=== PATIENT | male | born 1940 | race Caucasian/White ===

== ENCOUNTER 2022-11-06 09:10 | Outpatient (RCR) | payer MEDICARE, SELFPAY | END 2022-12-11 12:19 | disposition home or self-care (01) | LOC: PT 09:10 | PROVIDERS: PCP Family Medicine; Visit Provider Anesthesiology Pain Medicine | DX: M62.838 Other muscle spasm (principal); G57.81 Other specified mononeuropathies of right lower limb | CPT/HCPCS: 97113; 97530 ==

== ENCOUNTER 2022-11-14 10:21 | Outpatient (OUT) | payer MEDICARE, SELFPAY ==
--- NOTE | 2022-11-14 11:01 | PM.CN ---
Consult Note: HPI Data of Consult Patient: known to practice within the last 3 years Consult date: 11/14/22 Requesting Physician: SYLVIA ZUNIGA NP Primary Care Provider: Non-Staff Physician, Family Provider: BASSEM Consult Narrative Reason for consult: back pain Narrative: He had LICH done 10/14/22 . He has had 80% relief for several hours after procedure. He would like to proceed with RFA of same area. He is doing aquatic therapy now. No new sensorimotor sx or new bowel or bladder issues. Medication regimen is controlling his pain and assisting him to be able to comlete ADLs. Pain is right low back and buttock, SI pain. No radiculopathy. cc:: CC: SYLVIA ZUNIGA NP Review of Systems ROS Status of ROS 10 or more systems reviewed and unremarkable except as noted in history and below Musculoskeletal Reports: back pain Exam Constitutional Documenting provider has reviewed patient's vital signs: yes Common normals: no apparent distress, average body habitus, oriented x3, healthy appearing, alert and well nourished Orientation/consciousness: Yes awake, Yes oriented to person, Yes oriented to place and Yes oriented to time HENCT Common normals: normocephalic, external ears normal, nasal mucous membranes and turbinates normal and moist oral mucous membranes Respiratory Common normals: normal respiratory effort, no retractions and no use of accessory muscles Effort & inspection: able to speak in complete sentences and symmetric chest movement Back & Pelvis Lumbar spine/lower back: normal to inspection, ROM limited, pain with ROM, paraspinal muscle tenderness and straight leg raise negative bilaterally (positive luis right, positive gaenslens and thigh thrust right, ) Extremity Common normals: normal to inspection, normal capillary refill and no pedal edema Other: muscle strength 4/5 bilat with intact sensation. walks with walker Assessment and Plan Assessment and Plan (1) Lumbar spondylosis: (2) Sacroiliac joint pain: Plan schedule for thermal RFA right LCIH with sedation
== END 2022-11-14 10:22 ==
PROVIDERS: Visit Provider Nurse Practitioner
DX: M47.816 Spondylosis without myelopathy or radiculopathy, lumbar region (principal); M53.3 Sacrococcygeal disorders, not elsewhere classified
CPT/HCPCS: G0463

== ENCOUNTER 2022-11-21 11:55 | Outpatient (OUT) | payer MEDICARE, SELFPAY ==
--- NOTE | 2022-11-21 | ECG_ITS ---
[facility] Test Date: 2022-11-21 Pat Name: Jair Staley Department: Room: - Gender: Male Disease Control Inspector: : 1940 Requested By: [id number] Order Number: [id number] Reading MD: EMORY HOLDER Measurements Intervals [place] Rate: 75 P: 91 NM: 184 QRS: 111 QRSD: 141 T: 37 QT: 404 QTc: 453 Interpretive Statements SINUS RHYTHM INTRAVENTRICULAR CONDUCTION DELAY [130+ ms QRS DURATION] LATERAL MYOCARDIAL INFARCTION [40+ ms Q WAVE AND/OR ST/T ABNORMALITY IN I/aVL/V5/V6], PROBABLY RECENT ACUTE NC No previous ECG available for comparison Electronically Signed On 11-24-2022 7:45:42 EDT by EMORY HOLDER
== END 2022-11-21 11:56 ==
LOC: CARD 11:57
PROVIDERS: Visit Provider Anesthesiology Pain Medicine
DX: Z01.810 Encounter for preprocedural cardiovascular examination (principal)
CPT/HCPCS: 93005

== ENCOUNTER 2023-01-26 08:33 | Outpatient (OUT) | payer MEDICARE, SELFPAY ==
--- NOTE | 2023-01-26 | NM_ITS ---
Patient: EMIR BARNES Exam Date: 01/26/2023 : 1940 Gender:M Ordering : DR ANIL JUDGE Admission #: [id number] Family : Non-Staff Physician Order #: [id number] CLICK HERE TO VIEW EXAM RADIOLOGY REPORT PROCEDURE: NM JAIME PERF SPECT REST STR COMPARISON: None. INDICATIONS: ABNORMAL EKG, HIGH CAD RISK TECHNIQUE: Exam Description: Stress/Rest one day protocol gated SPECT Rest Imagin.5 mCi Tc-99m Cardiolite IV on 01/26/2023 Stress Imaging 30.6 mCi Tc-99m Cardiolite IV on 01/26/2023 Exercise Protocol: 0.4 mg Lexiscan given IV Heart Rate (bpm): Rest: 60 Max: 98 PMHR: 70 Blood Pressure: Rest: 128/68 Max: 128/68 Symptoms: Rest and peak stress ECG findings were abnormal and the exercise portion of the study was abnormal per attending physician Dr. Silvestre due to downsloping inferolateral leads. For more details please see separate cardiac stress test report. FINDINGS: QUALITY OF STUDY: Excellent. PERFUSION DEFECT: LOCATION: Basal inferoseptal. Basal inferior. Mid-inferoseptal. Mid-inferior. SIZE: Medium (3-4 segments). SEVERITY: Severe. TYPE: Mixed. WALL MOTION: Mild hypokinesis: Basal inferoseptal. Basal inferior. Mid-inferoseptal. Mid-inferior. LV SIZE: Normal. 76 mL. TID / TCD: None; 0.8 LVEF: Normal. Calculated EF 68%. SUMMARY: Myocardial perfusion imaging study has ABNORMAL findings. CONCLUSION: 1. Significantly decreased perfusion of the inferior wall and inferior septal wall during stress imaging with slight reperfusion during rest imaging consistent with acute ischemia. 2. Mild hypokinesis of the inferior and inferior septal bender. 3. Normal left ventricle volume and ejection fraction. Dr. Judge is being notified of these findings. Dictated by: Mega Whyte M.D. on 01/27/2023 at 11:15 Approved by: Mega Whyte M.D. on 01/27/2023 at 11:23
[2023-01-26] MEDS: REGADENOSON 0.4 MG/5 ML SYRINGE IV (10:15)
--- NOTE | 2023-01-27 07:08 | PM.STRESS ---
Stress Test Stress Test Allergies Allergy/AdvReac Type Severity Reaction Status Date / Time No Known Drug Allergies Allergy Verified 11/14/22 13:46 Requesting physician: ANIL CONTRERAS Procedure: Lexiscan stress test General Information: Reason for Stress Test: Abnormal EKG Cardiac History and Risk Factors: Former smoker Resting 12 - Lead Electrocardiogram: Rate & rhythm: Normal sinus at a rate of 60. [place]: Right T-waves: Normal ST-segments: Subtle ST segment downsloping in III and V6 Non-specific intraventricular block is present Comparison from prior EKG 11/21/2022: More prominent downsloping in II, III, aVF and V6 Stress Test: Protocol: Lexiscan protocol was initiated with injection of 0.4mg Lexiscan IV push followed by Cardiolite. Blood pressure: Initial & maximum: 128/68 Rate & rhythm: Patient remained in sinus rhythm during the exercise and recovery portions of the study.? The maximum heart rate was 98, which was 70% of the maximum predicted heart rate 139. Occasional PVCs noted. ST-segments & T-waves: After injection of Lexiscan, ST downsloping became prominent in III and V6 with 1mm J-point depression, along with ST segment downsloping in II, aVF, and V5. Patient response/symptoms: There were no symptoms. Interpretation: This is an abnormal Lexiscan stress test based on ST segment downsloping in the inferolateral leads.? No symptoms were reported.? Cardiolite imaging interpretation will be reported separately.? Clinical correlation required.?
== END 2023-01-26 08:34 | disposition home or self-care (01) ==
LOC: NM 08:33
PROVIDERS: Visit Provider Family Medicine
DX: R94.31 Abnormal electrocardiogram [ECG] [EKG] (principal)
CPT/HCPCS: 78452; 93017; A9500; J2785

== ENCOUNTER 2023-02-05 15:08 | Outpatient (OUT) | payer MEDICARE, SELFPAY ==
--- NOTE | 2023-02-05 15:26 | PM.CN ---
Consult Note: HPI Data of Consult Patient: known to practice within the last 3 years Requesting Physician: Eva Onofre NP Primary Care Provider: Non-Staff Physician, Family Provider: BASSEM Consult Narrative Reason for consult: chronic back and hip pain Narrative: Jair Staley a pleasant 82 year old male presents for follow up on chronic low back and hip pain. Today pain 5/10. Patient is awaiting cardiac surgery (unknown what) end of April, so we are not proceeding with Right LCIH RFA at this time. Patient has benefitted from aqua therapy and current medication regimen. Patient would like to continue current treatment plan. cc:: CC: Eva Onofre NP Review of Systems ROS Status of ROS 10 or more systems reviewed and unremarkable except as noted in history and below Musculoskeletal Reports: back pain and other (right LCIH pain/muscle spasms) [facility] Medical History (Updated 02/05/23 @ 15:56 by Eva Onofre NP) Surgical History Meds Home Medications and Allergies Home Medications Medication Instructions Recorded Confirmed Type aspirin 81 mg capsule 81 mg PO DAILY 11/14/22 11/14/22 History diclofenac sodium 50 mg 50 mg PO BID 11/14/22 11/14/22 History tablet,delayed release hydrocodone 5 mg-acetaminophen 325 tab 11/14/22 History mg tablet lisinopril 20 1 tab PO DAILY 11/14/22 11/14/22 History mg-hydrochlorothiazide 12.5 mg tablet melatonin 3 mg tablet 3 mg PO .HS 11/14/22 11/14/22 History methocarbamol 500 mg tablet 500 mg PO BID 11/14/22 11/14/22 History nvtkgovg-vox-tythj acid 0.4 1 tab PO DAILY 11/14/22 11/14/22 History mg-lycopene 300 mcg-lutein 250 mcg tablet (Centrum Silver) omeprazole 40 mg capsule,delayed 40 mg PO DAILY 11/14/22 11/14/22 History release polyethylene glycol 3350 17 17 g PO DAILY 11/14/22 11/14/22 History gram/dose oral powder pregabalin 50 mg capsule (Lyrica) 50 mg PO TID 11/14/22 11/14/22 History simvastatin 20 mg tablet 20 mg PO .HS 11/14/22 11/14/22 History hydrocodone 5 mg-acetaminophen 325 1 tab PO BID PRN pain #60 tabs 02/05/23 Rx mg tablet Allergies Allergy/AdvReac Type Severity Reaction Status Date / Time No Known Drug Allergies Allergy Verified 11/14/22 13:46 Exam Constitutional Documenting provider has reviewed patient's vital signs: yes Common normals: no apparent distress, oriented x3, healthy appearing, alert and well nourished General appearance: cooperative HENMT Common normals: normocephalic, hearing grossly normal bilaterally and moist oral mucous membranes Head and scalp: normocephalic Eye Common normals: PERRL Pupil: PERRL Neck & C-Spine Common normals: full ROM General: normal visual inspection Chest Common normals: inspection of chest normal Respiratory Common normals: normal respiratory effort, no retractions and no use of accessory muscles Back & Pelvis Lumbar spine/lower back: pain with ROM and straight leg raise negative bilaterally Sacroiliac joints: SI joint(s) abnormal (right positive thigh thrust, jose smith. ) Extremity Common normals: normal to inspection and full ROM Neuro Common normals: oriented x3, CN's II-XII intact bilaterally, moves all extremities, no focal motor deficits, no sensory deficits noted and deep tendon reflexes 2+ bilaterally Sensorium/orientation: alert Motor exam: strength 5/5 throughout and no movement abnormalities noted Other: short term memory loss Psych Common normals: mental status grossly normal, thought process normal, cooperative, affect normal, speech normal and activity/motor behavior normal Speech: normal speech Thought process: normal thought process Results Additional Findings Additional findings: I have checked an OARRS report on this patient today and there are no aberrancies noted in the prescribing history.?? A drug screen was completed and reviewed within the last year, and if there has not been a drug screen completed we ordered one today to monitor higher risk, state monitored pain medication use. As part of providing excellent, safe, comprehensive care, the following was completed at our patient's visit: 1. A medication reconciliation and review to ensure accurate knowledge of current/active medications, including asking our patients to inform us about any mill-lsv-ocykcht medications or herbal remedies/nutritional supplements/alternative remedies. 2. A review to specifically ensure our patients have had annual screening for: elevated body mass index (BMI), tobacco use, screening for depression, and screening for unhealthy alcohol use. When screening is concerning, patients are provided with education and the specific recommendation to discuss the concerning health issue and treatment options with their primary care provider. Assessment and Plan Assessment and Plan (1) Neuritis: (2) Muscle spasm: (3) Sacroiliac joint pain: (4) Lumbar spondylosis: (5) Chronic prescription opiate use: Assessment and Plan: tolerating well with functional improvement. no negative side effects Plan refill norco 5-325mg BID PRN, will write for fpc of offer dose in afternoon as patient routinely forgets to ask and lets pain get too bad before taking HS dose refill lyrica 50mg TID continue robaxin 500mg TID continue tylenol 500mg PRN not to exceed max combined dose 3000mg plan for RFA of right LCIH nerve after cardiac procedure will obtain note from cardiology office to find out more about their plan f/u 3 months
== END 2023-02-05 15:09 ==
PROVIDERS: Visit Provider Nurse Practitioner
DX: M47.26 Other spondylosis with radiculopathy, lumbar region (principal); M62.838 Other muscle spasm; M53.3 Sacrococcygeal disorders, not elsewhere classified; Z79.891 Long term (current) use of opiate analgesic
CPT/HCPCS: G0463

== ENCOUNTER 2023-04-23 14:59 | Outpatient (OUT) | payer MEDICARE, SELFPAY ==
--- NOTE | 2023-04-23 15:14 | P.CN_ITS ---
Consult Note: HPI Data of Consult Patient: known to practice within the last 3 years Requesting Physician: Eva Onofre NP Primary Care Provider: Non-Staff Physician, Family Provider: DMISC Consult Narrative Reason for consult: chronic back and hip pain Narrative: Jair Staley a pleasant 82 year old male presents for follow up on chronic low back and hip pain. Today pain 08/15. Patient is awaiting cardiac surgery, so we are not proceeding with Right LCIH RFA at this time. Patient has benefitted from aqua therapy and current medication regimen. Patient would like to continue current treatment plan. cc:: CC: Eva Onofre NP Review of Systems ROS Status of ROS 10 or more systems reviewed and unremarkable except as noted in history and below Musculoskeletal Reports: back pain and other (right LCIH pain/muscle spasms) PFSH PFSH Medical History Acid reflux ?K21.9 - Gastro-esophageal reflux disease without esophagitis (ICD-10) Heart murmur ?R01.1 - Cardiac murmur, unspecified (ICD-10) High cholesterol ?E78.00 - Pure hypercholesterolemia, unspecified (ICD-10) Hypertension ?I10 - Essential (primary) hypertension (ICD-10) Low back pain ?M54.50 - Low back pain, unspecified (ICD-10) Prostate cancer ?C61 - Malignant neoplasm of prostate (ICD-10) Surgical History H/O hemorrhoidectomy ?Z98.890 - Other specified postprocedural states (ICD-10) H/O umbilical hernia repair ?Z98.890 - Other specified postprocedural states (ICD-10) ?Z87.19 - Personal history of other diseases of the digestive system (ICD-10) History of tonsillectomy and adenoidectomy ?Z90.89 - Acquired absence of other organs (ICD-10) Hx of cystoscopy ?Z98.890 - Other specified postprocedural states (ICD-10) Meds Home Medications and Allergies Home Medications Medication Instructions Recorded Confirmed Type aspirin 81 mg capsule 81 mg PO DAILY 11/14/22 11/14/22 History diclofenac sodium 50 mg 50 mg PO BID 11/14/22 11/14/22 History tablet,delayed release hydrocodone 5 mg-acetaminophen 325 tab 11/14/22 History mg tablet lisinopril 20 1 tab PO DAILY 11/14/22 11/14/22 History mg-hydrochlorothiazide 12.5 mg tablet melatonin 3 mg tablet 3 mg PO .HS 11/14/22 11/14/22 History methocarbamol 500 mg tablet 500 mg PO BID 11/14/22 11/14/22 History nazktywe-kry-giahr acid 0.4 1 tab PO DAILY 11/14/22 11/14/22 History mg-lycopene 300 mcg-lutein 250 mcg tablet (Centrum Silver) omeprazole 40 mg capsule,delayed 40 mg PO DAILY 11/14/22 11/14/22 History release polyethylene glycol 3350 17 17 g PO DAILY 11/14/22 11/14/22 History gram/dose oral powder pregabalin 50 mg capsule (Lyrica) 50 mg PO TID 11/14/22 11/14/22 History simvastatin 20 mg tablet 20 mg PO .HS 11/14/22 11/14/22 History hydrocodone 5 mg-acetaminophen 325 1 tab PO BID PRN pain #60 tabs 02/05/23 Rx mg tablet Allergies Allergy/AdvReac Type Severity Reaction Status Date / Time No Known Drug Allergies Allergy Verified 11/14/22 13:46 Exam Constitutional Documenting provider has reviewed patient's vital signs: yes Common normals: no apparent distress, oriented x3, healthy appearing, alert and well nourished General appearance: cooperative [facility] Common normals: normocephalic, hearing grossly normal bilaterally and moist oral mucous membranes Head and scalp: normocephalic Eye Common normals: PERRL Pupil: PERRL Neck & C-Spine Common normals: full ROM General: normal visual inspection Chest Common normals: inspection of chest normal Respiratory Common normals: normal respiratory effort, no retractions and no use of accessory muscles Back & Pelvis Lumbar spine/lower back: pain with ROM and straight leg raise negative bilaterally Sacroiliac joints: SI joint(s) abnormal (right positive thigh thrust, jose smith. ) Extremity Common normals: normal to inspection and full ROM Neuro Common normals: oriented x3, CN's II-XII intact bilaterally, moves all extremities, no focal motor deficits, no sensory deficits noted and deep tendon reflexes 2+ bilaterally Sensorium/orientation: alert Motor exam: strength 5/5 throughout and no movement abnormalities noted Other: short term memory loss Psych Common normals: mental status grossly normal, thought process normal, cooperative, affect normal, speech normal and activity/motor behavior normal Speech: normal speech Thought process: normal thought process Assessment and Plan Assessment and Plan (1) Neuritis: (2) Muscle spasm: (3) Sacroiliac joint pain: (4) Lumbar spondylosis: (5) Chronic prescription opiate use: Assessment and Plan: tolerating well with functional improvement. no negative side effects Plan refill norco 5-325mg BID PRN refill lyrica 50mg TID continue robaxin 500mg TID continue tylenol 500mg PRN not to exceed max combined dose 3000mg plan for RFA of right LCIH nerve after cardiac procedure (05/06/23 then f/u appointments) f/u 3 months
== END 2023-04-23 15:00 | disposition home or self-care (01) ==
LOC: PM 15:00
PROVIDERS: Visit Provider Nurse Practitioner
DX: M79.2 Neuralgia and neuritis, unspecified (principal); M62.838 Other muscle spasm; M53.3 Sacrococcygeal disorders, not elsewhere classified; M47.816 Spondylosis without myelopathy or radiculopathy, lumbar region; Z79.891 Long term (current) use of opiate analgesic
CPT/HCPCS: G0463

== ENCOUNTER 2023-07-22 15:00 | Outpatient (OUT) | payer MEDICARE, SELFPAY ==
--- NOTE | 2023-07-22 15:22 | PM.CN ---
Consult Note: HPI Data of Consult Patient: known to practice within the last 3 years Requesting Physician: Eva Onofre NP Primary Care Provider: Non-Staff Physician, Family Provider: BASSEM Consult Narrative Reason for consult: chronic back and hip pain Narrative: Jair Staley a pleasant 82 year old male presents for follow up on chronic low back and hip pain. Today pain 9/10 in low back and bilateral hips. Patient reports pain increased with bending, ADLS, walking, decreased with sitting. Patient reports at the facility he resides in he is not able to take medications after 10pm because there is no nurse to administer his medications, he is finding that he cannot sleep due to pain as his medication wears off within 4 hours and he stays awake until 2am. Patient would like to discuss increasing his pain medication. Patient has been very compliant with medication regimen and has failed conservative measures, has found benefit to hydrocodone-acetaminophen 5-325 in the past without side effects. cc:: CC: Eva Onofre NP Review of Systems ROS Status of ROS 10 or more systems reviewed and unremarkable except as noted in history and below Musculoskeletal Reports: back pain and other (right [facility] pain/muscle spasms) PFSH PFS Medical History Acid reflux ?K21.9 - Gastro-esophageal reflux disease without esophagitis (ICD-10) Heart murmur ?R01.1 - Cardiac murmur, unspecified (ICD-10) High cholesterol ?E78.00 - Pure hypercholesterolemia, unspecified (ICD-10) Hypertension ?I10 - Essential (primary) hypertension (ICD-10) Low back pain ?M54.50 - Low back pain, unspecified (ICD-10) Prostate cancer ?C61 - Malignant neoplasm of prostate (ICD-10) Surgical History Hx of cystoscopy ?Z98.890 - Other specified postprocedural states (ICD-10) H/O umbilical hernia repair ?Z98.890 - Other specified postprocedural states (ICD-10) ?Z87.19 - Personal history of other diseases of the digestive system (ICD-10) History of tonsillectomy and adenoidectomy ?Z90.89 - Acquired absence of other organs (ICD-10) H/O hemorrhoidectomy ?Z98.890 - Other specified postprocedural states (ICD-10) Meds Home Medications and Allergies Home Medications Medication Instructions Recorded Confirmed Type aspirin 81 mg capsule 81 mg PO DAILY 11/14/22 11/14/22 History diclofenac sodium 50 mg 50 mg PO BID 11/14/22 11/14/22 History tablet,delayed release hydrocodone 5 mg-acetaminophen 325 tab 11/14/22 History mg tablet lisinopril 20 1 tab PO DAILY 11/14/22 11/14/22 History mg-hydrochlorothiazide 12.5 mg tablet melatonin 3 mg tablet 3 mg PO .HS 11/14/22 11/14/22 History methocarbamol 500 mg tablet 500 mg PO TID 11/14/22 04/23/23 History fflrplek-klk-vugwo acid 0.4 1 tab PO DAILY 11/14/22 11/14/22 History mg-lycopene 300 mcg-lutein 250 mcg tablet (Centrum Silver) omeprazole 40 mg capsule,delayed 40 mg PO DAILY 11/14/22 11/14/22 History release polyethylene glycol 3350 17 17 g PO DAILY 11/14/22 11/14/22 History gram/dose oral powder pregabalin 50 mg capsule (Lyrica) 50 mg PO TID 11/14/22 11/14/22 History simvastatin 20 mg tablet 20 mg PO .HS 11/14/22 11/14/22 History hydrocodone 5 mg-acetaminophen 325 1 tab PO BID PRN pain #60 tabs 02/05/23 Rx mg tablet hydrocodone 5 mg-acetaminophen 325 1 tab PO BID PRN pain #60 tabs 05/28/23 Rx mg tablet Allergies Allergy/AdvReac Type Severity Reaction Status Date / Time No Known Drug Allergies Allergy Verified 11/14/22 13:46 Exam Constitutional Documenting provider has reviewed patient's vital signs: yes Common normals: no apparent distress, oriented x3, healthy appearing, alert and well nourished General appearance: cooperative HENMT Common normals: normocephalic, hearing grossly normal bilaterally and moist oral mucous membranes Head and scalp: normocephalic Eye Common normals: PERRL Pupil: PERRL Neck & C-Spine Common normals: full ROM General: normal visual inspection Chest Common normals: inspection of chest normal Respiratory Common normals: normal respiratory effort, no retractions and no use of accessory muscles Back & Pelvis Lumbar spine/lower back: pain with ROM and straight leg raise negative bilaterally Sacroiliac joints: SI joint(s) abnormal (right positive thigh thrust, jose smith. ) Extremity Common normals: normal to inspection and full ROM Neuro Common normals: oriented x3, CN's II-XII intact bilaterally, moves all extremities, no focal motor deficits, no sensory deficits noted and deep tendon reflexes 2+ bilaterally Sensorium/orientation: alert Motor exam: strength 5/5 throughout and no movement abnormalities noted Other: short term memory loss Psych Common normals: mental status grossly normal, thought process normal, cooperative, affect normal, speech normal and activity/motor behavior normal Speech: normal speech Thought process: normal thought process Results Additional Findings Additional findings: I have checked an [place]AR[place] report on this patient today and there are no aberrancies noted in the prescribing history.?? A drug screen was completed and reviewed within the last year, and if there has not been a drug screen completed we ordered one today to monitor higher risk, state monitored pain medication use. As part of providing excellent, safe, comprehensive care, the following was completed at our patient's visit: 1. A medication reconciliation and review to ensure accurate knowledge of current/active medications, including asking our patients to inform us about any xadz-mtj-jcomtue medications or herbal remedies/nutritional supplements/alternative remedies. 2. A review to specifically ensure our patients have had annual screening for: elevated body mass index (BMI), tobacco use, screening for depression, and screening for unhealthy alcohol use. When screening is concerning, patients are provided with education and the specific recommendation to discuss the concerning health issue and treatment options with their primary care provider. Assessment and Plan Assessment and Plan (1) Chronic prescription opiate use: Assessment and Plan: I have refilled the patient's opioid prescriptions at the above noted dose and schedule.? I feel these medications are improving the patient's quality of life and allow them to tolerate activities of daily living as well as participate in recreational activity.? The patient does not report intolerable side effects. The patient is NOT opioid naive and non-pharmacologic and non-opioid treatment has failed to significantly relieve the patient's pain and improve functionality. The patient has a diagnosis that is related to a somatic or visceral pain etiology. ? ?? I reviewed with the patient the potential risks and side effects with the use of? opioid medications including but not limited to respiratory depression,? sedation, and even . I verified the patient has access to naloxone should? these effects occur. I advised the patient to avoid the use of any other? sedation substances including alcohol, THC, and benzodiazepines while? taking opioid medications due to the risk of compounding side effects and? detrimental outcomes. I reviewed the ORTHOPEDICS PEDIATRIC PHYSICIAN, pain treatment agreement, urine? drug screen, and opioid start talking forms. The patient was advised to let? their family know they had Naloxone in case they would need to administer? the medication.? ?? A drug screen was completed within the last year, and no aberrancies were noted regarding their use of controlled substances. The patient understands they are subject to the terms and conditions of the pain contract that they have signed. ? ?? I have checked an OARRS report on this patient today and there are no aberrancies noted in the prescribing history.? (2) Neuritis: (3) Muscle spasm: (4) Sacroiliac joint pain: (5) Lumbar spondylosis: Plan increase norco to 7.5-325mg BID PRN continue HEP as tolerated f/u 1 month
== END 2023-07-22 15:01 | disposition home or self-care (01) ==
PROVIDERS: Visit Provider Nurse Practitioner
DX: Z79.891 Long term (current) use of opiate analgesic (principal); M79.2 Neuralgia and neuritis, unspecified; M62.838 Other muscle spasm; M53.3 Sacrococcygeal disorders, not elsewhere classified; M47.816 Spondylosis without myelopathy or radiculopathy, lumbar region
CPT/HCPCS: G0463

== ENCOUNTER 2023-08-19 15:11 | Outpatient (OUT) | payer MEDICARE, SELFPAY ==
--- NOTE | 2023-08-19 15:19 | PM.CN ---
Consult Note: HPI Data of Consult Patient: known to practice within the last 3 years Requesting Physician: Eva Onofre NP Primary Care Provider: Non-Staff Physician, Family Provider: DMISC Consult Narrative Reason for consult: chronic back and hip pain Narrative: Jair Staley a pleasant 82 year old male presents for follow up on chronic low back and hip pain. Patient reporting increase in numbness tingling and pain radiating into groin and legs with ambulation and standing. Pt has a hx of lumbar facet arthropathy, DDD, and lumbar stenosis on prior MRI. Patient noticing improvement in pain and sleep with increase of norco to 7.5mg BID PRN moderate to severe pain. Patient continues to have moderate to severe pain impacting functional ability, today GLORIA 56%% previously 28%. cc:: CC: Eva Onofre NP Review of Systems ROS Status of ROS 10 or more systems reviewed and unremarkable except as noted in history and below Musculoskeletal Reports: back pain and other (right [facility] pain/muscle spasms) PFSH PFSH Medical History Low back pain ?M54.50 - Low back pain, unspecified (ICD-10) Acid reflux ?K21.9 - Gastro-esophageal reflux disease without esophagitis (ICD-10) Prostate cancer ?C61 - Malignant neoplasm of prostate (ICD-10) Heart murmur ?R01.1 - Cardiac murmur, unspecified (ICD-10) High cholesterol ?E78.00 - Pure hypercholesterolemia, unspecified (ICD-10) Hypertension ?I10 - Essential (primary) hypertension (ICD-10) Surgical History Hx of cystoscopy ?Z98.890 - Other specified postprocedural states (ICD-10) H/O umbilical hernia repair ?Z98.890 - Other specified postprocedural states (ICD-10) ?Z87.19 - Personal history of other diseases of the digestive system (ICD-10) History of tonsillectomy and adenoidectomy ?Z90.89 - Acquired absence of other organs (ICD-10) H/O hemorrhoidectomy ?Z98.890 - Other specified postprocedural states (ICD-10) Meds Home Medications and Allergies Home Medications Medication Instructions Recorded Confirmed Type aspirin 81 mg capsule 81 mg PO DAILY 11/14/22 11/14/22 History diclofenac sodium 50 mg 50 mg PO BID 11/14/22 11/14/22 History tablet,delayed release hydrocodone 5 mg-acetaminophen 325 tab 11/14/22 History mg tablet lisinopril 20 1 tab PO DAILY 11/14/22 11/14/22 History mg-hydrochlorothiazide 12.5 mg tablet melatonin 3 mg tablet 3 mg PO .HS 11/14/22 11/14/22 History methocarbamol 500 mg tablet 500 mg PO TID 11/14/22 04/23/23 History obxxbfjr-hqp-soudi acid 0.4 1 tab PO DAILY 11/14/22 11/14/22 History mg-lycopene 300 mcg-lutein 250 mcg tablet (Centrum Silver) omeprazole 40 mg capsule,delayed 40 mg PO DAILY 11/14/22 11/14/22 History release polyethylene glycol 3350 17 17 g PO DAILY 11/14/22 11/14/22 History gram/dose oral powder pregabalin 50 mg capsule (Lyrica) 50 mg PO TID 11/14/22 11/14/22 History simvastatin 20 mg tablet 20 mg PO .HS 11/14/22 11/14/22 History hydrocodone 5 mg-acetaminophen 325 1 tab PO BID PRN pain #60 tabs 02/05/23 Rx mg tablet hydrocodone 5 mg-acetaminophen 325 1 tab PO BID PRN pain #60 tabs 05/28/23 Rx mg tablet hydrocodone 7.5 mg-acetaminophen 1 tab PO BID PRN pain #60 tabs 07/22/23 Rx 325 mg tablet Allergies Allergy/AdvReac Type Severity Reaction Status Date / Time No Known Drug Allergies Allergy Verified 11/14/22 13:46 Exam Constitutional Documenting provider has reviewed patient's vital signs: yes Common normals: no apparent distress, oriented x3, healthy appearing, alert and well nourished General appearance: cooperative HENMT Common normals: normocephalic, hearing grossly normal bilaterally and moist oral mucous membranes Head and scalp: normocephalic Eye Common normals: PERRL Pupil: PERRL Neck & C-Spine Common normals: full ROM General: normal visual inspection Chest Common normals: inspection of chest normal Respiratory Common normals: normal respiratory effort, no retractions and no use of accessory muscles Back & Pelvis Lumbar spine/lower back: pain with ROM and straight leg raise negative bilaterally Sacroiliac joints: SI joint(s) abnormal (right positive thigh thrust, jose smith. ) Other: strength 4/5 in BLE Extremity Common normals: normal to inspection and full ROM Neuro Common normals: oriented x3, CN's II-XII intact bilaterally, moves all extremities, no focal motor deficits, no sensory deficits noted and deep tendon reflexes 2+ bilaterally Sensorium/orientation: alert Gait (neuro): assistive device used walker Motor exam: no movement abnormalities noted and strength abnormal Other: short term memory loss Psych Common normals: mental status grossly normal, thought process normal, cooperative, affect normal, speech normal and activity/motor behavior normal Speech: normal speech Thought process: normal thought process Results Additional Findings Additional findings: If on a controlled substance or opioids, I have checked an OARRS report on this patient and there are no aberrancies noted in the prescribing history.??If on a controlled substance or opioid a drug screen was completed and reviewed within the last year, and if there has not been a drug screen completed we ordered one today to monitor higher risk, state monitored pain medication use. As part of providing excellent, safe, comprehensive care, the following was completed at our patient's visit: 1. A medication reconciliation and review to ensure accurate knowledge of current/active medications, including asking our patients to inform us about any xsna-spy-bzyeypd medications or herbal remedies/nutritional supplements/alternative remedies. 2. A review to specifically ensure our patients have had annual screening for screening for depression, screening for tobacco use, and screening for unhealthy alcohol use. For concerning screenings had a discussion with the patient, provided patient education, and recommended follow-up with primary care provider when appropriate. If patient noted with a risk of falling, they received education on strength, gait, and balance training to prevent future risk of falling. Assessment and Plan Assessment and Plan (1) Lumbar stenosis with neurogenic claudication: (2) Chronic prescription opiate use: Assessment and Plan: I have refilled the patient's opioid prescriptions at the above noted dose and schedule.? I feel these medications are improving the patient's quality of life and allow them to tolerate activities of daily living as well as participate in recreational activity.? The patient does not report intolerable side effects. The patient is NOT opioid naive and non-pharmacologic and non-opioid treatment has failed to significantly relieve the patient's pain and improve functionality. The patient has a diagnosis that is related to a somatic or visceral pain etiology. ? ?? I reviewed with the patient the potential risks and side effects with the use of? opioid medications including but not limited to respiratory depression,? sedation, and even . I verified the patient has access to naloxone should? these effects occur. I advised the patient to avoid the use of any other? sedation substances including alcohol, THC, and benzodiazepines while? taking opioid medications due to the risk of compounding side effects and? detrimental outcomes. I reviewed the MICROMATIC HONE OPERATOR, pain treatment agreement, urine? drug screen, and opioid start talking forms. The patient was advised to let? their family know they had Naloxone in case they would need to administer? the medication.? ?? A drug screen was completed within the last year, and no aberrancies were noted regarding their use of controlled substances. The patient understands they are subject to the terms and conditions of the pain contract that they have signed. ? ?? I have checked an OARRS report on this patient today and there are no aberrancies noted in the prescribing history.? (3) Neuritis: Assessment and Plan: plan for right [facility] RFA with Dr Boo in the future (4) Muscle spasm: (5) Sacroiliac joint pain: (6) Lumbar spondylosis: Plan bilateral L3-4 TFESI then bilateral L4-5 TFESI 2 weeks following increase lyrica to 75mg TID, side effects and risks vs benefits discussed continue norco to 7.5-325mg BID PRN continue HEP as tolerated f/u 2 weeks after injections
== END 2023-08-19 15:12 | disposition home or self-care (01) ==
LOC: PM 15:11
PROVIDERS: Visit Provider Nurse Practitioner
DX: M48.062 Spinal stenosis, lumbar region with neurogenic claudication (principal); Z79.891 Long term (current) use of opiate analgesic; M79.2 Neuralgia and neuritis, unspecified; M62.838 Other muscle spasm; M53.3 Sacrococcygeal disorders, not elsewhere classified; M47.816 Spondylosis without myelopathy or radiculopathy, lumbar region
CPT/HCPCS: G0463

== ENCOUNTER → 2023-09-07 10:17 | Day surgery (SDC) | payer MEDICARE, SELFPAY ==
[2023-09-07 10:57] VITALS: BP 113/73; PULSE 85; TEMP 36.2; O2SAT 96
[2023-09-07 11:23] VITALS: BP 112/62; BP 116/62; PULSE 70; PULSE 74; O2SAT 93; O2SAT 98
[2023-09-07] MEDS: 0.9 % SODIUM CHLORIDE 10 ML INJ (11:23)
[2023-09-07] MEDS: BUPIVACAINE HCL 0.25% PF 25 MG/10 ML VIAL INJ (11:24)
[2023-09-07] MEDS: DEXAMETHASONE SOD PHOS 10 MG/ML VIAL INJ (11:24)
[2023-09-07] MEDS: IOHEXOL 240 MG/ML - 10 ML VIAL INJ (11:24)
[2023-09-07] MEDS: LIDOCAINE HCL 2% PF 100 MG/5 ML VIAL 3 ML INJ (11:25)
--- NOTE | 2023-09-07 11:27 | W.PM.PROCNOT ---
Date of procedure: 09/07/23 Pre-op diagnosis: Lumbar stenosis with neurogenic claudication Post-op diagnosis: same as pre-op Procedure: Procedure: Bilateral L3-4 transforaminal epidural steroid injection Medications: Bupivacaine 0.25% 2cc, lidocaine 2% 1cc, dexamethasone 10mg The patient was seen and examined in the preoperative holding area.? Informed consent was obtained and placed on the chart.? Patient was brought to the medical procedure unit and placed in the prone position where a timeout was completed verifying the correct patient, procedure site, position, and planned special equipment using sterile aseptic technique.? Under direct fluoroscopic visualization a 25-gauge Quincke tipped spinal needle was advanced at level left L3-4 to the designated neural foramen where contrast dye was injected to show adequate spread.? There was no evidence of vascular or adverse uptake.? Epidural spread was appreciated.? The above-mentioned injectate was then placed in a 1.5 mL aliquot preceded by negative aspiration.? The needle was removed. The same procedure, at the same level, was completed on the opposite side. ? Patient was taken to the postprocedural recovery area and monitored for an appropriate length of time before found suitable for discharge in the accompaniment of a responsible adult. Anesthesia: Local Surgeon: Cesar Brownlee Pathology: none sent Condition: stable Disposition: no change
--- OUTSIDE RECORDS SUMMARY | 2023-09-07 12:23 | XMS_ITS | CCD ---
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 Name Role Phone LIZET COLEMAN Primary Care Physician [phone] GARCIA ., EDMUNDO Consulting Unavailable FURLONG, DR SHMUEL Teresa Primary Care Unavailable DILLON ., DR ESTEPHANIE Dash Admitting Unavailable DILLON ., DR ESTEPHANIE Dash Attending Unavailable MISC, DR NOLASCO Primary Care Unavailable LAKSHMIPATHY ., HERACLIO Attending Sharon vailable LAKSHMIPATHY ., HERACLIO Admitting Sharon vailable DILLON ., DR ESTEPHANIE Dash Admitting Unavailable FURLONG, DR SHMUEL Teresa Primary Care Unavailable GARCIA ., EDMUNDO Consulting Unavailable DILLON ., DR ESTEPHANIE Dash Attending Unavailable DILLON ., DR ESTEPHANIE Dash Admitting Unavailable FURLONG, DR SHMUEL Teresa Primary Care Unavailable FURLONG, DR SHMUEL Teresa Consulting Unavailable DILLON ., DR ESTEPHANIE Dash Attending Unavailable GARCIA ., EDMUNDO Consulting Unavailable DILLON ., DR ESTEPHANIE Dash Admitting Unavailable FURLONG, DR SHMUEL Teresa Primary Care Unavailable DILLON ., DR ESTEPHANIE Dash Attending Unavailable DILLON ., DR ESTEPHANIE Dash Consulting Unavailable SWETHA HERNANDEZ Consulting Unavailable FURLONG, DR SHMUEL Teresa Primary Care Unavailable FURLONG, DR SHMUEL Teresa Consulting Unavailable DILLON ., DR ESTEPHANIE Dash Attending Unavailable DILLON ., DR ESTEPHANIE Dash Admitting Unavailable GARCIA ., EDMUNDO Consulting Unavailable MISC, DR NOLASCO Primary Care Unavailable MISC, DR NOLASCO Consulting Unavailable LAKSHMIPATHY ., HERACLIO Attending Sharon vailable LAKSHMIPATHY ., HERACLIO Admitting Sharon vailable FURLONG, DR SHMUEL Teresa Primary Care Unavailable GARCIA ., EDMUNDO Consulting Unavailable DILLON ., DR ESTEPHANIE Dash Attending Unavailable DILLON ., DR ESTEPHANIE Dash Admitting Unavailable MISC, DR NOLASCO Primary Care Unavailable LAKSHMIPATHY ., NARENDRANATH Attending Sharon vailable LAKSHMIPATHY ., NARENDRANATH Consulting Sharon vailable RANDYSHMIPATHY ., NARENDRANATH Admitting Sharon vailable DR SHMUEL JUDGE Primary Care Unavailable LAKSHMIPATHY ., NARENDRANATH Consulting Sharon vailable LAKSHMIPATHY ., NARENDRANATH Admitting Sharon vailable LAKSHMIPATHY ., NARENDRANATH Attending Sharon vailable Erika CAREY Admitting Unavailable Erika CAREY Attending Unavailable SHMUEL JUDGE Primary Care Unavailable Shmuel Judge DO Primary Care Provider EDILSON LLANES Attending Unavailable SHMUEL JUDGE Referring Unavailable SHMUEL JUDGE Primary Care Unavailable Medications Current Medications Medication Drug Class(es) Dates Sig (Normalized) Sig (Original) acetaminophen 500 mg oral tablet (3 sources) take 1 tablet by mouth every six hours as needed for pain acetaminophen (TYLENOL EXTRA STRENGTH) 500 mg tablet Take 1 tablet (500 mg total) by mouth every 6 (six) hours as needed for pain. 0 Active Acetaminophen / Caffeine / Magnesium Salicylate (1 source) Central Nervous System Stimulant, Methylxanthine Start: 02-21-2019 Arthriten Start Date: 02/21/19 Status: Ordered acetaminophen 325 mg / HYDROcodone bitartrate 5 mg oral tablet (3 sources) Opioid Agonist take 1 tablet by mouth every six hours as needed for pain HYDROcodone-acetam inophen (NORCO) 5-325 mg per tablet Take 1 tablet by mouth every 6 (six) hours as needed for pain. 0 Active Allergy Relief (1 source) Start: 02-21-2019 Allergy Relief Start Date: 02/21/19 Status: Ordered aspirin 81 mg chewable tablet (4 sources) Platelet Aggregation Inhibitor, Nonsteroidal Anti-inflammatory Drug Start: 02-21-2019 aspirin 81 mg Chew Tab 81 mg = 1 tab(s), Chewed, Daily Start Date: 02/21/19 Status: Ordered take 1 tablet by mouth in the mo rning aspirin 81 mg Take 1 tablet (81 mg total) by mouth in the morning. 0 Active bisacodyl 5 mg delayed release oral tablet (1 source) Stimulant Laxative Start: 09-18-2021 take 2 tablets by mouth once daily as needed for constipation bisacodyl 5 mg Oral EC Tab 10 mg = 2 tab(s), Oral, Daily, PRN for constipation, # 20 tab(s), Refills(s) 0 Start Date: 09/18/21 Status: Ordered cariprazine (1 source) Atypical Antipsychotic Start: 10-12-2020 Vraylar Oral, Daily, Refills(s) 0 Start Date: 10/12/20 Status: Ordered diclofenac potassium 50 mg oral tablet (4 sources) Nonsteroidal Anti-inflammatory Drug Start: 09-18-2021 take 1 mg by mouth three times daily diclofenac sodium 50 mg Oral EC Tab mg tab(s), Oral, TID, Refills(s) 0 Start Date: 09/18/21 Status: Ordered take 1 tablet by pallavi th twice daily as needed for pain diclofenac (VOLTAREN) 50 mg EC tablet Ta ke 1 tablet (50 mg total) by mouth 2 (two) times a day as needed (pain). 0 Active docusate sodium 100 mg oral capsule (3 sources) take 1 capsule by mouth in the morning, then take 1 capsule by mouth at bedtime docusate sodium (COLACE) 100 mg capsule Take 1 capsule (100 mg total) by mouth in the morning and 1 capsule (100 mg total) before bedtime. 0 Active hydroCHLOROthiazide 12.5 mg / lisinopril 20 mg oral tablet (4 sources) Thiazide Diuretic, Angiotensin Converting Enzyme Inhibitor Start: 02-22-20 take 1 tablet by mouth once daily hydrochlorothia zide-lisinopril 12.5 mg-20 mg Tab 1 tab(s), Oral, Daily Start Date: 02/21/19 Status: Ordered take 1 tablet by pallavi th in the morning, then take 0.5 tablet by mouth once daily lisinopril-hydroCHLOROthiazide (PRINZIDE ,ZESTORETIC) 20-12.5 mg per tablet Take 1 tablet by mouth in the morning. 1/2 tablet daily. 0 Active loratadine 10 mg oral tablet (3 sources) take 1 tablet by mouth in the morning loratadine (CLARITIN) 10 mg tablet Take 1 tablet (10 mg total) by mouth in the morning. 0 Active melatonin 10 mg oral tablet (3 sources) melatonin 10 mg tablet Take by mouth. 0 Active methocarbamol 500 mg oral tablet (4 sources) Muscle Relaxant Start: 3 take 1 tablet by mouth every eight hours methocarbamoL (ROBAXIN) 500 mg tablet Take 1 tablet (500 mg total) by mouth every 8 (eight) hours. 0 10/02/2022 Active Start: 09-18-2021 take 1 mg by mouth f our times daily Robaxin 500 mg Tab mg tab(s), Oral, QID, Refills(s) 0 Start Date: 09/18/21 Status: Ordered 24 hr metoprolol succinate 25 mg extended release oral tablet (1 source) beta-Adrenergic Dane Start: 06-10-2023 take 1 tablet by mouth every twenty-four hours in the morning metoprolol succinate XL (TOPROL XL) 25 mg 24 hr tablet Take 1 tablet (25 mg total) by mouth in the morning. 90 tablet 3 06/10/2023 Active Start: 06-10-2023 take 1 tablet by pallavi th every twenty-four hours in the morning metoprolol succinate XL (TOPROL XL) 25 mg 24 hr tablet Take 1 tablet (25 mg total) by mouth in the morning. 90 tablet 3 06/10/2023 Active Multi Vitamin+ (1 source) Start: 02-21-2019 Multi Vitamin+ Start Date: 02/21/19 Status: Ordered multivitamin capsule (3 sources) take 1 capsule by mouth in the morning multivitamin capsule Take 1 capsule by mouth in the morning. 0 Active gztqprhczbwl-wdeu-ds lic acid (CERTAVITE-ANTIOXIDA NT) 18-400 mg-mcg tablet (3 sources) multivitamin-iro n-f olic acid (CERTAVITE-ANTIOXID ANT) 18-400 mg-mcg tablet Take 1 capsule by mouth. 0 Active nitroglycerin 0.4 mg sublingual tablet (3 sources) Nitrate Vasodilator Start: 06-02-2023 nitroglycerin (NITROSTAT) 0.[address] 1 tablet (0.4 mg total) under the tongue every 5 (five) minutes as needed for chest pain. 25 tablet 1 06/02/2023 Active Omeprazole (4 sources) Proton Pump Inhibitor Start: 02-21-2019 omeprazole Start Date: 02/21/19 Status: Ordered take 1 capsule by mouth in the m orning omeprazole (PriLOSEC) 20 mg capsule Take 1 capsule (20 mg total) by mouth in the morning. 0 Active Phl-Sennosides (1 source) Start: 09-18-2021 Phl-Sennosides Refills(s) 0 Start Date: 09/18/21 Status: Ordered polyethylene glycol 3350 03616 mg powder for oral solution (3 sources) Osmotic Laxative polyethylene glycol (GLYCOLAX) 17 gram/dose powder Take 17 g by mouth daily as needed. 0 Active pregabalin 50 mg oral capsule (3 sources) Start: 10-02-2022 take 1 capsule by mouth every eight hours pregabalin (LYRICA) 50 mg capsule Take 1 capsule (50 mg total) by mouth every 8 (eight) hours. 0 10/02/2022 Active simvastatin 80 mg oral tablet (4 sources) HMG-CoA Reductase Inhibitor Start: 02-21-2019 take 80 mg by mouth once daily at bedtime simvastatin 80 mg, Oral, Once a day (at bedtime) Start Date: 02/21/19 Status: Ordered take 1 tablet by mouth once nahid y simvastatin (ZOCOR) 40 mg tablet Take 1 tablet (40 mg total) by mouth nightly. 0 Active traMADol (1 source) Opioid Agonist Start: 09-18-2021 tramadol Oral, Refills(s) 0 Start Date: 09/18/21 Status: Ordered Problems Active Problems Problem Classification Problem Date Documented Date Episodic/Chronic Cancer of prostate (2 sources) Personal history of malignant neoplasm of prostate; Translations: [History of malignant neoplasm of prostate] Onset: 09-18-2021 Episodic Conduction disorders (3 sources) Intraventricular conduction defect; Translations: [Nonspecific intraventricular block] Onset: 05-06-2023 05-06-2023 Chronic Coronary atherosclerosis and other heart disease (5 sources) Atherosclerotic heart disease of [place] coronary artery without angina pectoris; Translations: [Coronary arteriosclerosis] Onset: 05-13-2023 06-02-2023 Chronic Disorders of lipid metabolism (4 sources) Hyperlipidemia; Translations: [Other hyperlipidemia] Onset: 05-06-2023 02-21-2019 Chronic Esophageal disorders (1 source) Gastroesophageal reflux disease 02-21-2019 Chronic Essential hypertension (5 sources) Hypertensive disorder; Translations: [Essential (primary) hypertension] Onset: 05-06-2023 02-21-2019 Chronic Genitourinary symptoms and ill-defined conditions (2 sources) Microscopic hematuria; Translations: [Nocturia] 02-21-2019 Episodic Heart valve disorders (6 sources) Nonrheumatic aortic (valve) stenosis; Translations: [Aortic stenosis, non-rheumatic ] Onset: 12-23-2022 12-23-2022 Chronic Hyperplasia of prostate (2 sources) Benign prostatic hypertrophy with outflow obstruction; Translations: [Benign prostatic hyperplasia with lower urinary tract symptoms] Onset: 09-18-2021 Chronic Other connective tissue disease (5 sources) Other muscle spasm; Translations: [OTHER MUSCLE SPASM] Onset: 10-06-2022 Episodic Other connective tissue disease (1 source) Neuralgia and neuritis, unspecified; Translations: [NEURALGIA AND NEURITIS UNSPECIFIED] Onset: 10-06-2022 Episodic Other diseases of kidney and ureters (1 source) Cyst of kidney 02-21-2019 Episodic Other infections; including parasitic (1 source) History of herpes zoster 02-21-2019 Episodic Other nervous system disorders (5 sources) Other specified mononeuropathies of right lower limb; Translations: [OTH SPEC MONONEUROPATH RT LOW LIMB] Onset: 10-14-2022 Chronic Other nervous system disorders (2 sources) Other chronic pain; Translations: [OTHER CHRONIC PAIN] Onset: 07-15-2022 Chronic Other non-traumatic joint disorders (3 sources) Pain in right hip; Translations: [PAIN IN RIGHT HIP] Onset: 10-02-2022 Episodic Other screening for suspected conditions (not mental disorders or infectious disease) (11 sources) Raised prostate specific antigen; Translations: [Elevated prostate specific antigen [PSA]] Onset: 09-18-2021 Episodic Screening and history of mental health and substance abuse codes (1 source) Ex-smoker 02-21-2019 Episodic Spondylosis; intervertebral disc disorders; other back problems (9 sources) Other spondylosis with radiculopathy, lumbar region; Translations: [Lumbar spondylosis] Onset: 10-30-2021 Chronic Unclassified (1 source) Drug therapy finding 02-21-2019 Unclassified (1 source) LOW BACK PAIN, UNSPECIFIED; Translations: [LOW BACK PAIN, UNSPECIFIED] Onset: 07-15-2022 Viral infection (1 source) Herpes zoster 08-22-2019 Episodic Past or Other Problems Problem Classification Problem Date Documented Date Episodic/Chronic Mood disorders (3 sources) Mood disorders Onset: 06-02-2023 06-02-2023 Residual codes; unclassified (3 sources) Edema of foot; Translations: [Localized edema] Onset: 12-23-2022 12-23-2022 Episodic Spondylosis; intervertebral disc disorders; other back problems (10 sources) Intervertebral disc disorders with radiculopathy, lumbar region; Translations: [Spinal stenosis, lumbar region without neurogenic claudication] Onset: 11-19-2021 Episodic Results Test Name Value Interpretation Reference Range Facil ity Patient Educationon 09-19-19 Patient Education Oncology Prostate Cancer The prostate is a walnut-sized gland that is involved in the production of semen. It is located below a man's bladder, in front of the rectum. Prostate cancer is the abnormal growth of cells in the prostate gland. What are the causes? The exact cause of this condition is not known. What increases the risk? This condition is more likely to develop in men who: ? Are older than age 65. ? Are -[place]. ? Are obese. ? Have a family history of prostate cancer. ? Have a family history of breast cancer. What are the signs or symptoms? Symptoms of this condition include: ? A need to urinate often. ? Weak or interrupted flow of urine. ? Trouble starting or stopping urination. ? Inability to urinate. ? Pain or burning during urination. ? Painful ejaculation. ? Blood in urine or semen. ? Persistent pain or discomfort in the lower back, lower abdomen, hips, or upper thighs. ? Trouble getting an erection. ? Trouble emptying the bladder all the way. How is this diagnosed? This condition can be diagnosed with: ? A digital rectal exam. For this exam, a health care provider inserts a gloved finger into the rectum to feel the prostate gland. ? A blood test called a prostate-specific antigen (PSA) test. ? An imaging test called transrectal ultrasonography. ? A procedure in which a sample of tissue is taken from the prostate and examined under a microscope (prostate biopsy). Once the condition is diagnosed, tests will be done to determine how far the cancer has spread. This is called staging the cancer. Staging may involve imaging tests, such as: ? A bone scan. ? A CT scan. ? A PET scan. ? An MRI. The stages of prostate cancer are as follows: ? Stage I. At this stage, the cancer is found in the prostate only. The cancer is not visible on imaging tests and it is usually found by accident, such as during a prostate surgery. ? Stage II. At this stage, the cancer is more advanced than it is in stage I, but the cancer has not spread outside the prostate. ? Stage III. At this stage, the cancer has spread beyond the outer layer of the prostate to nearby tissues. The cancer may be found in the seminal vesicles, which are near the bladder and the prostate. ? Stage IV. At this stage, the cancer has spread other parts of the body, such as the lymph nodes, bones, bladder, rectum, liver, or lungs. How is this treated? Treatment for this condition depends on several factors, including the stage of the cancer, your age, personal preferences, and your overall health. Talk with your health care provider about treatment options that are recommended for you. Common treatments include: ? Observation for early stage prostate cancer (active surveillance). This involves having exams, blood tests, and in some cases, more biopsies. For some men, this is the only treatment needed. ? Surgery. Types of surgeries include: ? Open surgery. In this surgery, a larger incision is made to remove the prostate. ? A laparoscopic prostatectomy. This is a surgery to remove the prostate and lymph nodes through several, small incisions. It is often referred to as a minimally invasive surgery. ? A robotic prostatectomy. This is a surgery to remove the prostate and lymph nodes with the help of a robotic arm that is controlled by a computer. ? Orchiectomy. This is a surgery to remove the testicles. ? Cryosurgery. This is a surgery to freeze and destroy cancer cells. ? Radiation treatment. Types of radiation treatment include: ? External beam radiation. This type aims beams of radiation from outside the body at the prostate to destroy cancerous cells. ? Brachytherapy. This type uses radioactive needles, seeds, wires, or tubes that are implanted into the prostate gland. Like external beam radiation, brachytherapy destroys cancerous cells. An advantage is that this type of radiation limits the damage to surrounding tissue and has fewer side effects. ? High-intensity, focused ultrasonography. This treatment destroys cancer cells by delivering high-energy ultrasound waves to the cancerous cells. ? Chemotherapy medicines. This treatment kills cancer cells or stops them from multiplying. ? Hormone treatment. This treatment involves taking medicines that act on one of the male hormones (testosterone): ? By stopping your body from producing testosterone. ? By blocking testosterone from reaching cancer cells. Follow these instructions at home: ? Take enig-qqm-uegkqvn and prescription medicines only as told by your health care provider. ? Maintain a healthy diet. ? Get plenty of sleep. ? Consider joining a support group for men who have prostate cancer. Meeting with a support group may help you learn to cope with the stress of having cancer. ? Keep all follow-up visits as told by your health care provider. This is important. ? If you have to go to the hospital, notify your cancer specialis (more content not included)... [facility] Urology Office/Clinic Noteon 09-18-2021 Urology Office/Clinic Note Chief Complaint pt here for 10mo f/u with psa HPI Staff pt is here for 10mo f/u with PSA. Recent PSA done on 09/11/21 is at <0.05, previous PSA done 08/15/20 was at 0.2. previous dx: elevated psa, history of prostate cancer (S/P brachytherapy 2006), & enlarged prostate (pt is not on any BPH meds at this time.) pt was unable to give urine sample. Dysuria: _denies Incomplete bladder emptying: _denies Hematuria: _denies visibly Frequency: _denies Urgency: _denies Nocturia: _3x Stream: _steady Leaking: _denies Post void dripping: _yes a little Wearing pads/ Depends: _denies Urge incontinence: _denies Stress incontinence: _denies Incontinence without Sensory Awareness: _denies Abdominal pain: _denies Flank pain: _denies Sexual complaints: _ History of Present Illness I have reviewed and verified the staff HPI to be accurate for this encounter. Review of Systems ROS - Provider Constitutional: denies weight loss, denies hot flashes. Eyes: denies eye problems. Gastrointestinal: denies nausea, denies vomiting. Cardiovascular: denies chest pain or angina. Integumentary: no dryness Musculoskeletal: denies musculoskeletal symptoms. ENMT: denies otolaryngeal symptoms. Respiratory: no shortness of breath. Heme/Lymph: denies easy bleeding tendency, denies easy bruising tendency. Psychiatric: no confusion, no anxiety. Genitourinary: denies dysuria, denies hematuria, denies discharge, denies urinary frequency, denies urinary hesitancy, denies nocturia, denies incontinence, denies genital sores, denies decreased libido, and denies erectile dysfunction. Physical Exam Vitals & Measurements HR: 93(Peripheral) BP: 142/91 HT: 183.0 cm HT: 183 cm WT: 75.0 kg WT: 75 kg BMI: 22.4 General Appearance: alert, no distress, well nourished, well developed male. Genitourinary: normal scrotum, normal testes, normal urethra, normal epididymis, normal vas deferens/spermatic cord. Flank Pain: none. Bladder: nonpalpable. Assessment/Plan 1. History of prostate cancer (Z85.46: Personal history of malignant neoplasm of prostate) S/p Brachytherapy 2006. good cancer control >15 years out from seeds.Recent PSA done on 09/11/21 is at <0.05, previous PSA done 08/15/20 was at 0.2. Discussed with pt if he has any concerns he can contact our office but his PCP can check his PSA now. All questions/concerns were discussed. Pt. acknowledges understanding. 2. Enlarged prostate with urinary obstruction (N40.1: Benign prostatic hyperplasia with lower urinary tract symptoms) Pt. is not on any BPH meds. at this time. Overall pt states he is doing well, has a steady stream and drinks plenty of fluids. Pt denies any burning or seeing any blood in his urine. Pt states he goes to the bathroom on a regular basis. Pt understands and acknowledges. Follow-up With When Contact Information BRINA MENENDEZ, Rojas Frank, URL Only if needed [facility] [address], [place] [address]- [phone] Additional Instructions: Patient Education Prostate Cancer IKathy_, personally scribed for Dr. Kelly on 09/18/2021 09:22:59. . Documentation recorded by the cheriseibKathy barbosa, accurately reflects the services(s) I performed and decisions made by me. Problem List/Past Medical History Ongoing Anticoagulated Chronic GERD Elevated PSA Enlarged prostate with urinary obstruction Former smoker History of prostate cancer History of shingles Hyperlipidemia Hypertension Microscopic hematuria Nocturia Renal cyst Shingles outbreak Historical No qualifying data Procedure/Surgical History Cystoscopy (07/06/2012), [place] [address] brachytherapy (05/21/2006), Transrectal biopsy of prostate using ultrasound (US) guidance (03/03/2006), Cystoscopic removal of foreign body from bladder (09/12/2003), Brachytherapy of prostate using fluoroscopic guidance, Hernia repair, Tonsillectomy. Medications Allergy Relief, Not taking Arthriten aspirin 81 mg Chew Tab, 81 mg= 1 tab(s), Chewed, Daily bisacodyl 5 mg Oral EC Tab, 10 mg= 2 tab(s), Oral, Daily, PRN diclofenac sodium 50 mg Oral EC Tab, Oral, TID hydrochlorothiazide-li sinopril 12.5 mg-20 mg Tab, 1 tab(s), Oral, Daily Multi Vitamin+ omeprazole Phl-Sennosides Robaxin 500 mg Tab, Oral, QID simvastatin, 80 mg, Oral, Once a day (at bedtime), Not taking tramadol, Oral Vraylar, Oral, Daily, Unable to obtain Allergies No Known Medication Allergies Social History Tobacco Former smoker, quit more than 30 days ago Tobacco Use:., 09/18/2021 Family History Primary malignant neoplasm of prostate: Brother. Immunizations Vaccine Date Status influenza virus vaccine, inactivated 03/21/2021 Recorded SARS-CoV-2 (COVID-19) Ad26 vaccine 11/05/2020 Recorded SARS-CoV-2 (COVID-19) mRNA-1273 vaccine 10/05/2020 Recorded Lab Results Test Name Test Result Date/Time PSA, External 0.05 ng/mL 09/11/2021 13:45 EDT P (more content not included)... [facility] Comment on above: Result Comment: Elec tronically Signed By: Rojas KELLY MD\.br\Date and Time Signed: 09/18/21 09:27 EDT\.br\Electronically Co-Signed By: Kathy Hilario MA\.br\Date and Time Co-Signed: 09/18/21 09:24 EDT Lab Report[facility] 09-12-2021 Lab Reports [id number] 0CD:127 Normal [facility] Lab Reportson 02-14-2021 Lab Reports [id number] 0CD:127 Normal [facility] Lab Reports [id number] 0CD:127 Normal [facility] Comment on above: Other Comment: DARCY NGUYỄN Ambulatory Clinical Summaryo n 10-12-2020 Ambulatory Clinical Summary {[id number] [facility] Patient Educationon 10-13-19 Patient Education Benign Prostatic Hyperplasia You have an enlarged prostate. This is common in elderly males. It is called BPH. This stands for benign prostate hyperplasia. The prostate gland is located in base of the bladder. When it grows, the prostate blocks the urethra. This is the tube which drains urine from the bladder. SYMPTOMS ? Weak urine stream. ? Dribbling. ? Feeling like the bladder has not emptied completely. ? Difficulty starting urination. ? Getting up frequently at night to urinate. ? Urinating more frequently during the day. Complete urinary blockage or severe pain with urination requires immediate attention. DIAGNOSIS ? Your caregiver often has a good idea what is wrong by taking a history and doing a physical exam. ? Special x-rays may be done. TREATMENT ? For mild problems, no treatment may be necessary. ? If the problems are moderate, medications may provide relief. Some of these work by making the prostate gland smaller. The herb saw palmetto is commonly used. ? If complete blockage occurs, a Espinal catheter is usually left in place for a few days. ? Surgery is often needed for more severe problems. TURP is the prostate surgery for BPH which is done through the urethra. TURP stands for transurethral resection of the prostate. It involves cutting away chips from the prostate. It is done by removing chips so that they can come out through the penis. ? Techniques using heat, microwave and laser to remove the prostate blockage are also being used. HOME CARE INSTRUCTIONS ? Give yourself time when you urinate. ? Stay away from alcohol. ? Beverages containing caffeine such as coffee, tea and jojo can make the problems worse. ? Decongestants, antihistamines, and some prescription medicines can also make the problem worse. ? Follow up with your caregiver for further treatment as recommended. SEEK IMMEDIATE MEDICAL CARE IF: ? You develop increased pain with urination or are unable to pass your water. ? You develop severe abdominal pain, vomiting, a high fever, or fainting. ? You develop back pain or blood in your urine. MAKE SURE YOU: ? Understand these instructions. ? Will watch your condition. ? Will get help right away if you are not doing well or get worse. Document Released: 05/25/2006 Document Revised: 08/16/2012 Document Reviewed: 01/28/2008 ExitCare? Patient Information ?[address] [employer] [facility] Urology Office/Clinic Noteon 10-12-2020 Urology Office/Clinic Note Chief Complaint 1 year with PSA HPI Staff Pt is here for 1 year f/u with PSA. Previous dx of enlarged prostate with) urinary obstruction and hx of prostate cancer (Brachytherapy 2005). Current PSA done 08/15/2020 is 0.2 and previous PSA done 08/22/2019 was 0.05. Dysuria: no Incomplete bladder emptying: no Hematuria: no Frequency: no Urgency: no Nocturia: pt states that he only has to get up once in a great while Stream: moderate with no hesitancy or straining Leaking: no Post void dripping: yes Wearing pads/ Depends: no Urge incontinence: no Stress incontinence: no Incontinence without Sensory Awareness: no Abdominal pain: no Flank pain: no Sexual complaints: no History of Present Illness Reviewed UA and PSA. There have been no associated fever, chills, flank pain or blood in the urine. Pt. denies any pain/burning with urination at this time. Review of Systems PHQ Score Initial Depression Screen Score: 0 ROS - Provider Constitutional: denies weight loss, denies hot flashes. Eyes: denies eye problems. Gastrointestinal: denies nausea, denies vomiting. Cardiovascular: denies chest pain or angina. Integumentary: no dryness Musculoskeletal: denies musculoskeletal symptoms. ENMT: denies otolaryngeal symptoms. Respiratory: no shortness of breath. Heme/Lymph: denies easy bleeding tendency, denies easy bruising tendency. Psychiatric: no confusion, no anxiety. Genitourinary: denies dysuria, denies hematuria, denies discharge, denies urinary frequency, denies urinary hesitancy, denies nocturia, denies incontinence, denies genital sores, denies decreased libido, and denies erectile dysfunction. Physical Exam Vitals & Measurements HR: 88(Peripheral) RR: 16 BP: 105/74 HT: 183.0 cm HT: 183 cm WT: 75.0 kg WT: 75 kg BMI: 22.4 General Appearance: alert, no distress, well nourished, well developed male. Genitourinary: normal scrotum, normal testes, normal urethra, normal epididymis, normal vas deferens/spermatic cord. Flank Pain: none. Bladder: nonpalpable. Assessment/Plan 1. Elevated PSA (R97.20: Elevated prostate specific antigen [PSA]) Current PSA drawn on 08/15/2020 w/ a level of 0.2 vs. 0.05 in 08/2019. Will monitor levels closely. Pt. is to obtain a level in 4mos. and another in 10 months. All questions/concerns were discussed. Pt. to call the office if heencounters any issues prior. Pt. acknowledges understanding. 2. History of prostate cancer (Z85.46: Personal history of malignant neoplasm of prostate) S/p Brachytherapy 2006. 3. Enlarged prostate with urinary obstruction (N40.1: Benign prostatic hyperplasia with lower urinary tract symptoms) Pt. is not on any BPH meds. at this time and is doing well overall w/ his urination w/ no bothersome symptoms. I have reviewed the previous health record information and history for this pt. from Dr. Kelly. Follow-up With When Contact Information BRINA MENENDEZ, Rojas Frank, [address] [place] [address]- [phone] Additional Instructions: 10mos. psa Patient Education Benign Prostatic Hyperplasia IXi , personally scribed for Dr. Kelly on 10/12/2020 11:06:15. . Documentation recorded by the scribe, Xi Holden, accurately reflects the services(s) I performed and decisions made by me. Authenticated by Dr. Kelly on 10/12/2020 11:11:18. Problem List/Past Medical History Ongoing Anticoagulated Chronic GERD Enlarged prostate with urinary obstruction Former smoker History of prostate cancer History of shingles Hyperlipidemia Hypertension Microscopic hematuria Nocturia Renal cyst Shingles outbreak Historical No qualifying data Procedure/Surgical History Cystoscopy (07/06/2012), [place] brachytherapy (05/21/2006), Transrectal biopsy of prostate using ultrasound (US) guidance (03/03/2006), Cystoscopic removal of foreign body from bladder (09/12/2003), Brachytherapy of prostate using fluoroscopic guidance, Hernia repair, Tonsillectomy. Medications Allergy Relief Arthriten aspirin 81 mg Chew Tab, 81 mg= 1 tab(s), Chewed, Daily hydrochlorothiazide-li sinopril 12.5 mg-20 mg Tab, 1 tab(s), Oral, Daily Multi Vitamin+ omeprazole simvastatin, 80 mg, Oral, Once a day (at bedtime) Vraylar, Oral, Daily Allergies No Known Medication Allergies Social History Tobacco Former smoker, quit more than 30 days ago Tobacco Use:., 08/22/2019 Family History Primary malignant neoplasm of prostate: Brother. Immunizations Vaccine Date Status SARS-CoV-2 (COVID-19) mRNA-1273 vaccine 10/05/2020 Recorded Lab Results Test Name Test Result Date/Time PSA, External 0.2 ng/mL 08/15/2020 10:20 EST PSA, External 0.05 ng/mL 08/22/2019 15:12 EDT PSA, External 0.14 ng/mL 02/22/2018 09:07 EDT Ambulatory Point of Care Results Bilirubin Urine Dipstick: Negative (10/12/20 10:22:00) Blood Urine Dipstick: Negative (10/12/20 10:22: (more content not included)... Normal [facility] Comment on above: Result Comment: Elec tronically Signed By: Rojas KELLY MD\.br\Date and Time Signed: 10/12/20 11:11 EDT\.br\Electronically Co-Signed By: Xi Holden MA\.br\Date and Time Co-Signed: 10/12/20 11:07 EDT\.br\Electronically Co-Signed By: Xi Holden MA\.br\Date and Time Co-Signed: 10/12/20 11:09 EDT Vital Signs Date Time Vital Sign Value Performing Clinician Trinh coelho 06-10-2023 09:58-0500 Body height 182.9 cm Edilson Llanes MD Work Phone: [facility] 06-10-2023 09:58-0500 Body mass index (BMI) [Ratio] 24.95 kg/m2 Edilson Llanes MD Work Phone: [facility] 06-10-2023 09:58-0500 Body weight 83.46 kg Edilson Llanes MD Work Phone: [facility] 06-10-2023 09:58-0500 Diastolic blood pressure 64 mm[Hg] Edilson Llanse MD Work Phone: [facility] 06-10-2023 09:58-0500 Heart rate 94 /min Edilson Llanes MD [facility] 06-10-2023 09:58-0500 SaO2% (BldA) [Mass fraction] 94 % Edilson Llanes MD Work [facility] 06-10-2023 09:58-0500 Systolic blood pressure 122 mm[Hg] Edilson Llanes MD Work [facility] 06-02-2023 16:24-0500 Body height 182.9 cm Shmuel Furlong DO Work [facility]: [facility] 06-02-2023 16:24-0500 Body mass index (BMI) [Ratio] 25.36 kg/m2 Shmuel Furlong DO [facility] 06-02-2023 16:24-0500 Body temperature 98.1 [degF] Shmuel Furlong DO Work Phone: [facility] 06-02-2023 16:24-0500 Body weight 84.82 kg Shmuel Furlong DO Work [facility] 06-02-2023 16:24-0500 Diastolic blood pressure 60 mm[Hg] Shmuel Furlong DO [facility] 06-02-2023 16:24-0500 Heart rate 115 /min Shmuel Judge DO Work Phone: [facility] 06-02-2023 16:24-0500 SaO2% (BldA) [Mass fraction] 93 % Shmuel Samaniegong DO Work Phone: [facility] 06-02-2023 16:24-0500 Systolic blood pressure 118 mm[Hg] Shmuel Judge DO Work [facility] 09-18-2021 08:38-0400 Blood Pressure Location Rojas KELLY [facility] [place] 09-18-2021 08:38-0400 Diastolic blood pressure 91 mm[Hg] Rojas KELLY [facility] [place] 09-18-2021 08:38-0400 Heart rate 93 /min Rojas KELLY [facility] 09-18-2021 08:38-0400 Systolic blood pressure 142 mm[Hg] Rojas KELLY 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[place] coronary artery of cap[place] grande heart without angina pectoris Start: 06-09-2023 Telephone encounter Jesika ASHBY [facility] Start: 06-02-2023 End: 06-02-2023 Office outpatient visit 15 minutes Shmuel Judge DO Work [facility]: [facility] Comment on above: Coronary artery dise ase involving cap[place] coronary artery of [place] heart without angina pectoris (Primary Dx); Hypertension, unspecified type; Lumbar spondylosis Start: 05-13-2023 End: 05-13-2023 ambulatory Erika QUAN AURELIO [facility] Start: 11-14-[address] DOCTOR NUNO Facility :[facility] Start: 10-14-2022 End: 10-14-[address] DOCTOR NUNO Facility:[facility] Start: 10-10-[address] DOCTOR NUNO Facility :[facility] Start: 10-02-2022 End: 10-03-[address] SHMUEL JUDGE Facility:[facility] Start: 07-10-2022 End: 07-11-2022 ambulatory EDMUNDO GARCIA . Facility:[facility] Start: 06-05-2022 End: 06-06-[address] ESTEPHANIE DILLON . Facility:[facility] Start: 03-06-2022 End: 03-07-[address] ESTEPHANIE DILLON . Facility:[facility] Start: 12-05-2021 End: 12-06-[address] SHMUEL JUDGE Facility:[facility] Start: 11-19-2021 End: 11-19-[address] ESTEPHANIE DILLON . Facility:[facility] Start: 10-24-2021 End: 10-25-[address] SHMUEL JUDGE Facility:[facility] Start: 09-18-2021 End: 09-18-2021 Patient encounter procedure Rojas KELLY [facility] Procedures Date Procedure Procedure Detail Performing Clinician Start: 06-10-2023 Follow-up visit Follow-up EDILSON LLANES Start: 06-02-2023 Adult depression scr eening assessment Shmuel Judge DO Work Phone: Start: 07-06-2012 Cystoscopy Rojas WARNER Comment on above: 09/01/2003, 05/08/20 08, 07/06/2012 Start: 05-21-2006 Intracavitary radium application Rojas Plympton Start: 03-03-2006 Transrectal biopsy o f prostate using ultrasound guidance Rojas Plympton Start: 09-12-2003 Cystoscopic removal of foreign body from bladder Rojas Ply[place]on Comment on above: cysto, joseph rg, urete roscopy, evacuation of stone particles from bladder [place] using fluoroscopic guidance Rojas [place]on Hernia repair Rojas [place]on Tonsillectomy Rojas Plympton Plan of Treatment Date Care Activity Detail Author Start: 06-02-2024 Adult BMI Screening Adult BMI Screening [facility] Start: 06-02-2024 Depression Screening Depression Screening [facility] Start: 06-02-2024 Fall Risk Screening Fall Risk Screening [facility] Start: 06-02-2024 Tobacco Screening Tobacco Screening [facility] Start: 05-06-2024 Adult BMI Screening Adult BMI Screening [facility] Start: 05-06-2024 Tobacco Screening Tobacco Screening [facility] Start: 12-16-2023 Fall Risk Screening Fall Risk Screening [facility] Start: 06-10-2023 End: 06-10-2023 Patient encounter procedure 06/10/2023 9:45 AM EST Office Visit [facility] [address] [place] [address] Edilson Llanes MD [address] [place] [address] [facility] Start: 02-06-2023 COVID-19 Vaccine ( season) COVID-19 Vaccine ( season) [facility] Start: 02-06-2023 Influenza vaccination Influenza Vaccine [facility] Start: 1991 Administration of varicella zoster vaccine Zoster (Shingles) Vaccine (1 of 2) [facility] Start: 1960 DTaP,Tdap and Td Vaccines (1 - Tdap) DTaP,Tdap and Td Vaccines (1 - Tdap) [facility] Start: 1959 Adult BMI Follow Up Plan Adult BMI Follow Up Plan [facility] Start: 1941 Medicare Annual Wellness Visit Medicare Annual Wellness [facility] Immunizations Immunization Date Immunization Notes Care Provider Britany strauss 03-19-2022 influenza virus vaccine, unspecified formulation Shmuelina Judge DO Work Phone: [facility] 03-21-2021 influenza virus vaccine, unspecified formulation Rojas KELLY [facility] 11-05-2020 SARS-CoV-2 (COVID-19 ) Ad26 vaccine, recombinant Rojas KELLY [facility] 10-05-2020 SARS-CoV-2 (COVID-19 ) mRNA-1273 vaccine Rojas KELLY [facility] Payers Date Payer Category Payer Medicare [id number] 2020 Medicare [id number] 1959 Medicare [id number] 1940 Unknown [id number] 2.16.84 [id number] 1941 Unknown [id number] 2.16.84 [id number] 1941 Unknown [id number] 2.16.84 [id number] 1941 Unknown [id number] 2.16.84 [id number] 1941 Unknown [id number] 2.16.84 [id number] 1941 Unknown [id number] 2.16.84 [id number] 1941 Unknown [id number] 2.16.84 [id number] 1941 Unknown [id number] 2.16.84 [id number] 1941 Unknown [id number] 2.16.84 [id number] 1941 Unknown [id number] 2.16.84 [id number] 1941 Unknown [id number] 2.16.8 [id number] 1941 Unknown [id number] 2.16.84 [id number] Social History Date Type Detail Facility Start: 09-18-2021 End: 12-15-2022 Tobacco smoking status [facility] Start: 06-02-2023 End: 06-10-2023 Sex Assigned At Male [facility] End: 12-09-1971 History of tobacco use Current smoker [facility] End: 12-09-1971 History of tobacco use Cigarette Smoker [facility] Start: 12-15-2022 End: 06-10-2023 Cigarettes smoked current (pack per day) - Reported [facility] History of tobacco use Passive smoker [facility] Start: 12-15-2022 Tobacco use and exposure Smokeless tobacco [facility]-user [facility] Start: 06-02-2023 End: 06-10-2023 Alcohol intake Lifetime non-drinker (finding) [facility] Adolescent depressio n screening assessment 2 [facility] Start: 1940 Sex Assigned At Not on file P [facility] Clinical Notes 09-18-2021 to 06-10-2023 Edilson Llanes MD - 06/10/2023 9:45 AM ESTTelephone Encounter - Jesika Alanizga, [facility] - 06/09/2023 11:16 AM ESTTelephone Encounter - Jesika Contreras, [facility] - 06/09/2023 11:16 AM EST Note Date & Type Note Facility 06-10-2023 History of Presen t illness Narrative Jair Barnes Date of visit: 06/10/2023 Date of : 1940 Age: 83 y.o. 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 aspirin 81 mg Take 1 tablet (81 mg total) by mouth in the morning. diclofenac (VOLTAREN) 50 mg EC tablet Take 1 tablet (50 mg total) by mouth 2 (two) times a day as needed (pain). docusate sodium (COLACE) 100 mg capsule Take 1 capsule (100 mg total) by mouth in the morning and 1 capsule (100 mg total) before bedtime. HYDROcodone-acetaminophen (NORCO) 5-325 mg per tablet Take 1 tablet by mouth every 6 (six) hours as needed for pain. lisinopril-hydroCHLOROthiazide (PRINZIDE,ZESTORETIC) 20-12.5 mg per tablet Take 1 tablet by mouth in the morning. 1/2 tablet daily. loratadine (CLARITIN) 10 mg tablet Take 1 tablet (10 mg total) by mouth in the morning. melatonin 10 mg tablet Take by mouth. methocarbamoL (ROBAXIN) 500 mg tablet Take 1 tablet (500 mg total) by mouth every 8 (eight) hours. multivitamin capsule Take 1 capsule by mouth in the morning. nitroglycerin (NITROSTAT) 0.[address] 1 tablet (0.4 mg total) under the tongue every 5 (five) minutes as needed for chest pain. 25 tablet 1 omeprazole (PriLOSEC) 20 mg capsule Take 1 capsule (20 mg total) by mouth in the morning. polyethylene glycol (GLYCOLAX) 17 gram/dose powder Take 17 g by mouth daily as needed. pregabalin (LYRICA) 50 mg capsule Take 1 capsule (50 mg total) by mouth every 8 (eight) hours. simvastatin (ZOCOR) 40 mg tablet Take 1 tablet (40 mg total) by mouth nightly. metoprolol succinate XL (TOPROL XL) 25 mg 24 hr tablet Take 1 tablet (25 mg total) by mouth in the morning. 90 tablet 3 tzkoqgjohlcd-mpoq-wymnr acid (CERTAVITE-ANTIOXIDANT) 18-400 mg-mcg tablet Take 1 capsule by mouth. No current facility-administered medications for this visit. Chief Complaint Patient presents with Follow-up EST PT F/U CATH DONE SCHED W/PT L/S VG History of Present Illness Jair is here for follow-up. He went through catheterization. He had absolutely no angina. He is limited by his back quite a bit and uses a walker. Wants to go through a back procedure. He has no chest pain or pressure. No shortness of breath. No dizziness. He underwent catheterization was found have two-vessel CAD. Limited PCI options. The patient does not want to go through bypass surgery at this point I think he would probably rehab poorly given his back situation. His LV function was preserved and he had mild valve disease. Past Medical History: Diagnosis Date Hypertension No data recorded No data recorded No data recorded Past Surgical History: Procedure Laterality Date BACK SURGERY CARDIAC CATHETERIZATION 05/06/2023 Family History Problem Relation Age of Onset Hyperlipidemia Mother Heart disease Mother Diabetes Mother Hyperlipidemia Father Heart disease Father Diabetes Father Social History Socioeconomic History Marital status: Unknown Spouse name: Not on file Number of children: Not on file Years of education: Not on file Highest education level: Not on file Occupational History Not on file Tobacco Use Smoking status: Former Packs/day: 2.00 Years: 10.00 Additional pack years: 0.00 Total pack years: 20.00 Types: Cigarettes Quit date: 12/09/1971 Years since quittin.5 Passive exposure: Past Smokeless tobacco: Never Vaping Use Vaping Use: Never used Substance and Sexual Activity Alcohol use: Never Drug use: Never Sexual activity: Not on file Other Topics Concern Caffeine Use Yes Social History Narrative Not on file Social Determinants of Health Financial Resource Strain: Not on file Food Insecurity: No Food Insecurity (06/10/2023) Hunger Screening Food Insecurity - Worry: Never True Food Insecurity - Inability: Never True Transportation Needs: Not on file Physical Activity: Not on file Stress: Not on file Social Connections: Not on file Interpersonal Safety: Not on file Review of Systems Review of Systems Constitutional: Negative for chills, fever and malaise/fatigue. HENT: Negative for hearing loss, hoarse voice and nosebleeds. Eyes: Negative for blurred vision and double vision. Respiratory: Positive for cough. Negative for shortness of breath and wheezing. Hematologic/Lymphatic: Negative for bleeding problem. Does not bruise/bleed easily. Skin: Negative for color change, rash and suspicious lesions. Musculoskeletal: Positive for back pain. Negative for joint swelling and muscle weakness. Gastrointestinal: Negative for change in bowel habit, constipation, diarrhea and hematochezia. Genitourinary: Negative for hematuria. Neurological: Positive for dizziness and light-headedness. Negative for headaches, loss of balance and numbness. Psychiatric/Behavioral: Negative for depression. The patient is not nervous/anxious. Allergic/Immunologic: Positive for environmental allergies. CARDIOVASCULAR: Please review HPI. Physical Examination General appearance: Alert, oriented and cooperative. In no acute distress. Skin: Warm and dry to touch. Head: Normocephalic, without obvious abnormality, atraumatic. Ears, Nose, Mouth, Throat: Throat clear without erythema or exudate. Dentition intact. Eyes: Conjunctivae unremarkable, EOM intact. Neck: Neck supple, trachea midline. Respiratory: Clear to auscultation bilaterally, no use of accessory muscles. Cardiovascular: RRR with normal S1 and S2 with 2/6 RUTHIE Gastrointestinal: Soft, non-tender. Bowel sounds normal. Musculoskeletal: No peripheral edema. Neurologic: Oriented to time, person and place, affect appropriate. No focal/major motor defects noted. Psychiatric: Appropriate mood, memory and judgement. VITAL SIGNS: BP 122/64 (BP Site: Left Arm, BP Postition: Sitting) Pulse 94 Ht 182.9 cm (6') Wt 83.5 kg (184 lb) SpO2 94% BMI 24.95 kg/m Orders Placed or Reconciled This Encounter Medications metoprolol succinate XL (TOPROL XL) 25 mg 24 hr tablet Sig: Take 1 tablet (25 mg total) by mouth in the morning. Dispense: 90 tablet Refill: 3 There are no discontinued medications. IMPRESSIONS/PLAN 1. Abnormal stress test 2. Nonrheumatic aortic valve stenosis 3. Coronary artery disease involving cap[place] coronary artery of [place] heart without angina pectoris Abnormal stress test/no angina with 2V significant oLAD, occluded RCA 05/2023 cath. Normal LVEF, mild 05/13/23 Plan: The patient has absolutely no symptoms and normal LV function. He is certainly could be protected by his back. That being said, there has really no data that revascularization will make any sort of perioperative risk any lower in this situation. There is a randomized trial (CARP) that has looked at this. In light of this and patient's desire to proceed with back surgery, I would consider him intermediate risk for back procedure with stable CAD at this point and no significant valve abnormalities and I think it is reasonable to proceed. If he develops symptoms down the road, we can consider him for revascularization which would likely require CABG evaluation. He may be better suited for rehab if his back is in better shape at a later point. I would start him on a beta-dane which provide some perioperative protection and just keep him on this long-term. I did tell him that if his functional capacity improves, it certainly could unmask anginal symptoms down the road. I would simply keep him on the beta-dane moving forward. Patient is in agreement and with family today who also favor patient proceeding with back intervention and reassessing for revascularization at a later point If need to stop aspirin for 5-7 days procedure, this is reasonable to do it resume afterwards. Continue beta-dane without interruption. Follow-up in a couple months or with any symptom suggestive of angina Dr. Raad Boo TODAYS ORDERS No orders of the defined types were placed in this encounter. FOLLOW UP Return in about 3 months (around 09/09/2023). PCP: Shmuel Judge DO Referring Physician: Shmuel Judge DO [address] [place] [address] documented in this encounter [facility] 06-09-2023 Miscellaneous Notes Left message for patient to remind them to bring their most current medication list with them to their appointment. documented in this encounter [facility] 06-09-2023 Telephone encounter Note Left message for patient to remind them to bring their most current medication list with them to their appointment. [facility] 06-02-2023 History of Presen t illness Narrative Subjective Patient ID: Jair Barnes is a 83 y.o. male. Jair presents for recheck of his heart. He has had several obstacles and getting his heart checked out due to his insurance. He has [employer] and [facility] does not take [employer]. He had his heart catheterization done at [facility] in [place] through the [facility] system. He has a follow-up appointment June 10 with a [employer] leather production worker since he will be on [place] and they take [place]. He has no new problems to report. He and his daughter do not really know what is going on with his heart except that they will be talking with a leather production worker next week about it. They have not seen a Cardiothoracic surgeon as of yet. Looks like his heart catheterization showed significant disease in the LAD and no stent was placed. They did recommend medical management and consult with Cardiothoracic surgery. He is looking to get his heart problem corrected so he can have back surgery so he can become more independent. Right now he needs to ambulate with a walker and would like to get rid of that and ambulate without 1 if possible. He does not have any symptoms of angina such as a shortness a breath with exertion, pressure or tightness. He does get occasional sharp pains that he attributes to gas. The following portions of the patient's history were reviewed and updated as appropriate: allergies, current medications, past family history, past medical history, past social history, past surgical history, problem list, and medication reconciliation was completed including current medication and post discharge medication. Review of Systems Constitutional: Negative. Respiratory: Negative. Cardiovascular: Positive for leg swelling. Gastrointestinal: Negative. Genitourinary: Negative. Musculoskeletal: Positive for back pain and gait problem. Skin: Negative. Psychiatric/Behavioral: Negative. Objective Physical Exam Vitals reviewed. Exam conducted with a electrical and instrument engineer present (Daughter). HENT: Head: Normocephalic. Eyes: General: No scleral icterus. Extraocular Movements: Extraocular movements intact. Conjunctiva/sclera: Conjunctivae normal. Cardiovascular: Rate and Rhythm: Normal rate and regular rhythm. Pulses: Normal pulses. Heart sounds: Murmur heard. Pulmonary: Effort: Pulmonary effort is normal. No respiratory distress. Breath sounds: Normal breath sounds. No wheezing, rhonchi or rales. Musculoskeletal: Cervical back: Neck supple. Right lower le+ Pitting Edema present. Left lower le+ Pitting Edema present. Skin: General: Skin is warm. Neurological: General: No focal deficit present. Mental Status: He is oriented to person, place, and time. Psychiatric: Attention and Perception: Attention normal. Mood and Affect: Mood and affect normal. Speech: Speech normal. Behavior: Behavior normal. Behavior is cooperative. Thought Content: Thought content normal. Judgment: Judgment normal. Assessment/Plan Jair was seen today for follow-up. Diagnoses and all orders for this visit: Coronary artery disease involving [place] coronary artery of cap[place] grande heart without angina pectoris Reviewed cardiac catheterization report. Severe LAD disease in ostial and mid coronary artery. They recommended medical therapy and a Cardiothoracic surgery consultation. He would like to evaluate further and pursue bypass surgery if that is what is needed for him to get back surgery. I did give him nitroglycerin to have on hand in case he gets angina. Symptoms of angina discussed. The sharp pain that he gets does not sound like angina. Hypertension, unspecified type Blood pressure at goal. Continue current regimen. Lumbar spondylosis Need to evaluate his cardiac problem further before addressing his back problems Other orders - nitroglycerin (NITROSTAT) 0.4 MG SL tablet; Place 1 tablet (0.4 mg total) under the tongue every 5 (five) minutes as needed for chest pain. documented in this encounter [facility] 10-02-2022 Note CONSULTATION CONSULTATION DATE: 10/02/2022 TO: Lizet Coleman D.O. - [facility] CHIEF COMPLAINT: Includes right sided hip pain. HISTORY: He reports the pain as being 5-7/10 pain, sharp in character with a burning component over her right hip and buttock area, increased with activities such as standing, walking and performing transitioning maneuvers. He feels most comfortable in the semi-recumbent position. Patient also reports sensitivity to even light touch over the right hip and gluteal area. Denies any change in bowel and bladder habits or new sensorimotor changes in the lower extremities. EXAM: Notable for patient having no clinical radiculopathy or myelopathy involving the lower extremities. On today's visit, patient did have dysesthesia and hyperesthesia overlying the distribution of the lateral cutaneous branch of the iliohypogastric nerve on the right side with associated myofascial dysfunction of the right gluteus medius, as well as the lumbar paravertebral muscles on the right side. 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 RECOMMENDATIONS: I have recommended he increase Robaxin to 500 mg t.i.d., start aquatic therapy, and to proceed with diagnostic injection of the lateral cutaneous branch of the iliohypogastric nerve on the right side. As part of providing excellent, safe, comprehensive care, the following was completed at our patient's visit: 1. A medication reconciliation and review to ensure accurate knowledge of current/active medications, including asking our patients to inform us about any [id number] medications or herbal remedies/nutritional supplements/alternative remedies. 2. A review to specifically ensure our patients have had annual screening for: elevated body mass index (BMI, see intake chart for exact total), tobacco use, screening for depression, and screening for unhealthy alcohol use. When screening is concerning, patients are provided with education and the specific recommendation to discuss the concerning health issue and treatment options with their primary care provider. [facility] 07-10-2022 Note CONSULTATION CONSULTATION DATE: HISTORY OF PRESENT ILLNESS: This is a pleasant, 82-year-old gentleman, accompanied by his daughter, who asked for this appointment today, due to increased pain. The gentleman lives in a skilled facility and is usually very social, eating in the cafeteria and participating in group exercises. According to the daughter and the patient, the patient has been spending more time in bed and having increased pain. He has been eating more meals in his room. He does have significant spinal canal stenosis, as well as lumbar spondylosis. The last procedure he had was in November of 2021, which was lumbar epidural steroid injection. Approximately a year ago, he had radiofrequency ablations of his lower lumbar spine. Medications include tramadol 50 mg t.i.d., diclofenac 50 mg b.i.d., Lyrica 100 mg b.i.d. and Robaxin. The patient states prolonged walking, sitting, transitioning positions increase his pain. He has episodic sharp pain that does radiate to bilateral lower extremities. Patient's REVIEW OF SYSTEMS / PAST MEDICAL HISTORY / ALLERGIES and IMAGES have been reviewed and noted on the chart. PHYSICAL EXAM: VITAL SIGNS: Blood pressure 127/74, heart rate is 59. Temperature is 97.5. He is 5'9 , weighs 77 kg. GENERAL IMPRESSION: Pleasant, appropriate, in no acute distress. FOCUSED EXAM - BACK: Range of motion is guarded in lateral rotation and flexion/extension. Paravertebral muscles are taut bilaterally. Minimal spinal axial pain upon direct compression, but fullness palpated at the facets indicative of facet arthropathy, lumbar spondylosis. Krish's point mildly tender bilaterally with slight radiation to the hips. FABERs and compression tests are positive. MUSCULOSKELETAL: Motor is 3-4/5 bilaterally. Patient does walk assisted with a walker. Diffuse muscle atrophy noted to bilateral lower extremities. Anterior tibialis weak bilaterally. Extensors are intact. NEUROLOGICAL: Diffuse polyneuropathy bilateral lower extremities. Blunted patellar and Achilles reflexes bilaterally. Patient is cognitively intact. DIAGNOSIS: Lumbar spinal canal stenosis, lumbar degenerative disc disease, lumbar radiculopathy and chronic lower back pain. PLAN: We will discontinue the tramadol and start him on [place] 5/325 b.i.d. He is able to take two Extra Strength Tylenol as needed q. 6-8 hours p.r.n. The patient and daughter did inquire about repeating radiofrequency ablations, but it is too early at this time to do that. I feel his pain is inflammatory in nature, and therefore will be placed on a course of oral prednisone. Patient and daughter are in agreement with this plan, and he will be brought back to the clinic in three months' time for re-evaluation, or sooner if needed. [facility] 06-05-2022 Note CONSULTATION CONSULTATION DATE: 06/05/2022 HISTORY OF PRESENT ILLNESS: This is an 82-year-old gentleman who is accompanied by his daughter to the clinic for a three month follow up for his chronic lower back pain. The patient has known pathology of lumbar spinal canal stenosis, radiculitis and degenerative disc disease. He does live in assisted living and is cognitively intact. His last procedure was lumbar epidural steroid injection in November of 2021. He did not have significant relief with that. Medications include Lyrica 50 mg t.i.d, tramadol 50 mg t.i.d., Robaxin 500 mg b.i.d. and diclofenac 50 mg b.i.d. The patient feels his medications are working well and overall is comfortable. He does participate in exercise class four days a week and does daily walking in the halls with a walker. At his last appointment, I recommended two Boost supplements a day, which he has been doing. He has had a nice 16 pound weight gain. He presents today with good color, good spirits and more comfortable. Patient's REVIEW OF SYSTEMS / PAST MEDICAL HISTORY / ALLERGIES and IMAGES have been reviewed and noted in the chart. PHYSICAL EXAM: VITAL SIGNS: Blood pressure is 126/69. Heart rate is 94. Temperature is 98. He is 5'9 , weighs 77 kg. GENERAL APPEARANCE: Pleasant, appropriate, in no acute distress. FOCUSED EXAM - BACK: Range of motion is guarded in lateral rotation and flexion/extension. Paravertebral muscles are non-spasmodic. Mild spinal axial pain upon compression along the L4-L5 facets bilaterally. Pain does radiate below the knee to the right ankle. MUSCULOSKELETAL: Motor is 3/5 to the left and 4/5 to the right. Patient has improved muscle tone to bilateral hamstrings and quadriceps. Right lower extremity with weakness to anterior tibialis and extensor digitorum longus. NEUROLOGICAL: Patient is cognitively intact with diffuse polyneuropathy to bilateral arms and hands. DIAGNOSIS: Lumbar spinal canal stenosis, lumbar radiculitis, lumbar degenerative disc disease. PLAN: Overall, the patient is doing well. He is participating in social functions and activity functions at the skilled facility. I do recommend he increase his walking to t.i.d., between 50 and 75 feet, in addition to his exercise classes. No medication changes today. We will see him in four months' time, unless otherwise indicated. [facility] 03-06-2022 Note CONSULTATION CONSULTATION DATE: 03/08/2022 HISTORY OF PRESENT ILLNESS: This is a pleasant, 81-year-old gentleman who is a resident at a skilled facility. He presents today accompanied by his daughter for a three month follow up for his chronic lower back pain. He was last seen on 12/05/2021 which, at that appointment, he was status post lumbar epidural steroid injection in which he was afforded 40% relief only. Since patient has begun a resident of a skilled facility, he has become more social, participates in daily group exercises, stretching and therapy. He is eating properly and today presents with a healthy weight gain, good color and a good demeanor. The daughter states she feels her father is doing quite well. Current medications include diclofenac 50 mg b.i.d., Lyrica 50 mg b.i.d., tramadol 50 mg t.i.d. and Robaxin 500 mg b.i.d. He does take a multivitamin regimen at the facility. With the increased activity, he rates his pain as an 8/10. The patient describes, while sitting in a chair, he opens his legs laterally and bends forward in a flexion stretch. He states this does give him back release and he practices that daily. Activities such as twisting, prolonged standing, walking, transitioning positions and ADLs aggravate his pain. He does occasionally use a TENS unit as well as a lidocaine patch, in addition to heat, which all those measures are beneficial. He has been taking Boost and Ensure supplements at the facility. The Lyrica was added at his last appointment, and the patient feels his radicular pain has improved with that medication. Patient's REVIEW OF SYSTEMS / PAST MEDICAL HISTORY / ALLERGIES and IMAGES have been reviewed and they are noted on the chart. PHYSICAL EXAM: VITAL SIGNS: Blood pressure is 123/82. Heart rate is 107. Temperature is 97.7. He is 6' tall and weighs 73 kg. GENERAL IMPRESSION: Pleasant, appropriate, well appearing today, no acute distress. Daughter is at chair side. FOCUSED EXAM - BACK: Range of motion is functional but slightly guarded in lateral rotation and flexion/extension. Paravertebral muscles are taut with loss of lordosis to his back. Mild reproduction of spinal axial pain upon compression of the L5-S1 facets bilaterally, right greater than left. Krish's point is non-tender with negative FABERs and compression test. MUSCULOSKELETAL: Diffuse muscle atrophy noted to bilateral lower extremities. Motor is 3-4/5. Patient does use a wheeled walker to ambulate. Weakness noted to bilateral anterior tibialis and extensor digitorum longus. NEUROLOGICAL: Diffuse polyneuropathy bilateral lower extremities to the feet. Blunted patellar and Achilles reflexes. DIAGNOSIS: Lumbar spinal canal stenosis, lumbar spondylosis, lumbar degenerative disc disease, lumbar radiculitis. PLAN: The patient appears to be tolerating the Lyrica quite well. We will make a small increase to 50 mg t.i.d. and to cap it at that dose and frequency to help gain improvement of his radiculitis. I highly encouraged him to participate in his daily exercises sessions as well as therapy. Boost supplements are to continue and the patient will receive a urine tox in the clinic today. We will see him in three months' time unless otherwise indicated. Patient and daughter agree with this plan of care. [facility] 12-05-2021 Note CONSULTATION CONSULTATION DATE: 12/05/2021 This is a pleasant male who is accompanied by his daughter who returns to the clinic for a follow-up of a lumbar epidural steroid injection on 11/24/2021. The patient stated it afforded him 40% relief but it has decreased his footdrop on the right. The patient has severe degenerative disk disease as well as spinal canal stenosis and has been evaluated by Dr. Voss in [place] at his [facility]. He was found to not be a surgical candidate at this time bernabe to the severity of his disease. Today he reports his pain is 8 out of 10 but is controlled with different exercises, rest and his medication regimen. He does live in a nursing facility which give him physical therapy and occupational therapy four to five times a week. The patient feels that he has gained increased muscle strength in doing that and is tolerating it well. Medication include Tramadol 50 mg t.i.d., diclofenac 50 mg b.i.d., Robaxin 500 mg b.i.d. and a multivitamin. His PCP has taken the p.r.n. off of all of his medications and they are given to him scheduled [id number]. He has consistent radicular pain down his bilateral lower extremities, right greater than left. In the past it was noted that he had decreased muscle strength and movement to that right leg. Since he has been doing through physical therapy, he has gained muscle strength bilaterally, particularly to that right lower extremity. He does use heat in the evening this does give him a fair amount of relief. REVIEW OF SYSTEMS, PAST MEDICAL HISTORY, ALLERGIES AND IMAGES: Have been reviewed and noted in the chart. PHYSICAL EXAM: VITAL SIGNS: Blood pressure 118/74, heart rate is 105, temperature is 97.7. Height is 5'9 , weighs 146.4 pounds. GENERAL APPEARANCE: Pleasant, cooperative, uncomfortable sitting in the chair. Daughter is present. FOCUSED EXAM: BACK: Range of motion is guarded in lateral rotation and flexion extension. Paravertebral muscles are taut but non-spasmodic with no trigger points identified. Krish's point mildly tender to the right with slight referral to the right hip. MUSCULOSKELETAL: Diffuse muscle atrophy noted throughout bilateral lower extremities, however, muscle tone has increased since last visit. NEUROLOGICAL: Bilateral blunted patellar reflexes, stocking glove distribution hypesthesia noted along the right lower extremity to L4-L5 and S1 dermatomes. DIAGNOSIS: Lumbar radiculopathy, lumbar spinal canal stenosis, lumbar degenerative disk disease. PLAN: We will trial Lyrica 50 mg q. day to help give him more neuropathic pain relief I did ask the daughter to either herself of the nursing facility call the clinic in four weeks' time to update on the efficacy of the Lyrica. He is to have a Boost supplement at least once a day at the nursing facility as well as continue with Voltaren gel to his bilateral shoulders. He will be brought back to the clinic in three months' time unless otherwise indicated. The patient and daughter reviewed the plan of care and all questions were answered. [facility] Signed and Approved by: EDMUNDO GARCIA . 12/12/2021 16:27:00 [facility] 10-24-2021 Note CONSULTATION CONSULTATION DATE: 10/24/2021 This is a pleasant 81-year-old male who is accompanied by his daughter for a 3-month follow-up for his chronic lower back pain. The gentleman has mild memory loss and has recently moved into an assistive living at [facility]. He does have a spinal canal stenosis with radicular pain and today he rates his pain as 8 out of 10. He does use a Rollator for assistance. In his assisted living he does physical therapy which he seems to enjoy and is helpful. He does have bilateral numbness and tingling to his legs that include all five digits. Activities aggravate his pain are standing, walking, showering, ADLs and activity. Sleeping, the use of heat, icy hot and lying flat decrease his pain. Current medications include [id number] mg b.i.d. Robaxin 500 mg b.i.d., and Tramadol 50 mg t.i.d., p.r.n. The daughter states that the Tramadol is constipating him and is asking for something different than the stool softeners that this is delivering is giving him. He denies any new motor weakness. REVIEW OF SYSTEMS, PAST MEDICAL HISTORY, ALLERGIES AND IMAGES: Have been reviewed and noted in the chart. PHYSICAL EXAM: VITAL SIGNS: Blood pressure 141/79, heart rate is 104, temperature is 98. He is 5'9 and weighs 65 kg. GENERAL APPEARANCE: Pleasant, appropriate, no acute distress, sitting in a chair. FOCUSED EXAM: BACK: Paravertebral muscles are taut but non-spasmodic. Lateral rotation and range of motion is decreased and guarded. Diffuse muscle atrophy noted throughout the body. Krish's point is tender bilaterally as is facet compression along the L4-L5 bilaterally. MUSCULOSKELETAL: Motor is intact, 3 out of 5 bilaterally. The patient uses the Rollator and walks with a slow but steady gait. NEUROLOGICAL: Second distribution hypesthesia noted along L4, L5 to the left. Blunted bilateral patellar and Achilles reflexes. DIAGNOSIS: Lumbar radiculitis, lumbar degenerative disk, lumbar spondylosis and lumbar spinal canal stenosis. PLAN: A prescription for MiraLax 17 g q. day will be given for his constipation. We will maintain his Tramadol 50 mg t.i.d., p.r.n.. The patient will be scheduled for a lumbar epidural steroid injection to address his radicular pain. The patient and daughter agree and would like to proceed. It was recommended that the patient take Boost supplements daily and vitamin regimen was discussed. The patient will follow-up in the clinic post-procedure. [facility] Signed and Approved by: EDMUNDO GACRIA . 10/28/2021 15:06:00 [facility] 09-18-2021 Hospital Discharg e instructions Patient Education 09/18/2021 09:15:19 Prostate Cancer Prostate Cancer The prostate is a walnut-sized gland that is involved in the production of semen. It is located below a man's bladder, in front of the rectum. Prostate cancer is the abnormal growth of cells in the prostate gland. What are the causes? The exact cause of this condition is not known. What increases the risk? This condition is more likely to develop in men who: Are older than age 65. Are -[place]. Are obese. Have a family history of prostate cancer. Have a family history of breast cancer. What are the signs or symptoms? Symptoms of this condition include: A need to urinate often. Weak or interrupted flow of urine. Trouble starting or stopping urination. Inability to urinate. Pain or burning during urination. Painful ejaculation. Blood in urine or semen. Persistent pain or discomfort in the lower back, lower abdomen, hips, or upper thighs. Trouble getting an erection. Trouble emptying the bladder all the way. How is this diagnosed? This condition can be diagnosed with: A digital rectal exam. For this exam, a health care provider inserts a gloved finger into the rectum to feel the prostate gland. A blood test called a prostate-specific antigen (PSA) test. An imaging test called transrectal ultrasonography. A procedure in which a sample of tissue is taken from the prostate and examined under a microscope (prostate biopsy). Once the condition is diagnosed, tests will be done to determine how far the cancer has spread. This is called staging the cancer. Staging may involve imaging tests, such as: A bone scan. A CT scan. A PET scan. An MRI. The stages of prostate cancer are as follows: Stage I. At this stage, the cancer is found in the prostate only. The cancer is not visible on imaging tests and it is usually found by accident, such as during a prostate surgery. Stage II. At this stage, the cancer is more advanced than it is in stage I, but the cancer has not spread outside the prostate. Stage III. At this stage, the cancer has spread beyond the outer layer of the prostate to nearby tissues. The cancer may be found in the seminal vesicles, which are near the bladder and the prostate. Stage IV. At this stage, the cancer has spread other parts of the body, such as the lymph nodes, bones, bladder, rectum, liver, or lungs. How is this treated? Treatment for this condition depends on several factors, including the stage of the cancer, your age, personal preferences, and your overall health. Talk with your health care provider about treatment options that are recommended for you. Common treatments include: Observation for early stage prostate cancer (active surveillance). This involves having exams, blood tests, and in some cases, more biopsies. For some men, this is the only treatment needed. Surgery. Types of surgeries include: ?Open surgery. In this surgery, a larger incision is made to remove the prostate. ?A laparoscopic prostatectomy. This is a surgery to remove the prostate and lymph nodes through several, small incisions. It is often referred to as a minimally invasive surgery. ?A robotic prostatectomy. This is a surgery to remove the prostate and lymph nodes with the help of a robotic arm that is controlled by a computer. ?Orchiectomy. This is a surgery to remove the testicles. ?Cryosurgery. This is a surgery to freeze and destroy cancer cells. Radiation treatment. Types of radiation treatment include: ?External beam radiation. This type aims beams of radiation from outside the body at the prostate to destroy cancerous cells. ?Brachytherapy. This type uses radioactive needles, seeds, wires, or tubes that are implanted into the prostate gland. Like external beam radiation, brachytherapy destroys cancerous cells. An advantage is that this type of radiation limits the damage to surrounding tissue and has fewer side effects. High-intensity, focused ultrasonography. This treatment destroys cancer cells by delivering high-energy ultrasound waves to the cancerous cells. Chemotherapy medicines. This treatment kills cancer cells or stops them from multiplying. Hormone treatment. This treatment involves taking medicines that act on one of the male hormones (testosterone): ?By stopping your body from producing testosterone. ?By blocking testosterone from reaching cancer cells. Follow these instructions at home: Take [id number] and prescription medicines only as told by your health care provider. Maintain a healthy diet. Get plenty of sleep. Consider joining a support group for men who have prostate cancer. Meeting with a support group may help you learn to cope with the stress of having cancer. Keep all follow-up visits as told by your health care provider. This is important. If you have to go to the hospital, notify your cancer specialist (oncologist). Treatment for prostate cancer may affect sexual function. Continue to have intimate moments with your partner. This may include touching, holding, hugging, and caressing. Contact a health care provider if: You have trouble urinating. You have blood in your urine. You have pain in your hips, back, or chest. Get help right away if: You have weakness or numbness in your legs. You cannot control urination or your bowel movements (incontinence). You have trouble breathing. You have sudden chest pain. You have chills or a fever. Summary The prostate is a walnut-sized gland that is involved in the production of semen. It is located below a man's bladder, in front of the rectum. Prostate cancer is the abnormal growth of cells in the prostate gland. Treatment for this condition depends on several factors, including the stage of the cancer, your age, personal preferences, and your overall health. Talk with your health care provider about treatment options that are recommended for you. Consider joining a support group for men who have prostate cancer. Meeting with a support group may help you learn to cope with the stress of having cancer. This information is not intended to replace advice given to you by your health care provider. Make sure you discuss any questions you have with your health care provider. Document Released: 05/25/2006 Document Revised: 05/07/2018 Document Reviewed: 02/02/2017 [employer] Patient Education [facility]. 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 Hypertension, unspecified type Lumbar spondylosis Lumbosacral spondylosis without myelopathy documented in this encounter [facility]* Diagnosis Abnormal stress test- Primary Other nonspecific abnormal cardiovascular system function study Nonrheumatic aortic valve stenosis Coronary artery disease involving [place] coronary artery of [place] heart without angina pectoris documented in this encounter [facility] System[facility]Not on filedocumented in this encounter [facility] [place] [facility] SystemInstructionsNot on filedocumented in this encounter [facility] [place] [facility] SystemInstructionsNot on filedocumented in this encounter [facility] Summary Purpose Family History No Family History Records FoundNo Family History Records FoundNo Family History Records FoundNo Family History Records Found Advance Directives No Advanced Directives Records FoundDocuments on File Type Date Recorded 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 Specialty Start Date End Date Shmuel Judge DO [address] [place] [address] PCP - General Family Medicine 12/15/22 Storage Brine Worker Relationship Specialty Start Date End Date Shmuel Judge DO [address], [place] [address] PCP - General Family Medicine 12/15/22 Storage Brine Worker Relationship Specialty Start Date End Date Shmuel Judge DO [address], [place] [address] PCP - General Family Medicine 12/15/22 FOR RECORDS PERTAINING TO PATIENTS WHO ARE OR HAVE BEEN ENROLLED IN A CHEMICAL DEPENDENCY/SUBSTANCEABUSE PROGRAM, SOME INFORMATION MAY BE OMITTED. This clinical summary was aggregated from multiple sources. Caution should be exercised in using it in the provision of clinical care. This summary normalizes information from multiple sources, and as a consequence, information in this document may materially change the coding, format and clinical context of patient data. In addition, data may be omitted in some cases. CLINICAL DECISIONS SHOULD BE BASED ON THE PRIMARY CLINICAL RECORDS. [facility]. provides no warranty or guarantee of the accuracy or completeness of information in this document.
--- OUTSIDE RECORDS SUMMARY | 2023-09-07 12:44 | XMS_ITS | CCD ---
Author Organization [facility] Care Team Providers Care Vice President Of Manufacturing Name Role Phone LIZET COLEMAN Primary Care Physician [phone] AGRCIA ., EDMUNDO Consulting Unavailable FURLONG, DR SHMUEL [...] by mouth in the morning. 0 Active ymzwstfwobnh-bsir-gs lic acid (CERTAVITE-ANTIOXIDA NT) 18-400 mg-mcg tablet [...] Date: 09/18/21 Status: Ordered polyethylene glycol 3350 95283 mg powder for oral solution (3 sources) [...] disease (5 sources) Atherosclerotic heart disease of [place] coronary artery without angina pectoris; Translations: [Coronary [...] Are older than age 65. ? Are -Cypriot. ? Are obese. ? Have a family [...] Follow these instructions at home: ? Take oztc-cey-orldqgv and prescription medicines only as told by [...] cancer specialis (more content not included)... Normal [facility] Urology Office/Clinic Noteon 09-18-2021 Urology Office/Clinic [...] [facility] [address] [place] [phone] Additional Instructions: Patient Education Prostate Cancer IKathy_, [...] No qualifying data Procedure/Surgical History Cystoscopy (07/06/2012), [place] brachytherapy (05/21/2006), Transrectal biopsy of prostate [...] EDT P (more content not included)... Normal [facility] Comment on above: Result Comment: Elec tronically Signed By: Rojas KELLY MD\.br\Date and Time Signed: 09/18/21 09:27 EDT\.br\Electronically Co-Signed By: Kathy Hilario MA\.br\Date and Time Co-Signed: 09/18/21 09:24 EDT Lab Reportson 09-12-2021 Lab Reports [id number] 0CD:127 Normal [facility] Lab Reportson 02-14-2021 Lab Reports [id number] 0CD:127 Normal [facility] Lab Reports [id number] 0CD:127 Normal [facility] Comment on above: Other Comment: DARCY NGUYỄN Ambulatory Clinical Summaryo n 10-12-2020 Ambulatory Clinical Summary {[id number] Normal [facility] Patient Educationon 10-13-19 Patient Education Benign [...] Document Reviewed: 01/28/2008 ExitCare? Patient Information ?2013 [employer]. [facility] Urology Office/Clinic Noteon 10-12-2020 Urology Office/Clinic [...] Information BRINA MENENDEZ, Rojas Frank, URL [address] [place] [address]- [phone] Additional Instructions: 10mos. psa Patient Education Benign [...] No qualifying data Procedure/Surgical History Cystoscopy (07/06/2012), [place] brachytherapy (05/21/2006), Transrectal biopsy of prostate [...] (10/12/20 10:22: (more content not included)... Normal [facility] Comment on above: Result Comment: Elec tronically Signed By: Rojas KELLY MD\.br\Date and Time Signed: 10/12/20 11:11 EDT\.br\Electronically Co-Signed By: Xi Holden MA\.br\Date and Time Co-Signed: 10/12/20 11:07 EDT\.br\Electronically Co-Signed By: Xi Holden MA\.br\Date and Time Co-Signed: 10/12/20 11:09 EDT Vital Signs Date Time Vital Sign Value Performing Clinician Trinh coelho 06-10-2023 09:58-0500 Body height 182.9 cm Edilson Llanes MD Work Phone: [facility] 06-10-2023 09:58-0500 Body mass index (BMI) [Ratio] 24.95 kg/m2 Edilson Llanes MD Work Phone: [facility] 06-10-2023 09:58-0500 Body weight 83.46 kg Edilson Llanes MD Work Phone: [facility] 06-10-2023 09:58-0500 Diastolic blood pressure 64 mm[Hg] Edilson Llanes MD Work Phone: [facility] 06-10-2023 09:58-0500 Heart rate 94 /min Edilson Llanes MD [facility] 06-10-2023 09:58-0500 SaO2% (BldA) [Mass fraction] 94 % Edilson Llanes MD Work Phone: [facility] 06-10-2023 09:58-0500 Systolic blood pressure 122 mm[Hg] Edilson Llanes MD Work Phone[facility] 06-02-2023 16:24-0500 Body height 182.9 cm Shmuel Furlong DO Work Phone: [facility] 06-02-2023 16:24-0500 Body mass index (BMI) [Ratio] 25.36 kg/m2 Shmuel Furlong DO [facility] Phone[facility] 06-02-2023 16:24-0500 Body temperature 98.1 [degF] Shmuel Furlong DO Work Phone: [facility] 06-02-2023 16:24-0500 Body weight 84.82 kg Shmuel Furlong DO Work Phone: [facility] 06-02-2023 16:24-0500 Diastolic blood pressure 60 mm[Hg] Shmuel Furlong DO Work Phone[facility] 06-02-2023 16:24-0500 Heart rate 115 /min Shmuel Judge DO Work Phone[facility] 06-02-2023 16:24-0500 SaO2% (BldA) [Mass fraction] 93 % Shmuel Samaniegong DO Work Phone: [facility] 06-02-2023 16:24-0500 Systolic blood pressure 118 mm[Hg] Shmuel Judge DO Work Phone: [facility] 09-18-2021 08:38-0400 Blood Pressure Location Rojas KELLY [facility] [place] 09-18-2021 08:38-0400 Diastolic blood pressure 91 mm[Hg] Rojas KELLY [facility] [place] 09-18-2021 08:38-0400 Heart rate 93 /min Rojas KELLY [facility] [place] 09-18-2021 08:38-0400 Systolic blood pressure 142 mm[Hg] Rojas KELLY [facility] [place] Encounters Encounter Date Encounter Type Care Provider Facility Start: 06-10-2023 End: 06-10-2023 ambulatory EDILSON LLANES [facility] Start: 06-10-2023 End: 06-10-2023 Office outpatient visit 25 minutes Edilson Llanes MD Work Phone: [facility] Comment on above: Abnormal stress test (Primary Dx); Nonrheumatic aortic valve stenosis; Coronary artery disease involving [place] coronary artery of [place] heart without angina pectoris Start: 06-09-2023 Telephone encounter Jesika ASHBY [facility] Start: 06-02-2023 End: 06-02-2023 Office outpatient visit 15 minutes Shmuel Judge DO [facility] Comment on above: Coronary artery dise ase involving [place] coronary artery of [place] heart without angina pectoris (Primary Dx); Hypertension, unspecified type; Lumbar spondylosis Start: 05-13-2023 End: 05-13-2023 ambulatory Erika QUAN AURELIO [facility] Start: 11-14-[address] DOCTOR NUNO [...] encounter procedure Rojas KELLY [facility] Procedures Date Procedure Procedure Detail Performing Clinician Start: 06-10-2023 Follow-up visit Follow-up EDILSON LLANES Start: 06-02-2023 Adult depression scr eening assessment Shmuel Judge DO Work Phone: Start: 07-06-2012 Cystoscopy Rojas WARNER Comment on above: 09/01/2003, 05/08/20 08, 07/06/2012 Start: 05-21-2006 Intracavitary radium application Rojas Panoratio Start: 03-03-2006 Transrectal biopsy o f prostate using ultrasound guidance Rojas Panoratio Start: 09-12-2003 Cystoscopic removal of foreign body from bladder Rojas Panoratio Comment on above: cysto, joseph rg, urete roscopy, evacuation of stone particles from bladder Brachytherapy of [place] using fluoroscopic guidance Rojas Panoratio Hernia repair Rojas Panoratio Tonsillectomy Rojas Panoratio Plan of Treatment Date Care Activity Detail Author Start: 06-02-2024 Adult BMI Screening Adult BMI Screening [facility] Start: 06-02-2024 Depression Screening Depression Screening [facility] Start: 06-02-2024 Fall Risk Screening Fall Risk Screening [facility] Start: 06-02-2024 Tobacco Screening Tobacco Screening [facility] Start: 05-06-2024 Adult BMI Screening Adult BMI Screening [facility] Start: 05-06-2024 Tobacco Screening Tobacco Screening [facility] Start: 12-16-2023 Fall Risk Screening Fall Risk Screening [facility] Start: 06-10-2023 End: 06-10-2023 Patient encounter procedure 06/10/2023 9:45 AM EST Office Visit [facility] [address] [place] [address] Edilson Llanes MD [address] [place] [address] [facility] Start: 02-06-2023 COVID-19 Vaccine ( season) COVID-19 Vaccine ( season) [facility] Start: 02-06-2023 Influenza vaccination Influenza Vaccine [facility] Start: 1991 Administration of varicella zoster vaccine Zoster (Shingles) Vaccine (1 of 2) [facility] Start: 1960 DTaP,Tdap and Td Vaccines (1 - Tdap) DTaP,Tdap and Td Vaccines (1 - Tdap) [facility] Start: 1959 Adult BMI Follow Up Plan Adult BMI Follow Up Plan [facility] Start: 1941 Medicare Annual Wellness Visit Medicare [facility] Well[facility] Immunizations Immunization Date Immunization Notes Care Provider Britany strauss 03-19-2022 influenza virus vaccine, unspecified formulation Shmuelina Judge DO Work Phone: [facility] 03-21-2021 influenza virus vaccine, unspecified formulation Rojas KELLY [facility] 11-05-2020 SARS-CoV-2 (COVID-19 ) Ad26 vaccine, recombinant Rojas KELLY [facility] 10-05-2020 SARS-CoV-2 (COVID-19 ) mRNA-1273 vaccine Rojas KELLY [facility] Payers Date Payer Category Payer Medicare [id number] 2020 Medicare [id number] 1959 Medicare [id number] 1940 Unknown [id number] 2.16.84 [id number] 1941 Unknown [id number] 2.16.84 [id number] 1941 Unknown [id number] 2.16.84 [id number] 1941 Unknown [id number] 2.16.84 [id number] 1941 Unknown [id number] 2.16.84 [id number] 1941 Unknown [id number] 2.16.84 [id number] 1941 Unknown [id number] 2.16.84 [id number] 1941 Unknown [id number] 2.16.84 [id number] 1941 Unknown [id number] 2.16.84 [id number] 1941 Unknown [id number] 2.16.84 [id number] 1941 Unknown [id number] 2.16.8 [id number] 1941 Unknown [id number] 2.16.84 [id number] Social History Date Type Detail Facility Start: 09-18-2021 End: 12-15-2022 Tobacco smoking status [facility] Start: 06-02-2023 End: 06-10-2023 [facility]igned At Male [facility] End: 12-09-1971 History of tobacco use Current smoker [facility] End: 12-09-1971 History of tobacco use Cigarette Smoker [facility] Start: 12-15-2022 End: 06-10-2023 Cigarettes smoked current (pack per day) - [facility] History of tobacco use Passive smoker [facility] Start: 12-15-2022 Tobacco use and exposure Smokeless tobacco [facility] Start: 06-02-2023 End: 06-10-2023 Alcohol intake Lifetime non-drinker (finding) [facility] Adolescent depressio n screening assessment 2 [facility] Start: 1940 Sex Assigned At Not on file P [facility] Clinical Notes 09-18-2021 to 06-10-2023 Edilson Llanes MD - 06/10/2023 9:45 AM ESTTelephone Encounter - Jesika Alanizga, [facility] - 06/09/2023 11:16 AM ESTTelephone Encounter - Jesika Contreras, [facility] - 06/09/2023 11:16 AM EST Note Date & Type Note Facility 06-10-2023 History of Presen t illness Narrative Jair Barnes Date of visit: 06/10/2023 Date of : 1940 Age: 83 y.o. Patient Active Problem List Diagnosis Lumbar spondylosis Abnormal electrocardiogram Pedal edema Nonrheumatic aortic valve stenosis IVCD (intraventricular conduction defect) Abnormal stress test Hypertension Other hyperlipidemia Coronary artery disease involving [place] coronary artery of [place] heart without angina pectoris No Known Allergies [...] mouth in the morning. 90 tablet 3 zqusxicqkoxv-tdkl-sezla acid (CERTAVITE-ANTIOXIDANT) 18-400 mg-mcg tablet Take 1 [...] valve stenosis 3. Coronary artery disease involving [place] coronary artery of [place] heart without angina pectoris Abnormal stress test/no [...] Referring Physician: Shmuel Judge DO [address] [place] [address] documented in this encounter [facility] 06-09-2023 Miscellaneous Notes Left message for patient to remind them to bring their most current medication list with them to their appointment. documented in this encounter [facility] 06-09-2023 Telephone encounter Note Left message for patient to remind them to bring their most current medication list with them to their appointment. [facility] 06-02-2023 History of Presen t illness Narrative Subjective Patient ID: Jair Barnes is a 83 y.o. male. Jair presents for recheck of his heart. He has had several obstacles and getting his heart checked out due to his insurance. He has [employer] and [facility] does not take [employer]. He had his heart catheterization done at [facility] in [place] through the [facility] system. He has a follow-up appointment June 10 with a [facility] ring sewer since [place] will be [place] and they take [place]. He has no new problems to report. He and his daughter do not really know what is going on with his heart except that they will be talking with a ring sewer next week about it. They have not [...] Exam Vitals reviewed. Exam conducted with a gravedigger present (Daughter). HENT: Head: Normocephalic. Eyes: General: [...] for this visit: Coronary artery disease involving [place] coronary artery of [place] heart without angina pectoris Reviewed cardiac catheterization [...] for chest pain. documented in this encounter [facility] 10-02-2022 Note CONSULTATION CONSULTATION DATE: 10/02/2022 TO: [...] our patients to inform us about any zqfi-dmz-joysjbb medications or herbal remedies/nutritional supplements/alternative remedies. 2. [...] options with their primary care provider. [facility] 07-10-2022 Note CONSULTATION CONSULTATION DATE: HISTORY [...] discontinue the tramadol and start him on [place] 5/325 b.i.d. He is able to take [...] for re-evaluation, or sooner if needed. [facility] 06-05-2022 Note CONSULTATION CONSULTATION DATE: 06/05/2022 [...] four months' time, unless otherwise indicated. [facility] 03-06-2022 Note CONSULTATION CONSULTATION DATE: 03/08/2022 [...] agree with this plan of care. [facility] 12-05-2021 Note CONSULTATION CONSULTATION DATE: 12/05/2021 [...] has been evaluated by Dr. Voss in [place] at [facility]. He was found [...] and they are given to him scheduled zwlalz-uxu-wkwoe. He has consistent radicular pain down his [...] of care and all questions were answered. [facility] Signed and Approved by: EDMUNDO GARCIA . 12/12/2021 16:27:00 [facility] 10-24-2021 Note CONSULTATION CONSULTATION DATE: 10/24/2021 This is a pleasant 81-year-old male who is accompanied by his daughter for a 3-month follow-up for his chronic lower back pain. The gentleman has mild memory loss and has recently moved into an assistive living at [facility]. He does have a spinal canal stenosis [...] flat decrease his pain. Current medications include Zxxqcxvftf09 mg b.i.d. Robaxin 500 mg b.i.d., and [...] patient will follow-up in the clinic post-procedure. [facility] Signed and Approved by: EDMUNDO GARCIA . 10/28/2021 15:06:00 [facility] 09-18-2021 Hospital Discharg e instructions Patient Education [...] who: Are older than age 65. Are -Cypriot. Are obese. Have a family history of [...] cells. Follow these instructions at home: Take tuut-xri-aeynkkc and prescription medicines only as told by [...] 05/25/2006 Document Revised: 05/07/2018 Document Reviewed: 02/02/2017 [employer] Patient Education [employer]. 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 Hypertension, unspecified type Lumbar spondylosis Lumbosacral spondylosis without myelopathy documented in this encounter [facility]* Diagnosis Abnormal stress test- Primary Other nonspecific abnormal cardiovascular system function study Nonrheumatic aortic valve stenosis Coronary artery disease involving [place] coronary artery of [place] heart without angina pectoris documented in this encounter [facility] System[facility]ructionsNot on filedocumented in this encounter [facility] [employer] SystemInstructionsNot on filedocumented in this encounter [facility] [employer] SystemInstructionsNot on filedocumented in this encounter [facility] Summary Purpose Family History No Family History Records FoundNo Family History Records FoundNo Family History Records FoundNo Family History Records Found Advance Directives No Advanced Directives Records FoundDocuments on File Type Date Recorded 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 DATE CREATED AUTHOR AUTHOR'S ORGANIZ ATION 06/14/2023 [facility] Reason for Visit (unrecogniz ed section and content) Reason Comments Follow-up echo Reason Comments Follow-up EST PT F/U CATH DONE SCHED W/PT L/S VG Care Teams (unrecognized sec tion and content) Vice President Of Manufacturing Relationship Specialty Start Date End Date Shmuel Judge DO [address] [place] [address] PCP - General Family Medicine 12/15/22 Vice President Of Manufacturing Relationship Specialty Start Date End Date Shmuel Judge DO [address], [place] [address] PCP - General Family Medicine 12/15/22 Vice President Of Manufacturing Relationship Specialty Start Date End Date Shmuel Judge DO [address], [place] [address] PCP - General Family Medicine 12/15/22 FOR [...] BE BASED ON THE PRIMARY CLINICAL RECORDS. [facility] [employer] [facility]. provides no warranty or guarantee of the accuracy or completeness of information in this document.
== END | disposition home or self-care (01) ==
PROVIDERS: Visit Provider Anesthesiology
DX: M48.062 Spinal stenosis, lumbar region with neurogenic claudication (principal)
CPT/HCPCS: 64483; J1100; Q9966

== ENCOUNTER 2023-09-21 08:45 | Day surgery (SDC) | payer MEDICARE, SELFPAY ==
--- OUTSIDE RECORDS SUMMARY | 2023-09-21 09:04 | XMS_ITS | CCD ---
Author Organization [facility] Care Team Providers Care Trimming Cutter Name Role Phone LIZET COLEMAN Primary Care Physician GARCIA ., EDMUNDO Consulting Unavailable FURLONG, DR [...] EDMUNDO Consulting Unavailable DILLON ., DR ESTEPHANIE aDsh Attending Unavailable DILLON ., DR ESTEPHANIE Dash [...] Referring Unavailable SHMUEL JUDGE Primary Care Unavailable Kem MENENDEZ, Cesar Lacey Attending Unavailable Medications Current Medications Medication Drug Class(es) [...] by mouth in the morning. 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 ? Are -Bulgarian. ? Are obese. ? Have a family [...] Follow these instructions at home: ? Take ysil-tru-kyblhtp and prescription medicines only as told by [...] cancer specialis (more content not included)... [facility] Urology Office/Clinic Noteon 09-18-2021 Urology Office/Clinic [...] needed [facility] [address], [place] [address]- [phone] Additional Instructions: Patient Education Prostate Cancer IKathy_, personally scribed for Dr. Kelly on 09/18/2021 09:22:59. . Documentation recorded by the scribe, Kathy Hilario, accurately reflects the services(s) I performed and decisions made by me. Problem List/Past Medical History Ongoing Anticoagulated Chronic GERD Elevated PSA Enlarged prostate with urinary obstruction Former smoker History of prostate cancer History of shingles Hyperlipidemia Hypertension Microscopic hematuria Nocturia Renal cyst Shingles outbreak Historical No qualifying data Procedure/Surgical History Cystoscopy (07/06/2012), [place] 226 brachytherapy (05/21/2006), Transrectal biopsy of prostate [...] 13:45 EDT P (more content not included)... [facility] Comment on above: Result Comment: Elec tronically Signed By: Rojas KELLY MD\.br\Date and Time Signed: 09/18/21 09:27 EDT\.br\Electronically Co-Signed By: Kathy Hilario MA\.br\Date and Time Co-Signed: 09/18/21 09:24 EDT Lab Reportson 09-12-2021 Lab Reports [id number] 0CD:127 [facility] Report[facility] 02-14-2021 Lab Reports [id number] 0CD:127 [facility] Lab Reports [id number] 0CD:127 [facility] Comment on above: Other Comment: DARCY NGUYỄN Ambulatory Clinical Summaryo n 10-12-2020 Ambulatory Clinical Summary {[id number]}CD:[id number] [facility] Patient Educationon 10-13-19 Patient Education Benign [...] Document Reviewed: 01/28/2008 ExitCare? Patient Information ?2013 [employer]. [facility] Urology Office/Clinic Noteon 10-12-2020 Urology Office/Clinic [...] Information BRINA MENENDEZ, Rojas Frank, URL [address] [place] [address]- [phone] Additional Instructions: 10mos. psa Patient Education Benign [...] No qualifying data Procedure/Surgical History Cystoscopy (07/06/2012), [place] 226 brachytherapy (05/21/2006), Transrectal biopsy of prostate [...] (10/12/20 10:22: (more content not included)... [facility] Comment on above: Result Comment: Elec tronically Signed By: Rojas KELLY MD\.br\Date and Time Signed: 10/12/20 11:11 EDT\.br\Electronically Co-Signed By: iX Holden MA.br\Date and Time Co-Signed: 10/12/20 11:07 EDT\.br\Electronically Co-Signed By: Xi Holden MA.br\Date and Time Co-Signed: 10/12/20 11:09 EDT Vital Signs Date Time Vital Sign Value Performing Clinician Trinh coelho 06-10-2023 09:58-0500 Body height 182.9 cm Edilson Llanes MD Work Phone: [employer] 06-10-2023 09:58-0500 Body mass index (BMI) [Ratio] 24.95 kg/m2 Edilson Llanes MD Work Phone: [employer] 06-10-2023 09:58-0500 Body weight 83.46 kg Edilson Llanes MD Work Phone: [employer] 06-10-2023 09:58-0500 Diastolic blood pressure 64 mm[Hg] Edilson Llanes MD Work Phone: [employer] 06-10-2023 09:58-0500 Heart rate 94 /min Edilson Llanes MD Work Phone: [employer] 06-10-2023 09:58-0500 SaO2% (BldA) [Mass fraction] 94 % Edilson Llanes MD Work Phone: [employer] 06-10-2023 09:58-0500 Systolic blood pressure 122 mm[Hg] Edilson Llanes MD Work Phone: [employer] 06-02-2023 16:24-0500 Body height 182.9 cm Shmuel Furlong DO Work Phone: [employer] 06-02-2023 16:24-0500 Body mass index (BMI) [Ratio] 25.36 kg/m2 Shmuel Furlong DO Work Phone: [employer] 06-02-2023 16:24-0500 Body temperature 98.1 [degF] Shmuel Furlong DO Work Phone: [employer] 06-02-2023 16:24-0500 Body weight 84.82 kg Shmuel Furlong DO Work Phone: [employer] 06-02-2023 16:24-0500 Diastolic blood pressure 60 mm[Hg] Shmuel Furlong DO Work Phone: [employer] 06-02-2023 16:24-0500 Heart rate 115 /min Shmuel Judge DO [facility] 06-02-2023 16:24-0500 SaO2% (BldA) [Mass fraction] 93 % Shmuel Samaniegong DO [facility] 06-02-2023 16:24-0500 Systolic blood pressure 118 mm[Hg] Shmuel Judge DO Work Phone[facility] 09-18-2021 08:38-0400 Blood Pressure Location Rojas KELLY [facility] [place] 09-18-2021 08:38-0400 Diastolic blood pressure 91 mm[Hg] Rojas KELLY [facility] [place] 09-18-2021 08:38-0400 Heart rate 93 /min Rojas KELLY [facility] [place] 09-18-2021 08:38-0400 Systolic blood pressure 142 mm[Hg] Rojas KELLY [facility] [place] Encounters Encounter Date Encounter Type Care Provider Facility Start: 09-07-2023 End: 09-08-2023 ambulatory Cesar Brownlee MD Facility:[facility] Start: 06-10-2023 End: 06-10-2023 ambulatory EDILSON LLANES [facility] Start: 06-10-2023 End: 06-10-2023 Office outpatient visit 25 minutes Edilson Llaens MD Work Phone: [facility] Comment on above: Abnormal stress test (Primary Dx); Nonrheumatic aortic valve stenosis; 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 Start: 06-09-2023 Telephone encounter Jesika ASHBY [facility] Start: 06-02-2023 End: 06-02-2023 Office outpatient visit 15 minutes Shmuel Judge DO Work Phone: [facility] Comment on above: Coronary artery dise ase involving white mountain coronary artery of white mountain heart without angina pectoris (Primary Dx); Hypertension, unspecified type; Lumbar spondylosis Start: 05-13-2023 End: 05-13-2023 [facility] Start: 11-14-[address] DOCTOR NUNO [...] encounter procedure Rojas KELLY [facility] [place] Procedures Date Procedure Procedure Detail Performing Clinician Start: 06-10-2023 Follow-up visit Follow-up EDILSON LLANES Start: 06-02-2023 Adult depression scr eening assessment Shmuel Judge DO Work Phone: Start: 07-06-2012 Cystoscopy Rojas WARNER Comment on above: 09/01/2003, 05/08/20 08, 07/06/2012 Start: 05-21-2006 Intracavitary radium application Rojas KELLY Start: 03-03-2006 Transrectal biopsy o f prostate using ultrasound guidance Rojas KELLY Start: 09-12-2003 Cystoscopic removal of foreign body from bladder Rojas KELLY Comment on above: cysto, joseph rg, urete roscopy, evacuation of stone particles from bladder Brachytherapy of [place] using fluoroscopic guidance Rojas KELLY Hernia repair Rojas KELLY Tonsillectomy Rojas KELLY Plan of Treatment Date Care Activity Detail Author Start: 06-02-2024 Adult BMI Screening Adult BMI Screening [facility] Start: 06-02-2024 Depression Screening Depression Screening [facility] Start: 06-02-2024 Fall Risk Screening Fall Risk Screening [facility] Start: 06-02-2024 Tobacco Screening Tobacco Screening [facility] Start: 05-06-2024 Adult BMI Screening Adult BMI Screening [facility] [facility] Start: 05-06-2024 Tobacco Screening Tobacco Screening [facility] Start: 12-16-2023 Fall Risk Screening Fall Risk Screening [facility] Start: 06-10-2023 End: 06-10-2023 Patient encounter procedure 06/10/2023 9:45 AM EST Office Visit [facility] [address] [place] [address] Edilson Llanes MD [address] [place] [address] [facility] Start: 02-06-2023 COVID-19 Vaccine ( season) COVID-19 Vaccine (2022-24 season) [facility] Start: 02-06-2023 Influenza vaccination [facility]ine [facility] Start: 1991 Administration of varicella zoster vaccine Zoster (Shingles) Vaccine (1 of 2) [facility] Start: 1960 DTaP,Tdap and Td Vaccines (1 - Tdap) DTaP,Tdap and Td Vaccines (1 - Tdap) [facility] Start: 1959 Adult BMI Follow Up Plan Adult BMI Follow Up Plan [facility] Start: 1941 Medicare Annual Wellness Visit Medicare Annual Wellness Visit [facility] Immunizations Immunization Date Immunization Notes Care Provider Britany strauss 03-19-2022 influenza virus vaccine, unspecified formulation Shmuelina Villegaschloe PRECIADO Work Phone: [facility] 03-21-2021 influenza virus vaccine, unspecified formulation Rojas KELLY [facility] 11-05-2020 SARS-CoV-2 (COVID-19 ) Ad26 vaccine, recombinant Rojasishan KELLY [facility] 10-05-2020 SARS-CoV-2 (COVID-19 ) mRNA-1273 vaccine Rojas KELLY [facility] Payers Date Payer Category Payer Medicare [id number] 2023 Unknown 2020 Medicare [id number] 1959 Medicare [id number] 1940 Unknown [id number] 2.16.84 [id number] 1941 Unknown [id number] 2.16.84 [id number] 1941 Unknown [id number] 2.16.84 [id number] 1941 Unknown [id number] 2.16.84 [id number] 1941 Unknown [id number] 2.16.84 [id number] 1941 Unknown [id number] 2.16.84 [id number] 1941 Unknown [id number] 2.16.84 [id number] 1941 Unknown [id number] 2.16.84 [id number] 1941 Unknown [id number] 2.16.84 [id number] 1941 Unknown [id number] 2.16.84 [id number] 1941 Unknown [id number] 2.16.8 [id number] 1941 Unknown [id number] 2.16.84 [id number] 1941 Unknown [id number] 2.16. [id number] Social History Date Type Detail Facility Start: 09-18-2021 End: 12-15-2022 Tobacco smoking status Ex-smoker (finding) [facility] Start: 06-02-2023 End: 06-10-2023 Sex Assigned At Male [facility] End: 12-09-1971 History of tobacco use Current smoker [facility] End: 12-09-1971 History of tobacco use Cigarette Smoker [facility] Start: 12-15-2022 End: 06-10-2023 Cigarettes smoked current (pack per day) - Reported 2 [facility] History of tobacco use Passive smoker [facility] Start: 12-15-2022 Tobacco use and exposure Smokeless tobacco non-user [facility] Start: 06-02-2023 End: 06-10-2023 Alcohol intake Lifetime non-drinker (finding) [facility] Adolescent depressio n screening assessment 2 [facility] Start: 1940 Sex Assigned At Not on file P [facility] Clinical Notes 09-18-2021 to 06-10-2023 Edilson Llanes MD - 06/10/2023 9:45 AM ESTTelephone Encounter - Jesika Contreras, [facility] - 06/09/2023 11:16 AM ESTTelephone Encounter - Jesika Contreras, [facility] - 06/09/2023 11:16 AM EST Note Date & Type Note Facility 06-10-2023 History of Presen t illness Narrative Jair Staley Date of visit: 06/10/2023 Date of : 1940 Age: 83 y.o. 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 90 tablet 3 pvngvmvnwhvk-cyis-qiraz acid (CERTAVITE-ANTIOXIDANT) 18-400 mg-mcg tablet Take 1 [...] valve stenosis 3. 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 documented in this encounter [facility] 06-09-2023 Telephone encounter Note Left message for patient to remind them to bring their most current medication list with them to their appointment. [facility] 06-02-2023 History of Presen t illness Narrative Subjective Patient ID: Jair Staley is a 83 y.o. male. Jair presents for recheck of his heart. He has had several obstacles and getting his heart checked out due to his insurance. He has [employer] and [facility] does not take [employer]. He had his heart catheterization done at [facility] in [place] through the [facility]. He has a follow-up appointment June 10 with a [facility] form worker since he will be [place] and they take [place]. He has no new problems to report. He and his daughter do not really know what is going on with his heart except that they will be talking with a form worker next week about it. They have [...] Exam Vitals reviewed. Exam conducted with a bull riveter present (Daughter). HENT: Head: Normocephalic. 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 documented in this encounter [facility] 10-02-2022 Note CONSULTATION CONSULTATION DATE: 10/02/2022 TO: [...] our patients to inform us about any mjtx-mey-tgerlgn medications or herbal remedies/nutritional supplements/alternative remedies. 2. [...] options with their primary care provider. [facility] 07-10-2022 Note CONSULTATION CONSULTATION DATE: HISTORY [...] discontinue the tramadol and start him on Rose 5/325 b.i.d. He is able to take [...] for re-evaluation, or sooner if needed. [facility] 06-05-2022 Note CONSULTATION CONSULTATION DATE: 06/05/2022 [...] four months' time, unless otherwise indicated. [facility] 03-06-2022 Note CONSULTATION CONSULTATION DATE: 03/08/2022 [...] agree with this plan of care. [facility] 12-05-2021 Note CONSULTATION CONSULTATION DATE: 12/05/2021 [...] has been evaluated by Dr. Voss in [place] at [facility]. He was found [...] and they are given to him scheduled fapxeu-gii-zswut. He has consistent radicular pain down his [...] of care and all questions were answered. [facility] Signed and Approved by: EDMUNDO GARCIA . 12/12/2021 16:27:00 [facility] 10-24-2021 Note CONSULTATION CONSULTATION DATE: 10/24/2021 This is a pleasant 81-year-old male who is accompanied by his daughter for a 3-month follow-up for his chronic lower back pain. The gentleman has mild memory loss and has recently moved into an assistive living at [facility]. He does have a spinal canal [...] flat decrease his pain. Current medications include Gyagckjjne68 mg b.i.d. Robaxin 500 mg b.i.d., and [...] patient will follow-up in the clinic post-procedure. [facility] Signed and Approved by: EDMUNDO GARCIA . 10/28/2021 15:06:00 [facility] 09-18-2021 Hospital Discharg e instructions Patient Education [...] who: Are older than age 65. Are -Bulgarian. Are obese. Have a family history of [...] cells. Follow these instructions at home: Take fpxn-ywl-duadlbq and prescription medicines only as told by [...] 05/25/2006 Document Revised: 05/07/2018 Document Reviewed: 02/02/2017 [employer] Patient Education 2020 [employer]. 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- Primary Hypertension, unspecified type Lumbar spondylosis Lumbosacral spondylosis without myelopathy documented in this encounter [facility]* Diagnosis Abnormal stress test- Primary Other nonspecific abnormal cardiovascular system function study Nonrheumatic aortic valve stenosis 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 documented in this encounter [facility] System[facility]ructionsNot on filedocumented in this encounter [facility] filedocumented in this 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 Advance Directive 12/15/2022 3:15 PM recor ds request 12/15/2022 Additional Source Comments (unrecognized sect ion and content) No Status Records FoundNo Status Records FoundNo Status Records FoundNo Status Records FoundNo Status Records Found INFORMATION SOURCE (unrecogn ized section and content) DATE CREATED AUTHOR 09/19/2021 [facility] DATE CREATED AUTHOR AUTHOR'S ORGANIZ ATION 10/17/2022 [facility] DATE CREATED AUTHOR AUTHOR'S ORGANIZ ATION 05/15/2023 [facility] DATE CREATED AUTHOR AUTHOR'S ORGANIZ ATION 06/14/2023 [facility] DATE CREATED AUTHOR AUTHOR'S ORGANIZ ATION 09/17/2023 [facility] Reason for Visit (unrecogniz ed section and content) Reason Comments Follow-up echo Reason Comments Follow-up EST PT F/U CATH DONE SCHED W/PT L/S VG Care Teams (unrecognized sec tion and content) Trimming Cutter Relationship Specialty Start Date End Date Shmuel Judge DO [address] [place] [address] PCP - General Family Medicine 12/15/22 Trimming Cutter Relationship Specialty Start Date End Date Shmuel Judge DO [address] [place] [address] PCP - General Family Medicine 12/15/22 Trimming Cutter Relationship Specialty Start Date End Date Shmuel Judge DO [address], [place] [address] PCP - General Family Medicine 12/15/22 FOR [...] BE BASED ON THE PRIMARY CLINICAL RECORDS. [facility]. provides no warranty or guarantee of the accuracy or completeness of information in this document.
[2023-09-21 09:43] VITALS: BP 138/83; PULSE 75; TEMP 37.1; O2SAT 96
[2023-09-21 10:21] VITALS: BP 146/77; BP 146/80; PULSE 67; PULSE 72; O2SAT 95; O2SAT 96
[2023-09-21] MEDS: TRIAMCINOLONE ACETONIDE 40 MG/ML VIAL INJ (10:21)
[2023-09-21] MEDS: LIDOCAINE HCL 2% PF 100 MG/5 ML VIAL INJ (10:21)
[2023-09-21] MEDS: BUPIVACAINE HCL 0.25% PF 25 MG/10 ML VIAL INJ (10:21)
[2023-09-21] MEDS: IOHEXOL 240 MG/ML - 10 ML VIAL INJ (10:21)
[2023-09-21] MEDS: 0.9 % SODIUM CHLORIDE 10 ML SYRINGE - SALINE FLUSH INJ (10:21)
--- NOTE | 2023-09-21 10:23 | W.PM.PROCNOT ---
Date of procedure: 09/21/23 Pre-op diagnosis: Lumbar stenosis with neurogenic claudication Post-op diagnosis: same as pre-op Procedure: Procedure: Bilateral L4-5 transforaminal epidural steroid injection Medications: Bupivacaine 0.25% 2cc, lidocaine 2% 1cc, kenalog 80mg The patient was seen and examined in the preoperative holding area.? Informed consent was obtained and placed on the chart.? Patient was brought to the medical procedure unit and placed in the prone position where a timeout was completed verifying the correct patient, procedure site, position, and planned special equipment using sterile aseptic technique.? Under direct fluoroscopic visualization a 25-gauge Quincke tipped spinal needle was advanced at level left L4-5 to the designated neural foramen where contrast dye was injected to show adequate spread.? There was no evidence of vascular or adverse uptake.? Epidural spread was appreciated.? The above-mentioned injectate was then placed in a 1.5 mL aliquot preceded by negative aspiration.? The needle was removed. The same procedure, at the same level, was completed on the opposite side. ? Patient was taken to the postprocedural recovery area and monitored for an appropriate length of time before found suitable for discharge in the accompaniment of a responsible adult. Anesthesia: Local Surgeon: Cesar Brownlee Pathology: none sent Condition: stable Disposition: no change
--- NOTE | 2023-09-21 10:33 | PC.NURSE ---
Upon standing pt reports weakness and numbness to leg. Pt unable to stand without assistance. Pt placed in wheelchair with 2 assist for observation.
--- NOTE | 2023-09-21 10:54 | PC.NURSE ---
Pt assisted with standing and able to take multiple steps. Pts ability to stand and ambulate improved from previous. Pt taken to car in wheelchair and discharged with daughter.
== END 2023-09-21 10:55 | disposition home or self-care (01) ==
LOC: SURGOUT 08:46
PROVIDERS: Visit Provider Anesthesiology
DX: M48.062 Spinal stenosis, lumbar region with neurogenic claudication (principal)
CPT/HCPCS: 64483; Q9966

== ENCOUNTER 2023-10-01 14:05 | Outpatient (OUT) | payer MEDICARE, SELFPAY ==
--- OUTSIDE RECORDS SUMMARY | 2023-10-01 14:22 | XMS_ITS | CCD ---
Author Organization [facility] Care Team Providers Care Settlement Processor Name Role Phone LIZET COLEMAN Primary Care Physician [phone] GARCIA ., EDMUNDO Consulting Unavailable FURLONG, DR [...] ., NARENDRANATH Admitting Sharon vailable LAKSHMIPATHY ., NARENDDARRIANATH Attending Sharon vailable Erika CAREY Admitting Unavailable Erika CAREY Attending Unavailable SHMUEL JUDGE Primary Care Unavailable Shmuel Judge DO Primary Care Provider EDILSON LLANES Attending Unavailable SHMUEL JUDGE Referring Unavailable SHMUEL JUDGE Primary Care Unavailable Kem MENENDEZ, Cesar Lacey Attending Unavailable Kem MENENDEZ, Cesar Lacey Attending Unavailable [...] by mouth in the morning. 0 Active tjpvdaoquqot-sbkj-tw lic acid (CERTAVITE-ANTIOXIDA NT) 18-400 mg-mcg tablet [...] Date: 09/18/21 Status: Ordered polyethylene glycol 3350 46550 mg powder for oral solution (3 sources) [...] disease (5 sources) Atherosclerotic heart disease of [place] coronary artery without angina pectoris; Translations: [Coronary [...] Are older than age 65. ? Are -Malaysian. ? Are obese. ? Have a family [...] Follow these instructions at home: ? Take rfrd-yxt-ymnvyvv and prescription medicines only as told by [...] cancer specialis (more content not included)... Normal [facility] Urology Office/Clinic Noteon 09-18-2021 Urology Office/Clinic [...] Only if needed [facility] [address] [place] [address]- [phone] Additional Instructions: Patient Education Prostate Cancer I, Kathy Hilario_, personally scribed for Dr. Kelly on 09/18/2021 [...] No qualifying data Procedure/Surgical History Cystoscopy (07/06/2012), [place] brachytherapy (05/21/2006), Transrectal biopsy of prostate [...] EDT P (more content not included)... Normal [facility] Comment on above: Result Comment: Elec tronically Signed By: Rojas KELLY MD\.br\Date and Time Signed: 09/18/21 09:27 EDT\.br\Electronically Co-Signed By: Kathy Hilario MA\.br\Date and Time Co-Signed: 09/18/21 09:24 EDT Lab Reportson 09-12-2021 Lab Reports [id number] 0CD:127 Normal [facility] Lab Reportson 02-14-2021 Lab Reports [id number] 0CD:127 Normal [facility] Lab Reports [id number] 0CD:127 Normal [facility] Comment on above: Other Comment: DARCY NGUYỄN Ambulatory Clinical Summaryo n 10-12-2020 Ambulatory Clinical Summary {[id number] Normal [facility] Patient Educationon 10-13-19 Patient Education Benign [...] Document Reviewed: 01/28/2008 ExitCare? Patient Information ?2013 MRI Interventions. [facility] Urology Office/Clinic Noteon 10-12-2020 Urology Office/Clinic [...] Rojas Frank, URL [address] [place] [address] [place] [address]- [phone] Additional Instructions: 10mos. psa Patient Education Benign Prostatic Hyperplasia I, Xi Holden , personally scribed for Dr. Kelly on [...] No qualifying data Procedure/Surgical History Cystoscopy (07/06/2012), [place] brachytherapy (05/21/2006), Transrectal biopsy of prostate [...] (10/12/20 10:22: (more content not included)... Normal [facility] Comment on above: Result Comment: Elec tronically Signed By: Rojas KELLY MD\.br\Date and Time Signed: 10/12/20 11:11 EDT\.br\Electronically Co-Signed By: Xi Holden MA.br\Date and Time Co-Signed: 10/12/20 11:07 EDT\.br\Electronically Co-Signed By: Xi Holden MA\.br\Date and Time Co-Signed: 10/12/20 11:09 EDT Vital Signs Date Time Vital Sign Value Performing Clinician Trinh coelho 06-10-2023 09:58-0500 Body height 182.9 cm Edilson Llanes MD Work Phone: [facility] 06-10-2023 09:58-0500 Body mass index (BMI) [Ratio] 24.95 kg/m2 Edilson Llanes MD Work Phone: [facility] 06-10-2023 09:58-0500 Body weight 83.46 kg Edilson Llanes MD Work Phone: [facility] 06-10-2023 09:58-0500 Diastolic blood pressure 64 mm[Hg] Edilson Llanes MD Work Phone: [facility] 06-10-2023 09:58-0500 Heart rate 94 /min Edilson Llanes MD Work Phone: [facility] 06-10-2023 09:58-0500 SaO2% (BldA) [Mass fraction] 94 % Edilson Llanes MD Work Phone: [facility] 06-10-2023 09:58-0500 Systolic blood pressure 122 mm[Hg] Edilson Llanes MD Work Phone: [facility] 06-02-2023 16:24-0500 Body height 182.9 cm Shmuel VillegasFilmzu Work Phone: [facility] 06-02-2023 16:24-0500 Body mass index (BMI) [Ratio] 25.36 kg/m2 ShmuelShrink Nanotechnologieslong DO Work Phone: [facility] 06-02-2023 16:24-0500 Body temperature 98.1 [degF] Shmuel Villegaslong DO Work Phone: [facility] 06-02-2023 16:24-0500 Body weight 84.82 kg Shmuel Ascle[employer] DO Work Phone: [facility] 06-02-2023 16:24-0500 Diastolic blood pressure 60 mm[Hg] Shmuel Judge DO Work Phone: [facility] 06-02-2023 16:24-0500 Heart rate 115 /min Shmuel Samaniegong DO Work Phone: [facility] 06-02-2023 16:24-0500 SaO2% (BldA) [Mass fraction] 93 % Shmuel Samaniegong DO Work Phone: [facility] 06-02-2023 16:24-0500 Systolic blood pressure 118 mm[Hg] Shmuel Samaniegong DO Work Phone: [facility] 09-18-2021 08:38-0400 Blood Pressure Location Rojas KELLY [facility] [place] 09-18-2021 08:38-0400 Diastolic blood pressure 91 mm[Hg] Rojas KELLY [facility] [place] 09-18-2021 08:38-0400 Heart rate 93 /min Rojas KELLY [facility] 09-18-2021 08:38-0400 Systolic blood pressure 142 mm[Hg] Rojas KELLY [facility] Encounters Encounter Date Encounter Type Care Provider Facility Start: 09-21-2023 End: 09-22-2023 ambulatory Cesar Brownlee MD Facility: [facility] Start: 09-07-2023 End: 09-08-2023 ambulatory Cesar Brownlee MD Facility: [facility] Start: 06-10-2023 End: 06-10-2023 ambulatory EDILSON LLANES [facility] Start: 06-10-2023 End: 06-10-2023 Office outpatient visit 25 minutes Edilson Llanes MD [facility] Comment on above: Abnormal stress test (Primary Dx); Nonrheumatic aortic valve stenosis; Coronary artery disease involving [place] coronary artery of [place] heart without angina pectoris Start: 06-09-2023 [facility] Start: 06-02-2023 End: 06-02-2023 Office outpatient visit 15 minutes Shmuel Judge DO Work Phone: [facility] Comment on above: Coronary artery dise ase involving [place] coronary artery of [place] heart without angina pectoris (Primary Dx); Hypertension, unspecified type; Lumbar spondylosis Start: 05-13-2023 End: 05-13-2023 [facility] Start: 11-14-[address] DOCTOR [...] encounter procedure Rojas KELLY [facility] Procedures Date Procedure Procedure Detail Performing Clinician Start: 06-10-2023 Follow-up visit Follow-up EDILSON LLANES Start: 06-02-2023 Adult depression scr eening assessment Shmuel Judge DO Work Phone: Start: 07-06-2012 Cystoscopy Rojas WARNER Comment on above: 09/01/2003, 05/08/20 08, 07/06/2012 Start: 05-21-2006 Intracavitary radium application Rojasishan KELLY Start: 03-03-2006 Transrectal biopsy o f prostate using ultrasound guidance Rojas KELLY Start: 09-12-2003 Cystoscopic removal of foreign body from bladder Rojas KELLY [facility] Comment on above: cysto, joseph rg, urete roscopy, evacuation of stone particles from bladder Brachythe[place] using fluoroscopic guidance Rojas KELLY Hernia repair Rojas KELLY [facility] Tonsillectomy Rojas KELLY [facility] Plan of Treatment Date Care Activity Detail Author Start: 06-02-2024 Adult BMI Screening Adult BMI Screening [facility] Start: 06-02-2024 Depression Screening Depression Screening [facility] Start: 06-02-2024 Fall Risk Screening Fall Risk Screening [facility] Start: 06-02-2024 Tobacco Screening Tobacco Screening [facility] Start: 05-06-2024 Adult BMI Screening Adult BMI Screening [facility] Start: 05-06-2024 Tobacco Screening Tobacco Screening [facility] Start: 12-16-2023 Fall Risk Screening Fall Risk Screening [facility] Start: 06-10-2023 End: 06-10-2023 Patient encounter procedure 06/10/2023 9:45 AM EST Office Visit [facility] [address] [place] [id number] Edilson Llanes MD [address] [place] [address] [facility] Start: 02-06-2023 COVID-19 Vaccine ( season) COVID-19 Vaccine ( season) [facility] Start: 02-06-2023 Influenza vaccination Influenza Vaccine [facility] Start: 1991 Administration of varicella zoster vaccine Zoster (Shingles) Vaccine (1 of 2) [facility] Start: 1960 DTaP,Tdap and Td Vaccines (1 - Tdap) DTaP,Tdap and Td Vaccines (1 - Tdap) [facility] Start: 1959 Adult BMI Follow Up Plan Adult BMI Follow Up Plan [facility] Start: 1941 Medicare Annual Wellness Visit Medicare Annual Wellness Visit [facility] Immunizations Immunization Date Immunization Notes Care Provider Fa cili 03-19-2022 influenza virus vaccine, unspecified formulation Shmuel Judge Work Phone: [facility] 03-21-2021 influenza virus vaccine, unspecified formulation Rojas KELLY [facility] [place] 11-05-2020 SARS-CoV-2 (COVID-19 ) Ad26 vaccine, recombinant Rojasishan KELLY [facility] [place] 10-05-2020 SARS-CoV-2 (COVID-19 ) mRNA-1273 vaccine Rojas KELLY [facility] [place] Payers Date Payer Category Payer Medicare [id number] 2023 Unknown 2020 Medicare [id number] 1959 Medicare [id number] 1940 Unknown [id number] 2.16.84 [id number] 1941 Unknown [id number] 2.16.84 [id number] 1941 Unknown [id number] 2.16.84 0.1.658510.3.579.2.593 1941 Unknown [id number] 2.16.84 0.1.466663.3.579.2.593 1941 Unknown [id number] 2.16.84 0.1.497927.3.579.2.593 1941 Unknown [id number] 2.16.84 0.1.670006.3.579.2.593 1941 Unknown [id number] 2.16.84 0.1.443755.3.579.2.593 1941 Unknown [id number] 2.16.84 0.1.462958.3.579.2.593 1941 Unknown [id number] 2.16.84 0.1.553035.3.579.2.593 1941 Unknown [id number] 2.16.84 0.1.574376.3.579.2.593 1941 Unknown [id number] 2.16.8 40.1.939496.3.579.2.177 1941 Unknown [id number] 2.16.84 0.1.489130.3.579.2.1286 1941 Unknown [id number] 2.16. [id number] 1941 Unknown [id number] 2.16. [id number] Social History Date Type Detail Facility Start: 09-18-2021 End: 12-15-2022 Tobacco smoking status Ex-smoker (finding) [facility] Start: 06-02-2023 End: 06-10-2023 Sex Assigned At Male [facility] End: 12-09-1971 History of tobacco use Current smoker [facility] End: 12-09-1971 History of tobacco use Cigarette Smoker [facility] Start: 12-15-2022 End: 06-10-2023 Cigarettes smoked current (pack per day) - Reported 2 [facility] History of tobacco use Passive smoker [facility] Start: 12-15-2022 Tobacco use and exposure Smokeless tobacco non-user [facility] Start: 06-02-2023 End: 06-10-2023 Alcohol intake Lifetime non-drinker (finding) [facility] Adolescent depressio n screening assessment 2 [facility] Start: 1940 Sex Assigned At Not on file P [facility] Clinical Notes 09-18-2021 to 06-10-2023 Edilson Llanes MD - 06/10/2023 9:45 AM ESTTelephone Encounter - Jesika Contreras, [facility] - 06/09/2023 11:16 AM ESTTelephone Encounter - Jesika Contreras, [facility] - 06/09/2023 11:16 AM EST Note Date & Type Note Facility 06-10-2023 History of Presen t illness Narrative Jair Staley Date of visit: 06/10/2023 Date of : 1940 Age: 83 y.o. Patient Active Problem List Diagnosis Lumbar spondylosis Abnormal electrocardiogram Pedal edema Nonrheumatic aortic valve stenosis IVCD (intraventricular conduction defect) Abnormal stress test Hypertension Other hyperlipidemia Coronary artery disease involving [place] coronary artery of [place] heart without angina pectoris No Known Allergies [...] mouth in the morning. 90 tablet 3 mofkskvtbfuv-eice-xawot acid (CERTAVITE-ANTIOXIDANT) 18-400 mg-mcg tablet Take 1 [...] valve stenosis 3. Coronary artery disease involving [place] coronary artery of [place] heart without angina pectoris Abnormal stress test/no [...] Referring Physician: Shmuel Judge DO [address] [facility], [place] [address] documented in this encounter [facility] 06-09-2023 Miscellaneous Notes Left message for patient to remind them to bring their most current medication list with them to their appointment. documented in this encounter [facility] 06-09-2023 Telephone encounter Note Left message for patient to remind them to bring their most current medication list with them to their appointment. [facility] 06-02-2023 History of Presen t illness Narrative Subjective Patient ID: Jair Staley is a 83 y.o. male. Jair presents for recheck of his heart. He has had several obstacles and getting his heart checked out due to his insurance. He has [employer] and [facility] does not take [employer]. He had his heart catheterization done at [facility] in [place] through the [employer] system. He has a follow-up appointment June 10 with a [employer] corporate safety manager since he will be on [address] and they take [address]. He has no new problems to report. He and his daughter do not really know what is going on with his heart except that they will be talking with a corporate safety manager next week about it. They have not [...] Exam Vitals reviewed. Exam conducted with a terminal worker present (Daughter). HENT: Head: Normocephalic. Eyes: General: [...] for this visit: Coronary artery disease involving [place] coronary artery of [place] heart without angina pectoris Reviewed cardiac catheterization [...] for chest pain. documented in this encounter [facility] 10-02-2022 Note CONSULTATION CONSULTATION DATE: 10/02/2022 [...] our patients to inform us about any vbbh-gcg-ulkmdxi medications or herbal remedies/nutritional supplements/alternative remedies. 2. [...] their primary care provider. [facility] 07-10-2022 Note CONSULTATION CONSULTATION DATE: HISTORY OF [...] discontinue the tramadol and start him on [place] 5/325 b.i.d. He is able to take [...] or sooner if needed. [facility] 06-05-2022 Note CONSULTATION CONSULTATION DATE: 06/05/2022 HISTORY [...] time, unless otherwise indicated. [facility] 03-06-2022 Note CONSULTATION CONSULTATION DATE: 03/08/2022 HISTORY [...] this plan of care. [facility] 12-05-2021 Note CONSULTATION CONSULTATION DATE: 12/05/2021 This [...] has been evaluated by Dr. Voss in [place] at his [facility]. He was found [...] and they are given to him scheduled uirtgt-yds-uawwf. He has consistent radicular pain down his [...] of care and all questions were answered. [facility] Signed and Approved by: EDMUNDO GARCIA . 12/12/2021 16:27:00 [facility] 10-24-2021 Note CONSULTATION CONSULTATION DATE: 10/24/2021 This is a pleasant 81-year-old male who is accompanied by his daughter for a 3-month follow-up for his chronic lower back pain. The gentleman has mild memory loss and has recently moved into an assistive living at [facility]. He does have a spinal canal stenosis [...] flat decrease his pain. Current medications include Cybcwqldpu66 mg b.i.d. Robaxin 500 mg b.i.d., and [...] patient will follow-up in the clinic post-procedure. [facility] Signed and Approved by: EDMUNDO GARCIA . 10/28/2021 15:06:00 [facility] 09-18-2021 Hospital Discharg e instructions Patient Education [...] who: Are older than age 65. Are -Malaysian. Are obese. Have a family history of [...] cells. Follow these instructions at home: Take ozbj-mmh-xtoebls and prescription medicines only as told by [...] 05/25/2006 Document Revised: 05/07/2018 Document Reviewed: 02/02/2017 [employer] Patient Education 2020 [employer]. Follow Up Care 07/24/2021 13:15:16 With:BRINA MENENDEZ, Rojas Frank, URL Address: [facility] [address] [place] [phone] When: only if needed [facility] Evaluation + Plan note No data available for this section [facility] Evaluation note Diagnosis Coronary artery disease involving [place] coronary artery of [place] heart without angina pectoris- Primary Hypertension, unspecified type Lumbar spondylosis Lumbosacral spondylosis without myelopathy documented in this encounter [facility]* Diagnosis Abnormal stress test- Primary Other nonspecific abnormal cardiovascular system function study Nonrheumatic aortic valve stenosis Coronary artery disease involving [place] coronary artery of [place] heart without angina pectoris [facility] filedocumented in this [facility] System[facility]ructionsNot on filedocumented in this encounter [facility] SystemInstructionsNot on filedocumented in this encounter [facility] Summary Purpose Family History No Family History Records FoundNo Family History Records FoundNo Family History Records FoundNo Family History Records FoundNo Family History Records Found Advance Directives No Advanced Directives Records FoundDocuments on File Type Date Recorded Patient Machine Inker Expl anation Advance Directive 12/15/2022 3:15 PM recor ds request 12/15/2022 Additional Source Comments (unrecognized sect ion and content) No Status Records FoundNo Status Records FoundNo Status Records FoundNo Status Records FoundNo Status Records Found INFORMATION SOURCE (unrecogn ized section and content) DATE CREATED AUTHOR 09/19/2021 [facility] DATE CREATED AUTHOR AUTHOR'S ORGANIZ ATION 10/17/[address] [facility] DATE CREATED AUTHOR AUTHOR'S ORGANIZ ATION 05/15/2023 [facility] DATE CREATED AUTHOR AUTHOR'S ORGANIZ ATION 06/14/[address] [facility] DATE CREATED AUTHOR AUTHOR'S ORGANIZ ATION 09/30/2023 [facility] Reason for Visit (unrecogniz ed section and content) Reason Comments Follow-up echo Reason Comments Follow-up EST PT F/U CATH DONE SCHED W/PT L/S VG Care Teams (unrecognized sec tion and content) Settlement Processor Relationship Specialty Start Date End Date Shmuel Judge DO [address] [place] [address] PCP - General Family Medicine 12/15/22 Settlement Processor Relationship Specialty Start Date End Date Shmuel Judge DO [address] [place] [address] [address] PCP - General Family Medicine 12/15/22 Settlement Processor Relationship Specialty Start Date End Date Shmuel Judge DO [address], [place] [address] PCP - General Family Medicine 12/15/22 FOR [...] BE BASED ON THE PRIMARY CLINICAL RECORDS. [employer] [facility]. provides no warranty or guarantee of the accuracy or completeness of information in this document.
--- NOTE | 2023-10-01 14:23 | PM.CN ---
Consult Note: HPI Data of Consult Patient: known to practice within the last 3 years Requesting Physician: Eva Onofre NP Primary Care Provider: Non-Staff Physician, Family Provider: DMISC Consult Narrative Reason for consult: chronic back and hip pain Narrative: Jair Staley a pleasant 82 year old male presents for follow up on chronic low back and hip pain. Patient reporting increase in numbness tingling and pain radiating into groin and legs with ambulation and standing. Pt has a hx of lumbar facet arthropathy, DDD, and lumbar stenosis on prior MRI. Patient noticing improvement in pain and sleep with increase of norco to 7.5mg BID PRN moderate to severe pain. Recently underwent bilateral L3-4 TFESI and bilateral L4-5 TFESI with 50% improvement ongoing. 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 cc:: CC: Eva Onofre NP Review of Systems ROS Status of ROS 10 or more systems reviewed and unremarkable except as noted in history and below Musculoskeletal Reports: back pain PFSH PFSH Medical History Low back pain ?M54.50 - Low back pain, unspecified (ICD-10) Acid reflux ?K21.9 - Gastro-esophageal reflux disease without esophagitis (ICD-10) Prostate cancer ?C61 - Malignant neoplasm of prostate (ICD-10) Heart murmur ?R01.1 - Cardiac murmur, unspecified (ICD-10) High cholesterol ?E78.00 - Pure hypercholesterolemia, unspecified (ICD-10) Hypertension ?I10 - Essential (primary) hypertension (ICD-10) Surgical History Hx of cystoscopy ?Z98.890 - Other specified postprocedural states (ICD-10) H/O umbilical hernia repair ?Z98.890 - Other specified postprocedural states (ICD-10) ?Z87.19 - Personal history of other diseases of the digestive system (ICD-10) History of tonsillectomy and adenoidectomy ?Z90.89 - Acquired absence of other organs (ICD-10) H/O hemorrhoidectomy ?Z98.890 - Other specified postprocedural states (ICD-10) Meds Home Medications and Allergies Home Medications ?Medication ?Instructions ?Recorded ?Confirmed ?Type aspirin 81 mg capsule 81 mg PO DAILY 11/14/22 09/21/23 History diclofenac sodium 50 mg 50 mg PO BID 11/14/22 09/21/23 History tablet,delayed release lisinopril 20 1 tab PO DAILY 11/14/22 09/21/23 History mg-hydrochlorothiazide 12.5 mg tablet melatonin 3 mg tablet 3 mg PO .HS 11/14/22 09/21/23 History methocarbamol 500 mg tablet 500 mg PO TID 11/14/22 09/21/23 History xtvxcphs-vnh-avome acid 0.4 1 tab PO DAILY 11/14/22 09/21/23 History mg-lycopene 300 mcg-lutein 250 mcg tablet (Centrum Silver) omeprazole 40 mg capsule,delayed 40 mg PO DAILY 11/14/22 09/21/23 History release polyethylene glycol 3350 17 17 g PO DAILY 11/14/22 09/21/23 History gram/dose oral powder simvastatin 20 mg tablet 20 mg PO .HS 11/14/22 09/21/23 History hydrocodone 5 mg-acetaminophen 325 1 tab PO BID PRN pain #60 tabs 05/28/23 09/21/23 Rx mg tablet pregabalin 75 mg capsule (Lyrica) 75 mg PO TID 09/01/23 09/21/23 History Allergies Allergy/AdvReac Type Severity Reaction Status Date / Time No Known Drug Allergies Allergy Verified 09/07/23 10:59 Exam Constitutional Documenting provider has reviewed patient's vital signs: yes Common normals: no apparent distress, oriented x3, healthy appearing, alert and well nourished General appearance: cooperative [facility] Common normals: normocephalic, hearing grossly normal bilaterally and moist oral mucous membranes Head and scalp: normocephalic Eye Common normals: PERRL Pupil: PERRL Neck & C-Spine Common normals: full ROM General: normal visual inspection Chest Common normals: inspection of chest normal Respiratory Common normals: normal respiratory effort, no retractions and no use of accessory muscles Back & Pelvis Lumbar spine/lower back: pain with ROM and straight leg raise negative bilaterally Sacroiliac joints: SI joint(s) abnormal (right positive thigh thrust, joes smith. ) Other: strength 4/5 in BLE pain over right LCIH nerve Extremity Common normals: normal to inspection and full ROM Neuro Common normals: oriented x3, CN's II-XII intact bilaterally, moves all extremities, no focal motor deficits, no sensory deficits noted and deep tendon reflexes 2+ bilaterally Sensorium/orientation: alert Gait (neuro): assistive device used walker Motor exam: no movement abnormalities noted and strength abnormal Other: short term memory loss Psych Common normals: mental status grossly normal, thought process normal, cooperative, affect normal, speech normal and activity/motor behavior normal Speech: normal speech Thought process: normal thought process Results Additional Findings Additional findings: If on a controlled substance or opioids, I have checked an [place] report on this patient and there are no aberrancies noted in the prescribing history.??If on a controlled substance or opioid a drug screen was completed and reviewed within the last year, and if there has not been a drug screen completed we ordered one today to monitor higher risk, state monitored pain medication use. As part of providing excellent, safe, comprehensive care, the following was completed at our patient's visit: 1. A medication reconciliation and review to ensure accurate knowledge of current/active medications, including asking our patients to inform us about any beor-iot-oyhhzyt medications or herbal remedies/nutritional supplements/alternative remedies. 2. A review to specifically ensure our patients have had annual screening for screening for depression, screening for tobacco use, and screening for unhealthy alcohol use. For concerning screenings had a discussion with the patient, provided patient education, and recommended follow-up with primary care provider when appropriate. If patient noted with a risk of falling, they received education on strength, gait, and balance training to prevent future risk of falling. Assessment and Plan Assessment and Plan (1) Lumbar stenosis with neurogenic claudication: (2) Chronic prescription opiate use: Assessment and Plan: I have refilled the patient's opioid prescriptions at the above noted dose and schedule.? I feel these medications are improving the patient's quality of life and allow them to tolerate activities of daily living as well as participate in recreational activity.? The patient does not report intolerable side effects. The patient is NOT opioid naive and non-pharmacologic and non-opioid treatment has failed to significantly relieve the patient's pain and improve functionality. The patient has a diagnosis that is related to a somatic or visceral pain etiology. ? ?? I reviewed with the patient the potential risks and side effects with the use of? opioid medications including but not limited to respiratory depression,? sedation, and even . I verified the patient has access to naloxone should? these effects occur. I advised the patient to avoid the use of any other? sedation substances including alcohol, THC, and benzodiazepines while? taking opioid medications due to the risk of compounding side effects and? detrimental outcomes. I reviewed the [employer], pain treatment agreement, urine? drug screen, and opioid start talking forms. The patient was advised to let? their family know they had Naloxone in case they would need to administer? the medication.? ?? A drug screen was completed within the last year, and no aberrancies were noted regarding their use of controlled substances. The patient understands they are subject to the terms and conditions of the pain contract that they have signed. ? ?? I have checked an [place]AR[place] report on this patient today and there are no aberrancies noted in the prescribing history.? (3) Neuritis: (4) Muscle spasm: (5) Sacroiliac joint pain: (6) Lumbar spondylosis: Plan right LCIH RFA with IV sedation, previous right LCIH NB provided >80% improvement but RFA was put on hold due to cardiac issues which have since resolved continue lyrica to 75mg TID, side effects and risks vs benefits discussed continue norco to 7.5-325mg BID PRN side effects and risks vs benefits discussed, pt reports functional improvement without side effect continue HEP as tolerated f/u 1 month after RFA
== END 2023-10-01 14:06 | disposition home or self-care (01) ==
LOC: PM 14:06
PROVIDERS: Visit Provider Nurse Practitioner
DX: M48.062 Spinal stenosis, lumbar region with neurogenic claudication (principal); Z79.891 Long term (current) use of opiate analgesic; M79.2 Neuralgia and neuritis, unspecified; M62.838 Other muscle spasm; M53.3 Sacrococcygeal disorders, not elsewhere classified; M47.816 Spondylosis without myelopathy or radiculopathy, lumbar region
CPT/HCPCS: G0463

== ENCOUNTER 2023-10-06 10:01 | Day surgery (SDC) | payer MEDICARE, SELFPAY ==
--- OUTSIDE RECORDS SUMMARY | 2023-10-06 10:10 | XMS_ITS | CCD ---
Author Organization [facility] Care Team Providers Care Production Editor Name Role Phone LIZET COLEMAN Primary Care Physician [phone] GARCIA ., EDMUNDO Consulting Unavailable FURLONG, DR [...] by mouth in the morning. 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 ? Are -[place]. ? Are obese. ? Have a family [...] Follow these instructions at home: ? Take agqk-yuv-usurfxz and prescription medicines only as told by [...] cancer specialis (more content not included)... Normal [facility] Urology Office/Clinic Noteon 09-18-2021 Urology Office/Clinic [...] needed [facility] [address] [place] [phone] Additional Instructions: Patient Education Prostate Cancer I, [...] No qualifying data Procedure/Surgical History Cystoscopy (07/06/2012), [facility] brachytherapy (05/21/2006), Transrectal biopsy of prostate [...] EDT P (more content not included)... Normal [facility] Comment on above: Result Comment: Elec tronically Signed By: Rojas KELLY MD\.br\Date and Time Signed: 09/18/21 09:27 EDT\.br\Electronically Co-Signed By: Kathy Hilario MA\.br\Date and Time Co-Signed: 09/18/21 09:24 EDT Lab Reportson 09-12-2021 Lab Reports [id number] 0CD:127 Normal [facility] Lab Reportson 02-14-2021 Lab Reports [id number] 0CD:127 Normal [facility] Lab Reports [id number] 0CD:127 Normal [facility] Comment on above: Other Comment: DARCY NGUYỄN Ambulatory Clinical Summaryo n 10-12-2020 Ambulatory Clinical Summary {[id number] Normal [facility] Patient Educationon 10-13-19 Patient Education Benign [...] Document Reviewed: 01/28/2008 ExitCare? Patient Information ?2013 [employer]. [facility] Urology Office/Clinic Noteon 10-12-2020 Urology Office/Clinic [...] Frank, URL [address] [place] [address] [place] [address]- [phone] Additional Instructions: 10mos. psa Patient Education Benign [...] No qualifying data Procedure/Surgical History Cystoscopy (07/06/2012), [facility] brachytherapy (05/21/2006), Transrectal biopsy of prostate [...] (10/12/20 10:22: (more content not included)... Normal [facility] Comment on above: Result Comment: Elec tronically Signed By: Rojas KELLY MD\.br\Date and Time Signed: 10/12/20 11:11 EDT\.br\Electronically Co-Signed By: Xi Holden MA.br\Date and Time Co-Signed: 10/12/20 11:07 EDT\.br\Electronically Co-Signed By: Xi Holden MA\.br\Date and Time Co-Signed: 10/12/20 11:09 EDT Vital Signs Date Time Vital Sign Value Performing Clinician Trinh coelho 06-10-2023 09:58-0500 Body height 182.9 cm Edilson Llanes MD Work Phone: [employer] 06-10-2023 09:58-0500 Body mass index (BMI) [Ratio] 24.95 kg/m2 Edilson Llanes MD Work Phone: [employer] 06-10-2023 09:58-0500 Body weight 83.46 kg Edilson Llanes MD Work Phone: [employer] 06-10-2023 09:58-0500 Diastolic blood pressure 64 mm[Hg] Edilson Llanes MD Work Phone: [employer] 06-10-2023 09:58-0500 Heart rate 94 /min Edilson Llanes MD Work Phone: [employer] 06-10-2023 09:58-0500 SaO2% (BldA) [Mass fraction] 94 % Edilson Llanes MD Work Phone: [employer] 06-10-2023 09:58-0500 Systolic blood pressure 122 mm[Hg] Edilson Llanes MD Work Phone: [employer] 06-02-2023 16:24-0500 Body height 182.9 cm Shmuel [employer] Work Phone: [employer] 06-02-2023 16:24-0500 Body mass index (BMI) [Ratio] 25.36 kg/m2 ShmuelMyndnetlong DO Work Phone: [employer] 06-02-2023 16:24-0500 Body temperature 98.1 [degF] Shmuel Villegaslong DO Work Phone: [employer] 06-02-2023 16:24-0500 Body weight 84.82 kg Shmuel Mozesng DO Work Phone: [employer] 06-02-2023 16:24-0500 Diastolic blood pressure 60 mm[Hg] Shmuel Judge DO Work Phone: [facility] 06-02-2023 16:24-0500 Heart rate 115 /min Shmuel Samaniegong DO Work Phone: [facility] 06-02-2023 16:24-0500 SaO2% (BldA) [Mass fraction] 93 % Shmuel Samaniegong DO Work Phone: [facility] 06-02-2023 16:24-0500 Systolic blood pressure 118 mm[Hg] Shmuel Samaniegong DO Work Phone: [facility] 09-18-2021 08:38-0400 Blood Pressure Location Rojas KELLY [facility] [place] 09-18-2021 08:38-0400 Diastolic blood pressure 91 mm[Hg] Rojas KELLY [facility] [place] 09-18-2021 08:38-0400 Heart rate 93 /min Rojas KELLY [facility] [place] 09-18-2021 08:38-0400 Systolic blood pressure 142 mm[Hg] Rojas KELLY [facility] [place] Encounters Encounter Date Encounter Type Care Provider Facility Start: 09-21-2023 End: 09-22-2023 ambulatory Cesar Brownlee MD Facility: [facility] Start: 09-07-2023 End: 09-08-2023 ambulatory Cesar Brownlee MD Facility: [facility] Start: 06-10-2023 End: 06-10-2023 ambulatory EDILSON LLANES [facility] Start: 06-10-2023 End: 06-10-2023 Office outpatient visit 25 minutes Edilson Llanes MD [facility] Comment on above: Abnormal stress test (Primary Dx); Nonrheumatic aortic valve stenosis; Coronary artery disease involving [place] coronary artery of [place] heart without angina pectoris Start: 06-09-2023 [facility] Start: 06-02-2023 End: 06-02-2023 Office outpatient visit 15 minutes Shmuel Judge DO Work Phone: [facility] Comment on above: Coronary artery dise ase involving [place] coronary artery of [place] heart without angina pectoris (Primary Dx); Hypertension, unspecified type; Lumbar spondylosis Start: 05-13-2023 End: 05-13-2023 [facility] Start: 11-14-[address] DOCTOR NUNO Facility [...] encounter procedure Rojas KELLY [facility] Procedures Date Procedure Procedure Detail Performing [...] of foreign body from bladder Rojas KELLY [facility] Comment on above: cysto, joseph rg, urete roscopy, evacuation of stone particles from bladder Brachytherapy of [place] using fluoroscopic guidance Rojas KELLY Hernia repair Rojas KELLY [facility] Tonsillectomy Rojas KELLY [facility] Plan of Treatment Date Care Activity Detail Author Start: 06-02-2024 Adult BMI Screening Adult BMI Screening [facility] Start: 06-02-2024 Depression Screening Depression Screening [facility] Start: 06-02-2024 Fall Risk Screening Fall Risk Screening [facility] Start: 06-02-2024 Tobacco Screening Tobacco Screening [facility] Start: 05-06-2024 Adult BMI Screening Adult BMI Screening [facility] Start: 05-06-2024 Tobacco Screening Tobacco Screening [facility] Start: 12-16-2023 Fall Risk Screening Fall Risk Screening [facility] Start: 06-10-2023 End: 06-10-2023 Patient encounter procedure 06/10/2023 9:45 AM EST Office Visit [facility] [address] [place] [id number] Edilson Llanes MD [address] [place] [address] [facility] Start: 02-06-2023 COVID-19 Vaccine ( season) COVID-19 Vaccine ( season) [facility] Start: 02-06-2023 Influenza vaccination Influenza Vaccine [facility] Start: 1991 Administration of varicella zoster vaccine Zoster (Shingles) Vaccine (1 of 2) [facility] Start: 1960 DTaP,Tdap and Td Vaccines (1 - Tdap) DTaP,Tdap and Td Vaccines (1 - Tdap) [facility] Start: 1959 Adult BMI Follow Up Plan Adult BMI Follow Up Plan [facility] Start: 1941 Medicare Annual Wellness Visit Medicare Annual Wellness Visit [facility] Immunizations Immunization Date Immunization Notes Care Provider Fa cili 03-19-2022 influenza virus vaccine, unspecified formulation Shmuel Judge Work Phone: [facility] 03-21-2021 influenza virus vaccine, unspecified formulation Rojas KELLY [facility] [place] 11-05-2020 SARS-CoV-2 (COVID-19 ) Ad26 vaccine, recombinant Rojasishan KELLY [facility] [place] 10-05-2020 SARS-CoV-2 (COVID-19 ) mRNA-1273 vaccine Rojas KELLY [facility] [place] Payers Date Payer Category Payer Medicare [id number] 2023 Unknown 2020 Medicare [id number] 1959 Medicare [id number] 1940 Unknown [id number] 2.16.84 [id number] 1941 Unknown [id number] 2.16.84 0.1.441545.3.579.2.593 1941 Unknown [id number] 2.16.84 0.1.941392.3.579.2.593 1941 Unknown [id number] 2.16.84 0.1.378873.3.579.2.593 1941 Unknown [id number] 2.16.84 0.1.247744.3.579.2.593 1941 Unknown [id number] 2.16.84 0.1.147571.3.579.2.593 1941 Unknown [id number] 2.16.84 0.1.424491.3.579.2.593 1941 Unknown [id number] 2.16.84 0.1.777571.3.579.2.593 1941 Unknown [id number] 2.16.84 0.1.924149.3.579.2.593 1941 Unknown [id number] 2.16.84 0.1.128398.3.579.2.593 1941 Unknown [id number] 2.16.8 40.1.940886.3.579.2.177 1941 Unknown [id number] 2.16.84 0.1.093449.3.579.2.1286 1941 Unknown [id number] 2.16. [id number] 1941 Unknown [id number] 2.16. [id number] Social History Date Type Detail Facility Start: 09-18-2021 End: 12-15-2022 Tobacco smoking status Ex-smoker (finding) [facility] Start: 06-02-2023 End: 06-10-2023 Sex Assigned At Male [facility] [place] End: 12-09-1971 History of tobacco use Current smoker [facility] End: 12-09-1971 History of tobacco use Cigarette Smoker [facility] Start: 12-15-2022 End: 06-10-2023 Cigarettes smoked current (pack per day) - Reported 2 [facility] History of tobacco use Passive smoker [facility] Start: 12-15-2022 Tobacco use and exposure Smokeless tobacco non-user [facility] Start: 06-02-2023 End: 06-10-2023 Alcohol intake Lifetime non-drinker (finding) [facility] Adolescent depressio n screening assessment 2 [facility] Start: 1940 Sex Assigned At Not on file [facility] Clinical Notes 09-18-2021 to 06-10-2023 Edilson Llanes MD - 06/10/2023 9:45 AM ESTTelephone Encounter - Jesika Contreras, [facility] - 06/09/2023 11:16 AM ESTTelephone Encounter - Jesika Contreras, [facility] - 06/09/2023 11:16 AM EST Note Date & Type Note Facility 06-10-2023 History of Presen t illness Narrative Jair Staley Date of visit: 06/10/2023 Date of : 1940 Age: 83 y.o. Patient Active Problem List Diagnosis Lumbar spondylosis Abnormal electrocardiogram Pedal edema Nonrheumatic aortic valve stenosis IVCD (intraventricular conduction defect) Abnormal stress test Hypertension Other hyperlipidemia Coronary artery disease involving [place] coronary artery of [place] heart without angina pectoris No Known Allergies [...] mouth in the morning. 90 tablet 3 xwsibdxdwytc-wdku-byaue acid (CERTAVITE-ANTIOXIDANT) 18-400 mg-mcg tablet Take 1 [...] valve stenosis 3. Coronary artery disease involving [place] coronary artery of [place] heart without angina pectoris Abnormal stress test/no [...] Physician: Shmuel Judge DO [address], [place] [address] documented in this encounter [facility] 06-09-2023 Miscellaneous Notes Left message for patient to remind them to bring their most current medication list with them to their appointment. documented in this encounter [facility] 06-09-2023 Telephone encounter Note Left message for patient to remind them to bring their most current medication list with them to their appointment. [facility] 06-02-2023 History of Presen t illness Narrative Subjective Patient ID: Jair Staley is a 83 y.o. male. Jair presents for recheck of his heart. He has had several obstacles and getting his heart checked out due to his insurance. He has [employer] and [facility] does not take [employer]. He had his heart catheterization done at [facility] in [place] through the [employer] system. He has a follow-up appointment June 10 with a [employer] computer patternmaker since he will be [place] and they take [place]. He has no new problems to report. He and his daughter do not really know what is going on with his heart except that they will be talking with a computer patternmaker next week about it. They have not [...] Exam Vitals reviewed. Exam conducted with a security advisor present (Daughter). HENT: Head: Normocephalic. Eyes: General: [...] for this visit: Coronary artery disease involving [place] coronary artery of [place] heart without angina pectoris Reviewed cardiac catheterization [...] for chest pain. documented in this encounter [facility] 10-02-2022 Note CONSULTATION CONSULTATION DATE: 10/02/2022 [...] our patients to inform us about any apkq-dzn-zgjyalu medications or herbal remedies/nutritional supplements/alternative remedies. 2. [...] options with their primary care provider. [facility] 07-10-2022 Note CONSULTATION CONSULTATION DATE: HISTORY [...] discontinue the tramadol and start him on [place] 5/325 b.i.d. He is able to take [...] for re-evaluation, or sooner if needed. [facility] 06-05-2022 Note CONSULTATION CONSULTATION DATE: 06/05/2022 [...] four months' time, unless otherwise indicated. [facility] 03-06-2022 Note CONSULTATION CONSULTATION DATE: 03/08/2022 [...] agree with this plan of care. [facility] 12-05-2021 Note CONSULTATION CONSULTATION DATE: 12/05/2021 [...] has been evaluated by Dr. Voss in [place] at [facility]. He was found [...] and they are given to him scheduled qyszbh-anp-mtqxk. He has consistent radicular pain down his [...] of care and all questions were answered. [facility] Signed and Approved by: EDMUNDO GARCIA . 12/12/2021 16:27:00 [facility] 10-24-2021 Note CONSULTATION CONSULTATION DATE: 10/24/2021 This is a pleasant 81-year-old male who is accompanied by his daughter for a 3-month follow-up for his chronic lower back pain. The gentleman has mild memory loss and has recently moved into an assistive living at [facility]. He does have a spinal canal stenosis [...] flat decrease his pain. Current medications include Sogqeyhlhw19 mg b.i.d. Robaxin 500 mg b.i.d., and [...] patient will follow-up in the clinic post-procedure. [facility] Signed and Approved by: EDMUNDO GARCIA . 10/28/2021 15:06:00 [facility] 09-18-2021 Hospital Discharg e instructions Patient [...] who: Are older than age 65. Are -[place]. Are obese. Have a family history of [...] cells. Follow these instructions at home: Take oqcx-drt-heodqng and prescription medicines only as told by [...] 05/25/2006 Document Revised: 05/07/2018 Document Reviewed: 02/02/2017 [employer] Patient Education 2020 [employer]. Follow Up Care 07/24/2021 13:15:16 With:BRINA MENENDEZ, Rojas Frank, URL Address: [facility] [address], [place] [address] [phone] When: only if needed [facility] Evaluation + Plan note No data available for this section [facility] Evaluation note Diagnosis Coronary artery disease involving [place] coronary artery of [place] heart without angina pectoris- Primary Hypertension, unspecified type Lumbar spondylosis Lumbosacral spondylosis without myelopathy documented in this encounter [facility]* Diagnosis Abnormal stress test- Primary Other nonspecific abnormal cardiovascular system function study Nonrheumatic aortic valve stenosis Coronary artery disease involving [place] coronary artery of [place] heart without angina pectoris documented in this encounter [facility] System[facility]ructionsNot on filedocumented in this encounter [facility] SystemInstructionsNot on filedocumented in this encounter [facility] SystemInstructionsNot on filedocumented in this encounter [facility] Summary Purpose Family History No Family History Records FoundNo Family History Records FoundNo Family History Records FoundNo Family History Records FoundNo Family History Records Found Advance Directives No Advanced Directives Records FoundDocuments on File Type Date Recorded Patient Therapist'S Assistant Expl anation Advance Directive 12/15/2022 3:15 PM recor ds request 12/15/2022 Additional Source Comments (unrecognized sect ion and content) No Status Records FoundNo Status Records FoundNo Status Records FoundNo Status Records FoundNo Status Records Found INFORMATION SOURCE (unrecogn ized section and content) DATE CREATED AUTHOR 09/19/2021 [facility] DATE CREATED AUTHOR AUTHOR'S ORGANIZ ATION 10/17/2022 [facility] DATE CREATED AUTHOR AUTHOR'S ORGANIZ ATION 05/15/2023 [facility] DATE CREATED AUTHOR AUTHOR'S ORGANIZ ATION 06/14/2023 [facility] DATE CREATED AUTHOR AUTHOR'S ORGANIZ ATION 09/30/2023 [facility] Reason for Visit (unrecogniz ed section and content) Reason Comments Follow-up echo Reason Comments Follow-up EST PT F/U CATH DONE SCHED W/PT L/S VG Care Teams (unrecognized sec tion and content) Production Editor Relationship Specialty Start Date End Date Shmuel Judge DO [address] [place] [address] PCP - General Family Medicine 12/15/22 Production Editor Relationship Specialty Start Date End Date Shmuel Judge DO [address] [place] [address] [place] [address] PCP - General Family Medicine 12/15/22 Production Editor Relationship Specialty Start Date End Date Shmuel Judge DO [address] [place] [address] PCP - General Family Medicine 12/15/22 FOR [...] BE BASED ON THE PRIMARY CLINICAL RECORDS. [employer] [facility]. provides no warranty or guarantee of the accuracy or completeness of information in this document.
[2023-10-06 10:19] VITALS: BP 146/93; PULSE 80; TEMP 36.3; O2SAT 96
[2023-10-06] MEDS: 0.9 % SODIUM CHLORIDE 500 ML 50 ML IV (10:31)
[2023-10-06] MEDS: LIDOCAINE HCL 2% 400 MG/20 ML MDV 5 ML INJ (10:57)
[2023-10-06] MEDS: BUPIVACAINE HCL 0.25% PF 25 MG/10 ML VIAL 4 ML INJ (10:57)
[2023-10-06] MEDS: METHYLPREDNISOLONE ACETATE 40 MG/ML VIAL INJ (10:57)
--- NOTE | 2023-10-06 11:04 | P.ON_ITS ---
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 Post lesioning injection of 2 mL each of 0.25% Marcaine and 2% lidocaine with Depo-Medrol 40mg. 0.5 to 1 mL injected at each site IV in place yes If Intravenous fluids: NS at KVO Anesthesia local 2% lidocaine for Anesthesia Other: MAC Timeout process compliant After informed consent obtained. Patient brought to the procedure room placed in the prone position skin overlying the area was prepped and draped in a sterile fashion using betadine. 25 gauge needle was used to create a skin wheal over each of the targeted areas utilizing 2% lidocaine. A rhizotomy needle with a 10 mm active tip was inserted over each of the anesthetized areas and directed towards four different areas in the distribution of the lateral cutaneous branches of the iliohypogastric nerve, accomplished under fluoroscopic guidance. After encountering the same we had positive sensory stimulation, negative motor stimulation was noted. lesions were then created. Post lesioning, steroid solution was injected needles removed. Patient was transferred to recovery room in stable condition to be discharged home after meeting criteria. Anesthesia: MAC Surgeon: Christiano Boo Condition: stable
[2023-10-06 11:06] VITALS: BP 110/64; PULSE 76; TEMP 36.5; O2SAT 96
[2023-10-06 11:13] VITALS: BP 107/67; PULSE 78; TEMP 36.5; O2SAT 96
== END 2023-10-06 11:33 | disposition home or self-care (01) ==
LOC: SURGOUT 10:02
PROVIDERS: Visit Provider Anesthesiology Pain Medicine
DX: G57.81 Other specified mononeuropathies of right lower limb (principal)
CPT/HCPCS: 64640; 77002; J1010; J2704

== ENCOUNTER 2023-11-05 15:00 | Outpatient (OUT) | payer MEDICARE, SELFPAY ==
--- NOTE | 2023-11-05 15:13 | P.CN_ITS ---
Consult Note: HPI Data of Consult Patient: known to practice within the last 3 years Requesting Physician: Eva Onofre NP Primary Care Provider: Non-Staff Physician, Family Provider: DMISC Consult Narrative Reason for consult: chronic back and hip pain Narrative: Jair Staley a pleasant 82 year old male presents for follow up on chronic low back and hip pain. Patient reporting increase in numbness tingling and pain radiating into groin and legs with ambulation and standing. Pt has a hx of lumbar facet arthropathy, DDD, and lumbar stenosis on prior MRI. Patient noticing improvement in pain and sleep with increase of norco to 7.5mg BID PRN moderate to severe pain. Recently underwent bilateral L3-4 TFESI and bilateral L4-5 TFESI with 50% improvement ongoing. Recently underwent Right Lateral cutaneous iliohypogastric nerve Radiofrequency ablation with 10-20% improvement. Patient continues to have axial low back pain. cc:: CC: Eva Onofre NP Review of Systems ROS Status of ROS 10 or more systems reviewed and unremark able except as noted in history and below Musculoskeletal Reports: back pain PFSH PFSH Medical History Low back pain ?M54.50 - Low back pain, unspecified (ICD-10) Acid reflux ?K21.9 - Gastro-esophageal reflux disease without esophagitis (ICD-10) Prostate cancer ?C61 - Malignant neoplasm of prostate (ICD-10) Heart murmur ?R01.1 - Cardiac murmur, unspecified (ICD-10) High cholesterol ?E78.00 - Pure hypercholesterolemia, unspecified (ICD-10) Hypertension ?I10 - Essential (primary) hypertension (ICD-10) Surgical History Hx of cystoscopy ?Z98.890 - Other specified postprocedural states (ICD-10) H/O umbilical hernia repair ?Z98.890 - Other specified postprocedural states (ICD-10) ?Z87.19 - Personal history of other diseases of the digestive system (ICD-10) History of tonsillectomy and adenoidectomy ?Z90.89 - Acquired absence of other organs (ICD-10) H/O hemorrhoidectomy ?Z98.890 - Other specified postprocedural states (ICD-10) Meds Home Medications and Allergies Home Medications ?Medication ?Instructions ?Recorded ?Confirmed ?Type aspirin 81 mg capsule 81 mg PO DAILY 11/14/22 10/06/23 History diclofenac sodium 50 mg 50 mg PO BID 11/14/22 10/06/23 History tablet,delayed release lisinopril 20 1 tab PO DAILY 11/14/22 10/06/23 History mg-hydrochlorothiazide 12.5 mg tablet melatonin 3 mg tablet 3 mg PO .HS 11/14/22 10/06/23 History methocarbamol 500 mg tablet 500 mg PO TID 11/14/22 10/06/23 History zvtovhgq-wfp-fjmbm acid 0.4 1 tab PO DAILY 11/14/22 10/06/23 History mg-lycopene 300 mcg-lutein 250 mcg tablet (Centrum Silver) omeprazole 40 mg capsule,delayed 40 mg PO DAILY 11/14/22 10/06/23 History release polyethylene glycol 3350 17 17 g PO DAILY 11/14/22 10/06/23 History gram/dose oral powder simvastatin 20 mg tablet 20 mg PO .HS 11/14/22 10/06/23 History hydrocodone 5 mg-acetaminophen 325 1 tab PO BID PRN pain #60 tabs 05/28/23 10/06/23 Rx mg tablet pregabalin 75 mg capsule (Lyrica) 75 mg PO TID 09/01/23 10/06/23 History Allergies Allergy/AdvReac Type Severity Reaction Status Date / Time No Known Drug Allergies Allergy Verified 10/06/23 10:37 Exam Constitutional Documenting provider has reviewed patient's vital signs: yes Common normals: no apparent distress, oriented x3, healthy appearing, alert and well nourished General appearance: cooperative [facility] Common normals: normocephalic, hearing grossly normal bilaterally and moist oral mucous membranes Head and scalp: normocephalic Eye Common normals: PERRL Pupil: PERRL Neck & C-Spine Common normals: full ROM General: normal visual inspection Chest Common normals: inspection of chest normal Respiratory Common normals: normal respiratory effort, no retractions and no use of accessory muscles Back & Pelvis Lumbar spine/lower back: ROM limited, pain with ROM and straight leg raise negative bilaterally Sacroiliac joints: SI joint(s) abnormal (right positive thigh thrust, jose smith. ) Other: strength 4/5 in BLE pain over right LCIH nerve positive facet loading tenderness over bilateral L4-5 L5-S1 facets Extremity Common normals: normal to inspection and full ROM Neuro Common normals: oriented x3, CN's II-XII intact bilaterally, moves all extremities, no focal motor deficits, no sensory deficits noted and deep tendon reflexes 2+ bilaterally Sensorium/orientation: alert Gait (neuro): assistive device used walker Motor exam: strength 5/5 throughout and no movement abnormalities noted Other: short term memory loss Psych Common normals: mental status grossly normal, thought process normal, cooperative, affect normal, speech normal and activity/motor behavior normal Speech: normal speech Thought process: normal thought process Results Additional Findings Additional findings: If on a controlled substance or opioids, I have checked an [place] report on this patient and there are no aberrancies noted in the prescribing history.??If on a controlled substance or opioid a drug screen was completed and reviewed within the last year, and if there has not been a drug screen completed we ordered one today to monitor higher risk, state monitored pain medication use. As part of providing excellent, safe, comprehensive care, the following was completed at our patient's visit: 1. A medication reconciliation and review to ensure accurate knowledge of current/active medications, including asking our patients to inform us about any kwid-afq-cfczegv medications or herbal remedies/nutritional supplements/alternative remedies. 2. A review to specifically ensure our patients have had annual screening for screening for depression, screening for tobacco use, and screening for unhealthy alcohol use. For concerning screenings had a discussion with the patient, provided patient education, and recommended follow-up with primary care provider when appropriate. If patient noted with a risk of falling, they received education on strength, gait, and balance training to prevent future risk of falling. Assessment and Plan Assessment and Plan (1) Lumbar spondylosis: (2) Lumbar stenosis with neurogenic claudication: (3) Chronic prescription opiate use: Assessment and Plan: I have refilled the patient's opioid prescriptions at the above noted dose and schedule.? I feel these medications are improving the patient's quality of life and allow them to tolerate activities of daily living as well as participate in recreational activity.? The patient does not report intolerable side effects. The patient is NOT opioid naive and non-pharmacologic and non-opioid treatment has failed to significantly relieve the patient's pain and improve functionality. The patient has a diagnosis that is related to a somatic or visceral pain etiology. ? ?? I reviewed with the patient the potential risks and side effects with the use of? opioid medications including but not limited to respiratory depression,? sedation, and even . I verified the patient has access to naloxone should? these effects occur. I advised the patient to avoid the use of any other? sedation substances including alcohol, THC, and benzodiazepines while? taking opioid medications due to the risk of compounding side effects and? detrimental outcomes. I reviewed the [employer], pain treatment agreement, urine? drug screen, and opioid start talking forms. The patient was advised to let? their family know they had Naloxone in case they would need to administer? the medication.? ?? A drug screen was completed within the last year, and no aberrancies were noted regarding their use of controlled substances. The patient understands they are subject to the terms and conditions of the pain contract that they have signed. ? ?? I have checked an [place] report on this patient today and there are no aberrancies noted in the prescribing history.? (4) Neuritis: (5) Muscle spasm: (6) Sacroiliac joint pain: Plan bilateral L4-5 L5-S1 medial branch block x2 working towards RFA under fluoroscopy, risks vs benefits discussed. all questions answered. continue lyrica to 75mg TID, side effects and risks vs benefits discussed continue norco to 7.5-325mg BID PRN side effects and risks vs benefits discussed, pt reports functional improvement without side effect continue HEP as tolerated f/u after injection
--- OUTSIDE RECORDS SUMMARY | 2023-11-05 15:24 | XMS_ITS | CCD ---
Author Organization [facility] Care Team Providers Care Vehicle Safety Inspector Name Role Phone LIZET COLEMAN Primary Care [...] DR ESTEPHANIE Dash Admitting Unavailable MISC, DR DOCTOR Primary Care Unavailable LAKSHMIPATHY ., NARENDRANATH Attending [...] by mouth in the morning. 0 Active rvthpevorkrm-zhca-zx lic acid (CERTAVITE-ANTIOXIDA NT) 18-400 mg-mcg tablet [...] Date: 09/18/21 Status: Ordered polyethylene glycol 3350 04948 mg powder for oral solution (3 sources) [...] disease (5 sources) Atherosclerotic heart disease of lummi coronary artery without angina pectoris; Translations: [Coronary [...] Test Name Value Interpretation Reference Range Facil qing Patient Educationon 09-19-19 Patient Education Oncology Prostate [...] Are older than age 65. ? Are -Mauritanian. ? Are obese. ? Have a family [...] Follow these instructions at home: ? Take kgjv-uqe-swtxnia and prescription medicines only as told by [...] cancer specialis (more content not included)... Normal [facility] Urology Office/Clinic Noteon 09-18-2021 Urology Office/Clinic [...] Only if needed [facility] [address] [place] [address] [phone] Additional Instructions: Patient Education Prostate Cancer I, [...] No qualifying data Procedure/Surgical History Cystoscopy (07/06/2012), [place] 226 brachytherapy (05/21/2006), Transrectal biopsy of prostate [...] EDT P (more content not included)... Normal [facility] Comment on above: Result Comment: Elec tronically Signed By: Rojas KELLY MD\.br\Date and Time Signed: 09/18/21 09:27 EDT\.br\Electronically Co-Signed By: Kathy Hilario MA\.br\Date and Time Co-Signed: 09/18/21 09:24 EDT Lab Reportson 09-12-2021 Lab Reports [id number] 0CD:127 Normal [facility] Lab Reportson 02-14-2021 Lab Reports [id number] 0CD:127 Normal [facility] Lab Reports [id number] 0CD:127 Normal [facility] Comment on above: Other Comment: DARCY NGUYỄN Ambulatory Clinical Summaryo n 10-12-2020 Ambulatory Clinical Summary {[id number] [facility] Patient Educationon 10-13-19 Patient Education [...] Document Reviewed: 01/28/2008 ExitCare? Patient Information ?2013 Paymentus. [facility] Urology Office/Clinic Noteon 10-12-2020 Urology [...] Frank, URL [address] [place] [address] [place] [address]- [phone] Additional Instructions: 10mos. psa Patient Education Benign Prostatic Hyperplasia Xi Lopez , personally scribed for Dr. Kelly on [...] No qualifying data Procedure/Surgical History Cystoscopy (07/06/2012), [place] 226 brachytherapy (05/21/2006), Transrectal biopsy of prostate [...] (10/12/20 10:22: (more content not included)... Normal [facility] Comment on above: Result Comment: Elec tronically Signed By: Rojas KELLY MD\.br\Date and Time Signed: 10/12/20 11:11 EDT\.br\Electronically Co-Signed By: Xi [place] MA\.br\Date and Time Co-Signed: 10/12/20 11:07 EDT\.br\Electronically Co-Signed By: Adina NARVAEZ, Xi Carrollbr\Date and Time Co-Signed: 10/12/20 11:09 EDT Vital Signs Date Time Vital Sign Value Performing Clinician Trinh coelho 06-10-2023 09:58-0500 Body height 182.9 cm Edilson Llanes MD Work Phone: [employer] 06-10-2023 09:58-0500 Body mass index (BMI) [Ratio] 24.95 kg/m2 Edilson Llanes MD Work Phone: [employer] 06-10-2023 09:58-0500 Body weight 83.46 kg Edilson Llanes MD Work Phone: [employer] 06-10-2023 09:58-0500 Diastolic blood pressure 64 mm[Hg] Edilson Llanes MD Work Phone: [employer] 06-10-2023 09:58-0500 Heart rate 94 /min Edilson Llanes MD Work Phone: [employer] 06-10-2023 09:58-0500 SaO2% (BldA) [Mass fraction] 94 % Edilson Llanes MD Work Phone: [employer] 06-10-2023 09:58-0500 Systolic blood pressure 122 mm[Hg] Edilson Llanes MD Work Phone: [employer] 06-02-2023 16:24-0500 Body height 182.9 cm [employer] Work Phone: [employer] 06-02-2023 16:24-0500 Body mass index (BMI) [Ratio] 25.36 kg/m2 CardioFocuslong DO Work Phone: [employer] 06-02-2023 16:24-0500 Body temperature 98.1 [degF] CardioFocuslong DO Work Phone: [employer] 06-02-2023 16:24-0500 Body weight 84.82 kg Mode De Faireng DO Work Phone: [employer] 06-02-2023 16:24-0500 Diastolic blood pressure 60 mm[Hg] Shmuel Villegaslong DO Work Phone: [facility] 06-02-2023 16:24-0500 Heart rate 115 /min Shmuel Furlong DO Work Phone: [facility] 06-02-2023 16:24-0500 SaO2% (BldA) [Mass fraction] 93 % Shmuel Villegaslong DO Work Phone: [facility] 06-02-2023 16:24-0500 Systolic blood pressure 118 mm[Hg] Shmuel Villegaslong DO Work Phone: [facility] 09-18-2021 08:38-0400 Blood Pressure Location Rojas Epoch [facility] [place] [facility] [employer] [facility] 09-18-2021 08:38-0400 Diastolic blood pressure 91 mm[Hg] Rojas KELLY [facility] 09-18-2021 08:38-0400 Heart rate 93 /min Rojas KELLY [facility] [place] 09-18-2021 08:38-0400 Systolic blood pressure 142 mm[Hg] Rojas KELLY [facility] Encounters Encounter Date Encounter Type Care Provider Facility Start: 09-21-2023 End: 09-22-2023 ambulatory Cesar Brownlee MD Facility: [facility] Start: 09-07-2023 End: 09-08-2023 ambulatory Cesar Brownlee MD Facility:[facility] [place] Start: 06-10-2023 End: 01-03-2024 ambulatory EDILSON LLANES 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 Start: 06-09-2023 Telephone encounter [facility] Start: 06-02-2023 End: 06-02-2023 Office outpatient visit 15 minutes Shmuel Judge DO Work Phone: [facility] Comment on above: Coronary artery dise ase involving lummi coronary artery of lummi heart without angina pectoris (Primary Dx); Hypertension, unspecified type; Lumbar spondylosis Start: 05-13-2023 End: 05-13-2023 ambulatory Erika GLASS [facility] Start: 11-14-[address] DOCTOR NUNO [...] encounter procedure [facility]jas KELLY [facility] Procedures Date Procedure Procedure Detail Performing Clinician [...] of foreign body from bladder Rojas KELLY [employer] [facility] Comment on above: cysto, joseph rg, urete roscopy, evacuation of stone particles from bladder Brachytherapy of [place] using fluoroscopic guidance Rojas KELLY Hernia repair Rojas KELLY [facility] Tonsillectomy Rojas KELLY [facility] Plan of Treatment Date Care Activity Detail Author Start: 06-02-2024 Adult BMI Screening Adult BMI Screening [facility] Start: 06-02-2024 Depression Screening Depression Screening [facility] Start: 06-02-2024 Fall Risk Screening Fall Risk Screening [facility] Start: 06-02-2024 Tobacco Screening Tobacco Screening [facility] Start: 05-06-2024 Adult BMI Screening Adult BMI Screening [facility] Start: 05-06-2024 Tobacco Screening Tobacco Screening [facility] Start: 12-16-2023 Fall Risk Screening Fall Risk Screening [facility] Start: 06-10-2023 End: 06-10-2023 Patient encounter procedure 06/10/2023 9:45 AM EST Office Visit [facility] [address] [place] [address] Edilson Llanes MD [address] [place] [address] [facility] Start: 02-06-2023 COVID-19 Vaccine ( season) COVID-19 Vaccine ( season) [facility] Start: 02-06-2023 Influenza vaccination Influenza Vaccine [facility] Start: 1991 Administration of varicella zoster vaccine Zoster (Shingles) Vaccine (1 of 2) [facility] Start: 1960 DTaP,Tdap and Td Vaccines (1 - Tdap) DTaP,Tdap and Td Vaccines (1 - Tdap) [facility] Start: 1959 Adult BMI Follow Up Plan Adult BMI Follow Up Plan [facility] Start: 1941 Medicare Annual Wellness Visit Medicare Annual Wellness Visit [facility] Immunizations Immunization Date Immunization Notes Care Provider Fa cili 03-19-2022 influenza virus vaccine, unspecified formulation Shmuel Judge DO Work Phone: [facility] 03-21-2021 influenza virus vaccine, unspecified formulation Rojas Epoch [facility] Ginny 11-05-2020 SARS-CoV-2 (COVID-19 ) Ad26 vaccine, recombinant Rojas Epoch [facility] 10-05-2020 SARS-CoV-2 (COVID-19 ) mRNA-1273 vaccine Rojas Epoch [facility] iloho Payers Date Payer Category Payer Medicare [id number] 2023 Unknown 2020 Medicare [id number] 1959 Medicare [id number] 1940 Unknown [id number] 2.16.84 [id number] 1941 Unknown [id number] 2.16.84 [id number] 1941 Unknown [id number] 2.16.84 [id number] 1941 Unknown [id number] 2.16.84 [id number] 1941 Unknown [id number] 2.16.84 [id number] 1941 Unknown [id number] 2.16.84 [id number] 1941 Unknown [id number] 2.16.84 [id number] 1941 Unknown [id number] 2.16.84 [id number] 1941 Unknown [id number] 2.16.84 [id number] 1941 Unknown [id number] 2.16.84 [id number] 1941 Unknown [id number] 2.16.8 [id number] 1941 Unknown [id number] 2.16.84 [id number] 1941 Unknown [id number] 2.16. [id number] 1941 Unknown [id number] 2.16. [id number] Social History Date Type Detail Facility Start: 09-18-2021 End: 12-15-2022 Tobacco smoking status Ex-smoker (finding) [facility] Start: 06-02-2023 End: 06-10-2023 Sex Assigned At Male [facility] End: 12-09-1971 History of tobacco use Current smoker [facility] End: 12-09-1971 History of tobacco use Cigarette Smoker [facility] Start: 12-15-2022 End: 06-10-2023 Cigarettes smoked current (pack per day) - Reported 2 [facility] History of tobacco use Passive smoker [facility] Start: 12-15-2022 Tobacco use and exposure Smokeless tobacco non-user [facility] Start: 06-02-2023 End: 06-10-2023 Alcohol intake Lifetime non-drinker (finding) [facility] Adolescent depressio n screening assessment 2 [facility] Start: 1940 Sex Assigned At Not on file P [facility] Clinical Notes 09-18-2021 to 06-10-2023 Edilson Llanes MD - 06/10/2023 9:45 AM ESTTelephone Encounter - Jesika Contreras, [facility] - 06/09/2023 11:16 AM ESTTelephone Encounter - Jesika Contreras, [facility] - 06/09/2023 11:16 AM EST Note Date & Type Note Facility 06-10-2023 History of Presen t illness Narrative Jair Staley Date of visit: 06/10/2023 Date of : 1940 Age: 83 y.o. 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 90 tablet 3 dlvqqyzzbxok-xogl-afikq acid (CERTAVITE-ANTIOXIDANT) 18-400 mg-mcg tablet Take 1 [...] valve stenosis 3. 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 documented in this encounter [facility] 06-09-2023 Telephone encounter Note Left message for patient to remind them to bring their most current medication list with them to their appointment. [facility] 06-02-2023 History of Presen t illness Narrative Subjective Patient ID: Jair Staley is a 83 y.o. male. Jair presents for recheck of his heart. He has had several obstacles and getting his heart checked out due to his insurance. He has [employer] and [facility] does not take [employer]. He had his heart catheterization done at [facility] in [place] through the [employer] system. He has a follow-up appointment June 10 with a [facility] nurse advocate since he will be [place] and they take [place]. He has no new problems to report. He and his daughter do not really know what is going on with his heart except that they will be talking with a nurse advocate next week about it. They have not [...] Exam Vitals reviewed. Exam conducted with a commercial sales representative present (Daughter). HENT: Head: Normocephalic. 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 documented in this encounter [facility] 10-02-2022 Note CONSULTATION CONSULTATION DATE: 10/02/2022 [...] our patients to inform us about any zepx-lmg-fgdtkqw medications or herbal remedies/nutritional supplements/alternative remedies. 2. [...] options with their primary care provider. [facility] 07-10-2022 Note CONSULTATION CONSULTATION DATE: HISTORY [...] discontinue the tramadol and start him on Suring 5/325 b.i.d. He is able to take [...] for re-evaluation, or sooner if needed. [facility] 06-05-2022 Note CONSULTATION CONSULTATION DATE: 06/05/2022 [...] four months' time, unless otherwise indicated. [facility] 03-06-2022 Note CONSULTATION CONSULTATION DATE: 03/08/2022 [...] agree with this plan of care. [facility] 12-05-2021 Note CONSULTATION CONSULTATION DATE: 12/05/2021 [...] has been evaluated by Dr. Voss in [place] [facility]. He was found [...] and they are given to him scheduled oqucgb-urr-axwqg. He has consistent radicular pain down his [...] of care and all questions were answered. [facility] Signed and Approved by: EDMUNDO GARCIA . 12/12/2021 16:27:00 [facility] 10-24-2021 Note CONSULTATION CONSULTATION DATE: 10/24/2021 This is a pleasant 81-year-old male who is accompanied by his daughter for a 3-month follow-up for his chronic lower back pain. The gentleman has mild memory loss and has recently moved into an assistive living at [facility]. He does have a spinal canal stenosis [...] flat decrease his pain. Current medications include Gdnzikwmai95 mg b.i.d. Robaxin 500 mg b.i.d., and [...] patient will follow-up in the clinic post-procedure. [facility] Signed and Approved by: EDMUNDO GARCIA . 10/28/2021 15:06:00 [facility] 09-18-2021 Hospital Discharg e instructions Patient [...] who: Are older than age 65. Are -Mauritanian. Are obese. Have a family history of [...] cells. Follow these instructions at home: Take kydr-eoz-znsdyro and prescription medicines only as told by [...] 05/25/2006 Document Revised: 05/07/2018 Document Reviewed: 02/02/2017 [employer] Patient Education 2020 [employer]. 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- Primary Hypertension, unspecified type Lumbar spondylosis Lumbosacral spondylosis without myelopathy documented in this encounter [facility] System[facility]* Diagnosis Abnormal stress test- Primary Other nonspecific abnormal cardiovascular system function study Nonrheumatic aortic valve stenosis 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 [facility]ructionsNot on filedocumented in this encounter [facility] SystemInstructionsNot on filedocumented in this encounter [facility] SystemInstructionsNot on filedocumented in this encounter [facility] Summary Purpose Family History No Family History Records FoundNo Family History Records FoundNo Family History Records FoundNo Family History Records FoundNo Family History Records Found Advance Directives No Advanced Directives Records FoundDocuments on File Type Date Recorded Patient Testing Manager Expl anation Advance Directive 12/15/2022 3:15 PM recor ds request 12/15/2022 Additional Source Comments (unrecognized sect ion and content) No Status Records FoundNo Status Records FoundNo Status Records FoundNo Status Records FoundNo Status Records Found INFORMATION SOURCE (unrecogn ized section and content) DATE CREATED AUTHOR 09/19/2021 [facility] DATE CREATED AUTHOR AUTHOR'S ORGANIZ ATION 10/17/2022 [facility] DATE CREATED AUTHOR AUTHOR'S ORGANIZ ATION 05/15/2023 [facility] DATE CREATED AUTHOR AUTHOR'S ORGANIZ ATION 06/14/2023 [facility] DATE CREATED AUTHOR AUTHOR'S ORGANIZ ATION 09/30/2023 [facility] Reason for Visit (unrecogniz ed section and content) Reason Comments Follow-up echo Reason Comments Follow-up EST PT F/U CATH DONE SCHED W/PT L/S VG Care Teams (unrecognized sec tion and content) Vehicle Safety Inspector Relationship Specialty Start Date End Date Shmuel Judge DO [address] [facility], [place] [address] PCP - General Family Medicine 12/15/22 Vehicle Safety Inspector Relationship Specialty Start Date End Date Shmuel Judge DO [address] [place] [address] PCP - General Family Medicine 12/15/22 Vehicle Safety Inspector Relationship Specialty Start Date End Date Shmuel Judge DO [address], [place] [address] PCP - General Family Medicine 12/15/22 FOR [...] BE BASED ON THE PRIMARY CLINICAL RECORDS. [facility] [employer] [facility]. provides no warranty or guarantee of the accuracy or completeness of information in this document.
== END 2023-11-05 15:01 | disposition home or self-care (01) ==
LOC: PM 15:00
PROVIDERS: Visit Provider Nurse Practitioner
DX: M47.816 Spondylosis without myelopathy or radiculopathy, lumbar region (principal); M48.062 Spinal stenosis, lumbar region with neurogenic claudication; Z79.891 Long term (current) use of opiate analgesic; M79.2 Neuralgia and neuritis, unspecified; M62.838 Other muscle spasm; M53.3 Sacrococcygeal disorders, not elsewhere classified
CPT/HCPCS: G0463

== ENCOUNTER 2023-12-14 10:01 | Day surgery (SDC) | payer MEDICARE, SELFPAY ==
[2023-12-14 10:12] VITALS: BP 129/82; PULSE 72; TEMP 36.2; O2SAT 96
[2023-12-14 10:53] VITALS: BP 130/63; PULSE 73; O2SAT 93
[2023-12-14 10:54] VITALS: BP 121/59; PULSE 70; O2SAT 93
[2023-12-14] MEDS: BUPIVACAINE HCL 0.25% PF 25 MG/10 ML VIAL INJ (10:54)
[2023-12-14] MEDS: LIDOCAINE HCL 2% 400 MG/20 ML MDV 15 ML INJ (10:55)
--- NOTE | 2023-12-14 11:00 | W.PM.PROCNOT ---
Date of procedure: 12/14/23 Pre-op diagnosis: Pain due to lumbar spondylosis without myelopathy Post-op diagnosis: same as pre-op Procedure: Procedure: Bilateral L4-5, L5-S1 medial branch block Medications: Bupivacaine 0.25% 6cc The patient was seen and examined in the preoperative holding area.? An informed consent was obtained and placed on the chart.? The patient was brought to the medical procedure unit and placed in the prone position.? A timeout was completed verifying correct patient, procedure site, positioning, plan, and special equipment.? Using aseptic technique, the needle was placed at left L4. Under direct fluoroscopic visualization a Quincke-tipped spinal needle was advanced to the junction of the superior articulating process with the transverse process at the designated medial branch segment.? Preceded by negative aspiration, the above-mentioned injectate was placed in 1 mL aliquots.? The procedure was repeated at left L5, S1.? The needle was removed and insertion site was covered. The same procedure, at the same levels, was completed on the right side. The patient was taken to the postprocedural recovery area and monitored for an appropriate length of time before found suitable for discharge in the company of a responsible adult. Anesthesia: Local Surgeon: Cesar Brownlee Pathology: none sent Condition: stable Disposition: no change
== END 2023-12-14 11:04 | disposition home or self-care (01) ==
PROVIDERS: Visit Provider Anesthesiology
DX: M47.816 Spondylosis without myelopathy or radiculopathy, lumbar region (principal)
CPT/HCPCS: 64493; 64494; J0665

== ENCOUNTER 2023-12-17 14:34 | Outpatient (OUT) | payer MEDICARE, SELFPAY ==
--- NOTE | 2023-12-17 15:39 | P.CN_ITS ---
Consult Note: HPI Data of Consult Patient: known to practice within the last 3 years Requesting Physician: Eva Onofre NP Primary Care Provider: Non-Staff Physician, Family Provider: DMABILIO Consult Narrative Reason for consult: chronic back and hip pain Narrative: Jair Staley a pleasant 82 year old male presents for follow up on chronic low back and hip pain. Patient reporting increase in numbness tingling and pain radiating into groin and legs with ambulation and standing. Pt has a hx of lumbar facet arthropathy, DDD, and lumbar stenosis on prior MRI. Patient noticing improvement in pain and sleep with increase of norco to 7.5mg BID PRN moderate to severe pain. Recently underwent bilateral L3-4 TFESI and bilateral L4-5 TFESI with 50% improvement less than 3 months. Recently underwent Right Lateral cutaneous iliohypogastric nerve Radiofrequency ablation with 10-20% improvement. Recent bilateral L4-5 L5-S1 facet medial branch block only provided 40% improvement. cc:: CC: Eva Onofre NP Review of Systems ROS Status of ROS 10 or more systems reviewed and unremark able except as noted in history and below Musculoskeletal Reports: back pain PFSH PFSH Medical History Low back pain ?M54.50 - Low back pain, unspecified (ICD-10) Acid reflux ?K21.9 - Gastro-esophageal reflux disease without esophagitis (ICD-10) Prostate cancer ?C61 - Malignant neoplasm of prostate (ICD-10) Heart murmur ?R01.1 - Cardiac murmur, unspecified (ICD-10) High cholesterol ?E78.00 - Pure hypercholesterolemia, unspecified (ICD-10) Hypertension ?I10 - Essential (primary) hypertension (ICD-10) Surgical History Hx of cystoscopy ?Z98.890 - Other specified postprocedural states (ICD-10) H/O umbilical hernia repair ?Z98.890 - Other specified postprocedural states (ICD-10) ?Z87.19 - Personal history of other diseases of the digestive system (ICD-10) History of tonsillectomy and adenoidectomy ?Z90.89 - Acquired absence of other organs (ICD-10) H/O hemorrhoidectomy ?Z98.890 - Other specified postprocedural states (ICD-10) Meds Home Medications and Allergies Home Medications ?Medication ?Instructions ?Recorded ?Confirmed ?Type aspirin 81 mg capsule 81 mg PO DAILY 11/14/22 12/14/23 History diclofenac sodium 50 mg 50 mg PO BID 11/14/22 12/14/23 History tablet,delayed release lisinopril 20 1 tab PO DAILY 11/14/22 12/14/23 History mg-hydrochlorothiazide 12.5 mg tablet melatonin 3 mg tablet 3 mg PO .HS 11/14/22 12/14/23 History methocarbamol 500 mg tablet 500 mg PO TID 11/14/22 12/14/23 History djbiwjxp-bcr-nklgb acid 0.4 1 tab PO DAILY 11/14/22 12/14/23 History mg-lycopene 300 mcg-lutein 250 mcg tablet (Centrum Silver) omeprazole 40 mg capsule,delayed 40 mg PO DAILY 11/14/22 12/14/23 History release polyethylene glycol 3350 17 17 g PO DAILY 11/14/22 12/14/23 History gram/dose oral powder simvastatin 20 mg tablet 20 mg PO .HS 11/14/22 12/14/23 History pregabalin 75 mg capsule (Lyrica) 75 mg PO TID 09/01/23 12/14/23 History hydrocodone 7.5 mg-acetaminophen 1 tab PO BID PRN pain #60 tabs 12/01/23 12/14/23 Rx 325 mg tablet Allergies Allergy/AdvReac Type Severity Reaction Status Date / Time No Known Drug Allergies Allergy Verified 12/14/23 10:20 Exam Constitutional Documenting provider has reviewed patient's vital signs: yes Common normals: no apparent distress, oriented x3, healthy appearing, alert and well nourished General appearance: cooperative [facility] Common normals: normocephalic, hearing grossly normal bilaterally and moist oral mucous membranes Head and scalp: normocephalic Eye Common normals: PERRL Pupil: PERRL Neck & C-Spine Common normals: full ROM General: normal visual inspection Chest Common normals: inspection of chest normal Respiratory Common normals: normal respiratory effort, no retractions and no use of accessory muscles Back & Pelvis Lumbar spine/lower back: ROM limited, pain with ROM and straight leg raise negative bilaterally Sacroiliac joints: SI joint(s) abnormal (right positive thigh thrust, jose smith. ) Other: strength 4/5 in BLE pain over right LCIH nerve positive facet loading tenderness over bilateral L4-5 L5-S1 facets Extremity Common normals: normal to inspection and full ROM Neuro Common normals: oriented x3, CN's II-XII intact bilaterally, moves all e xtremities, no focal motor deficits, no sensory deficits noted and deep tendon reflexes 2+ bilaterally Sensorium/orientation: alert Gait (neuro): assistive device used walker Motor exam: strength 5/5 throughout and no movement abnormalities noted Other: short term memory loss Psych Common normals: mental status grossly normal, thought process normal, cooperative, affect normal, speech normal and activity/motor behavior normal Speech: normal speech Thought process: normal thought process Results Additional Findings Additional findings: If on a controlled substance or opioids, I have checked an [place] report on this patient and there are no aberrancies noted in the prescribing history.??If on a controlled substance or opioid a drug screen was completed and reviewed within the last year, and if there has not been a drug screen completed we ordered one today to monitor higher risk, state monitored pain medication use. As part of providing excellent, safe, comprehensive care, the following was completed at our patient's visit: 1. A medication reconciliation and review to ensure accurate knowledge of current/active medications, including asking our patients to inform us about any [id number] medications or herbal remedies/nutritional supplements/alternative remedies. 2. A review to specifically ensure our patients have had annual screening for screening for depression, screening for tobacco use, and screening for unhealthy alcohol use. For concerning screenings had a discussion with the patient, provided patient education, and recommended follow-up with primary care provider when appropriate. If patient noted with a risk of falling, they received education on strength, gait, and balance training to prevent future risk of falling. Assessment and Plan Assessment and Plan (1) Lumbar stenosis with neurogenic claudication: (2) Lumbar spondylosis: (3) Sacroiliac joint pain: (4) Muscle spasm: (5) Neuritis: (6) Chronic prescription opiate use: Assessment and Plan: I feel these medications are improving the patient's quality of life and allow them to tolerate activities of daily living as well as participate in recreational activity.? The patient does not report intolerable side effects. The patient is NOT opioid naive and non-pharmacologic and non-opioid treatment has failed to significantly relieve the patient's pain and improve funct ionality. The patient has a diagnosis that is related to a somatic or visceral pain etiology. ? ?? I reviewed with the patient the potential risks and side effects with the use of? opioid medications including but not limited to respiratory depression,? sedation, and even . I verified the patient has access to naloxone should? these effects occur. I advised the patient to avoid the use of any other? sedation substances including alcohol, THC, and benzodiazepines while? taking opioid medications due to the risk of compounding side effects and? detrimental outcomes. I reviewed the [employer], pain treatment agreement, urine? drug screen, and opioid start talking forms. The patient was advised to let? their family know they had Naloxone in case they would need to administer? the medication.? ?? A drug screen was completed within the last year, and no aberrancies were noted regarding their use of controlled substances. The patient understands they are subject to the terms and conditions of the pain contract that they have signed. ? ?? I have checked an [place] report on this patient today and there are no aberrancies noted in the prescribing history.? Plan Unfortunately with overall lack of response to procedures due to multiple etiologies of pain I believe the patient should consider a spinal cord stimulator trial. Educational handout provided. could consider caudal JESSICA for multilevel stenosis and neurogenic claudication, for axial low back pain could consider bilateral L2-3 L3-4 facet medial branch block x2 working towards RFA at this time no further interventions continue current medications, tolerating well without side effects UDS today
== END 2023-12-17 14:35 | disposition home or self-care (01) ==
LOC: PM 14:35
PROVIDERS: Visit Provider Nurse Practitioner
DX: M48.062 Spinal stenosis, lumbar region with neurogenic claudication (principal); M47.816 Spondylosis without myelopathy or radiculopathy, lumbar region; M53.3 Sacrococcygeal disorders, not elsewhere classified; M62.838 Other muscle spasm; M79.2 Neuralgia and neuritis, unspecified; Z79.899 Other long term (current) drug therapy
CPT/HCPCS: G0463